=== PATIENT | male | born 1945 | race Caucasian/White ===

== ENCOUNTER 2016-12-26 10:43 | Emergency (ER) | payer MEDICARE, OTHER ==
[~2016-12-26] VITALS: Ht 190.5 cm; Wt 131.5 kg
[2016-12-26] MEDS ORDERED: TYLE1TAB5 PO (10:56)
[2016-12-26] MEDS ORDERED: ALBU17IN INH (10:56)
[2016-12-26 11:44] LABS: BASO % 0.5 % (0.0-1.0); EOS # 0.1 K/mm3 (0.0-0.50); EOS % 2.7 % (0.0-3.0); LARGE UNSTAINED CELL # 0.1 K/mm3 (0.0-0.4); LARGE UNSTAINED CELL % 2.2 % (0.0-4.0); LYMPH # 0.7 K/mm3 (1.5-4.5); LYMPH % 15.9 % (24.0-44.0); MEAN CORPUSCULAR HEMOGLOBIN 31.5 pg (27.0-33.0); MEAN CORPUSCULAR HGB CONC 34.5 g/dl (32.0-36.5); MEAN CORPUSCULAR VOLUME 91.2 fl (80.0-96.0); MONO # 0.3 K/mm3 (0.0-0.8); MONO % 7.9 % (0.0-5.0); NEUTROPHILS # 2.8 K/mm3 (1.8-7.7); NEUTROPHILS % 70.8 % (36.0-66.0); PLATELET COUNT, AUTOMATED 147 k/mm3 (150-450); RED CELL DISTRIBUTION WIDTH 13.6 % (11.5-14.5); WHITE BLOOD COUNT 3.9 K/mm3 (4.0-10.0)
[2016-12-26 11:45] LABS: INR 1.09
[2016-12-26 12:05] LABS: ANION GAP 9 MEQ/L (8-16); BLOOD UREA NITROGEN 17 MG/DL (7-18); CALCIUM LEVEL 8.3 MG/DL (8.8-10.2); CARBON DIOXIDE LEVEL 24 MEQ/L (21-32); CHLORIDE LEVEL 110 MEQ/L (98-107); CREATININE FOR GFR 0.87 MG/DL (0.70-1.30); GLOMERULAR FILTRATION RATE > 60.0 (>49); GLUCOSE, FASTING 124 MG/DL (80-110); POTASSIUM SERUM 4.1 MEQ/L (3.5-5.1); SODIUM LEVEL 143 MEQ/L (136-145)
--- NOTE | 2016-12-26 12:16 | REP ---
CT study of the brain without contrast: History: CVA. No comparison study. Findings: Digital preliminary assistant research scientist radiograph is unremarkable. Bone window settings demonstrate an intact bony calvarium. Visualized paranasal sinuses are clear. No intraorbital abnormality is appreciated. There is mild diffuse atrophy. Mild vascular calcification is noted in the distal carotid arteries. There is no evidence of intracranial hemorrhage. No extra-axial fluid collection, mass, infarct or midline shift is seen. Salmeron white differentiation pattern is normal above and below the tentorium. Impression: Mild diffuse atrophy and vascular calcification. No acute intracranial abnormality. Signed by Silviano Dinero MD 12/26/2016 01:14 P
--- NOTE | 2016-12-26 12:25 | REP ---
Portable chest x-ray: Single view. History: CVA. Findings: EKG monitoring electrodes overlie the chest. The lungs are symmetrically aerated and clear. Heart is not enlarged. The aorta is slightly tortuous. No bony abnormality is seen. Pulmonary vasculature is not increased. Impression: No active disease. Signed by Silviano Dinero MD 12/26/2016 01:14 P
[2016-12-26] MEDS ORDERED: MECLIZINE 25 MG TABLET PO ONE (12:30)
[2016-12-26] MEDS ORDERED: NS 500 ML IV ONE (13:15)
--- NOTE | 2016-12-26 15:06 | REP ---
Brain MRI study without contrast: History: Vertigo. Technique: Axial and sagittal imaging planes are utilized for T1 and T2-weighted scans. Sequences include spin-echo, fast spin echo, FLAIR, and diffusion weighted sequences. MRI findings: No bony calvarial lesion is seen. Craniocervical junction and upper cervical cord are normal in appearance. There is no MR evidence of significant paranasal sinus disease. No intraorbital abnormality is appreciated. There is no evidence of intracranial hemorrhage. Diffusion weighted scan show no evidence to suggest acute ischemia. Salmeron-white differentiation pattern is normal above and below the tentorium. There is no evidence of infarct, mass, extra-axial fluid collection or midline shift. Impression: Minimal diffuse atrophy, no acute intracranial lesion. Signed by Silviano Dinero MD 12/26/2016 05:11 P
--- NOTE | 2016-12-26 15:45 | REP ---
MR angiography the brain without contrast: History: Vertigo. Technique: 3-D [id number] MR angiography of the brain is acquired in the usual fashion and maximal intensity projection images were generated in rotational format about the vertical and horizontal axes. In addition, source axial T1-weighted images are viewed in cine mode. MR angiographic findings: The distal vertebral arteries are patent , left larger than right. Basilar artery is a little tortuous but widely patent. The posterior cerebral and superior cerebellar vessels are normal and symmetric. The distal internal carotid arteries are unremarkable. Anterior and middle cerebral arteries appear intact. The A1 segment of the right anterior cerebral artery is somewhat hypoplastic but patent. There is no visible st aneurysm or arteriovenous malformation. Impression: Unremarkable MR angiography the brain. Signed by Silviano Dinero MD 12/26/2016 03:36 P
[2016-12-26 16:44] VITALS: BP 149/88
[2016-12-26] MEDS ORDERED: MECL-68 PO (16:47)
--- NOTE | 2016-12-26 20:33 | ECGEPIP ---
Stationary ECG Study [facility] - ED Test Date: 2016-12-26 Pat Name: COREY SANDHU Department: Room: - Gender: M Java Systems Analyst: ct : 1945 Requested By: Yamilka Herbert Order Number: [id number] Reading MD: Yamilka Herbert Measurements Intervals Margie Rate: 52 P: 53 UT: 158 QRS: -4 QRSD: 108 T: 58 QT: 450 QTc: 419 Interpretive Statements SINUS BRADYCARDIA NSTTW ABNORMALITY NO PRIOR FOR COMPARISON Electronically Signed On 12-26-2016 20:33:09 EDT by Yamilka Herbert
== END 2016-12-26 17:02 | disposition home or self-care (01) ==
LOC: EDBD 10:43 → M ED 11:51
DX: H81.10 Benign paroxysmal vertigo, unspecified ear (principal); R51 Headache

== ENCOUNTER → 2017-02-21 | Outpatient (REF) | payer MEDICARE, OTHER ==
[~2017-02-21] MED LIST: ALBU17IN INH; MECL-68 PO; TYLE1TAB5 PO
== END ==
LOC: M LAB REF 12:48
PROVIDERS: ATTEND Family Medicine
DX: R74.0 Nonspecific elevation of levels of transaminase and lactic acid dehydrogenase [LDH] (principal)

== ENCOUNTER → 2017-03-16 | Outpatient (CLI) | payer MEDICARE, OTHER ==
--- NOTE | 2017-03-16 16:35 | REP ---
Digital diagnostic bilateral mammography with CAD and focused bilateral breast sonography: History: Lump in the left breast for 3 months. Becoming more tender. The patient has positive family history breast carcinoma in a sister and prostate carcinoma in a brother. Comparison mammography is from 08/29/2010. Mammographic findings: A skin marker is affixed to the skin at the site of the palpable lump. This projects in the upper outer quadrant of the left breast. Routine CC and MLO views of each breast were obtained. There is a flame-shaped area of subareolar parenchymal density in each breast compatible with gynecomastia. This is a little more extensive and prominent on the left than the right. No mass-like density is seen. No spiculation or architectural distortion is seen. No skin thickening or micro calcific cluster is observed. Sonographic findings: The left breast palpable lump area at 3 o'clock is scanned and bilateral retroareolar regions are scanned. Somewhat heterogeneous fibroglandular background echotexture is seen. No mass is seen by ultrasound at the palpable lump or elsewhere. No cyst is observed. Impression: BIRADS category II benign bilateral breast imaging findings. Findings compatible with bilateral gynecomastia, left more extensively than right. Clinical follow-up is advised. This mammogram was interpreted with the aid of an FDA-approved computer-aided detection system. The patient states he had a clinical breast exam in March 2017. The patient letter being requested is male patient M2. Signed by Silviano Dinero MD 03/16/2017 05:01 P
== END ==
LOC: M RAD 13:33
PROVIDERS: ATTEND Surgery
DX: N64.4 Mastodynia (principal)
CPT/HCPCS: 76642; G0204

== ENCOUNTER 2017-08-02 06:59 | Day surgery (SDC) | payer MEDICARE, OTHER ==
[~2017-08-02] VITALS: Ht 162.6 cm; Wt 125.2 kg
[~2017-08-02 06:59] MED LIST changes: +OMEP20CA3 PO; +VALA500T2 PO
[2017-08-02] MEDS ORDERED: LR 1,000 ML IV SCH ×3 (07:15→10:15)
[2017-08-02] MEDS ORDERED: BUPIVACAINE/EPIN 0.25% 30 ML VIAL As Ordered ONE (07:54)
[2017-08-02] MEDS ORDERED: LIDOCAINE 2% INJ 100 MG/5 ML SDV (FOR ANES.) As Ordered ONE (08:31)
[2017-08-02] MEDS ORDERED: PROPOFOL 200 MG/20 ML VIAL As Ordered ONE ×2 (08:31→08:55)
[2017-08-02] MEDS ORDERED: MIDAZOLAM INJ 2 MG/2 ML VIAL (J2250) As Ordered ONE (08:31)
[2017-08-02] MEDS ORDERED: fentaNYL 100 MCG/2 ML INJECTION (J3010) As Ordered ONE ×2 (08:31→08:57)
[2017-08-02] MEDS ORDERED: ONDANSETRON 4MG/2ML VIAL (J2405) As Ordered ONE (08:32)
[2017-08-02] MEDS ORDERED: METOCLOPRAMIDE INJ 10MG/2ML VIAL (J2765) As Ordered ONE (08:32)
[2017-08-02] MEDS ORDERED: KETOROLAC 60 MG/2 ML VIAL (J1885) As Ordered ONE (09:23)
--- NOTE | 2017-08-02 09:46 | RO ---
DATE OF PROCEDURE: 08/02/2017 PREPROCEDURE DIAGNOSIS: Left breast mass. POSTPROCEDURE DIAGNOSIS: Left gynecomastia. PROCEDURE: Left subcutaneous mastectomy for gynecomastia. SURGEON: Dr. Morgan Almaraz. DOCUMENTATION LIAISON: ANESTHESIA: General endotracheal anesthesia. ESTIMATED BLOOD LOSS: Minimal. FLUIDS: Crystalloid. DESCRIPTION OF PROCEDURE: The patient was brought to the operating and was given general anesthesia. After adequate anesthesia and preoperative antibiotics were given, the patient was prepped and draped in the usual sterile fashion. Local lidocaine mixed with epinephrine was infiltrated in the skin and subcutaneous tissue. A incision around the periareolar site was made with a skin knife. Electrocautery was used to cut through dermis and underlying subcutaneous tissue down to the breast tissue itself starting superiorly. The breast tissue was seen and dissection on the breast tissue/adipose tissue was created doing some blunt dissection as well as electrocautery. This was done on the superior aspect as well as the inferior aspect and then the posterior tissue attached to the nipple areolar complex was transected using electrocautery. After circumferentially doing some dissection anteriorly, dissection continued on the medial side until I got to a plane that was posterior to this breast tissue itself. Then it was dissected both superiorly and inferiorly using blunt dissection as well as electrocautery staying on the breast tissue. This was right down to the level of the fascia. It was mobilized off the fascia out to the lateral aspects, which was transected with electrocautery. Good hemostasis was achieved with electrocautery and the area was copious irrigated till clear. #3-0 Vicryl was used to approximate the dermis, #4-0 Vicryl was used to approximate the skin. Steri-Strips and a dry sterile dressing were applied. The patient was awakened from anesthesia, extubated and brought to the recovery room, awake, alert and hemodynamically stable. Sponge and needle counts were correct times two.
[2017-08-02] MEDS ORDERED: fentaNYL 100 MCG/2 ML INJECTION (J3010) IV PRN (10:00)
[2017-08-02] MEDS ORDERED: PERCOCET 5MG/325MG TAB PO PRN (10:00)
[2017-08-02] MEDS ORDERED: NORCO, ANEXSIA 5/325MG TABLET (HYDROcodone/ACETAMINOPHEN) PO PRN (10:15)
[2017-08-02] MEDS ORDERED: MORPHINE 2 MG/ML 1ML SYRINGE IV PRN (10:15)
[2017-08-02 10:58] VITALS: BP 119/76
[2017-08-02] MEDS ORDERED: KETOROLAC 30 MG/ML VIAL (J1885) IV PRN (15:00)
== END 2017-08-02 11:20 | disposition home or self-care (01) ==
LOC: M SDC 06:59
PROVIDERS: ATTEND Surgery
DX: N62 Hypertrophy of breast (principal); K21.9 Gastro-esophageal reflux disease without esophagitis; H81.49 Vertigo of central origin, unspecified ear; K44.9 Diaphragmatic hernia without obstruction or gangrene; M12.9 Arthropathy, unspecified; Z79.899 Other long term (current) drug therapy; Z96.653 Presence of artificial knee joint, bilateral
CPT/HCPCS: 19300; 88305; J0690; J1885; J2250; J2405; J2765; J3010

== ENCOUNTER → 2017-11-15 | Outpatient (REF) | payer MEDICARE, OTHER ==
[2017-11-15 15:43] LABS: TESTOSTERONE 446 NG/DL (241-827)
== END ==
LOC: M LAB REF 12:38
DX: F52.21 Male erectile disorder (principal)
CPT/HCPCS: 84403

== ENCOUNTER → 2018-07-04 | Outpatient (REF) | payer MEDICARE, OTHER ==
[2018-07-04 14:14] LABS: BASO % 0.5 % (0.0-1.0); EOS # 0.2 10^3/uL (0.0-0.50); EOS % 3.9 % (0.0-3.0); HEMATOCRIT 45.7 % (42.0-52.0); HEMOGLOBIN 15.8 g/dl (13.5-17.5); LYMPH # 0.8 10^3/uL (1.5-4.5); LYMPH % 19.4 % (24.0-44.0); MEAN CORPUSCULAR HEMOGLOBIN 32.3 pg (27.0-33.0); MEAN CORPUSCULAR HGB CONC 34.6 g/dl (32.0-36.5); MEAN CORPUSCULAR VOLUME 93.5 fl (80.0-96.0); MONO # 0.4 10^3/uL (0.0-0.8); MONO % 10.3 % (0.0-5.0); NEUTROPHILS # 2.7 10^3/uL (1.8-7.7); NEUTROPHILS % 64.9 % (36.0-66.0); PLATELET COUNT, AUTOMATED 194 10^3/uL (150-450); RED BLOOD COUNT 4.89 10^6/uL (4.30-6.10); RED CELL DISTRIBUTION WIDTH 12.6 % (11.5-14.5); WHITE BLOOD COUNT 4.1 10^3/uL (4.0-10.0)
[2018-07-04 14:47] LABS: CHLORIDE LEVEL 109 MEQ/L (98-107); FOLATE 13.7 NG/ML; POTASSIUM SERUM 4.3 MEQ/L (3.5-5.1); SODIUM LEVEL 142 MEQ/L (136-145)
[2018-07-04 15:15] LABS: ERYTHROCYTE SEDIMENTATION RATE 6 mm/hr (0-20)
[2018-07-04 15:32] LABS: ALT/SGPT 49 U/L (12-78); ANION GAP 10 MEQ/L (8-16); AST/SGOT 31 U/L (7-37); BLOOD UREA NITROGEN 14 MG/DL (7-18); CALCIUM LEVEL 8.6 MG/DL (8.8-10.2); CARBON DIOXIDE LEVEL 23 MEQ/L (21-32); CREATININE FOR GFR 0.83 MG/DL (0.70-1.30); GLOMERULAR FILTRATION RATE > 60.0 (>42); GLUCOSE, FASTING 100 MG/DL (70-100)
[2018-07-04 15:33] LABS: ALBUMIN 3.8 GM/DL (3.2-5.2); ALBUMIN/GLOBULIN RATIO 1.31 (1.00-1.93); ALKALINE PHOSPHATASE 103 U/L (45-117); BILIRUBIN,TOTAL 0.5 MG/DL (0.2-1.0); TOTAL PROTEIN 6.7 GM/DL (6.4-8.2)
[2018-07-04 16:01] LABS: ESTIMATED AVERAGE GLUCOSE 114 MG/DL (60-110); HEMOGLOBIN A1c 5.6 %
[2018-07-04 23:13] LABS: RHEUMATOID FACTOR QUANT < 10.0 IU/ML (<15.0); TOTAL PROTEIN 6.9 GM/DL (6.4-8.2)
[2018-07-06 11:13] LABS: ALBUMIN 4.08 GM/DL (3.29-5.55); ALBUMIN % 60.9 % (55.8-66.1); ALPHA-1-GLOBULIN % 4.2 % (2.9-4.9); ALPHA-1-GLOBULINS 0.28 GM/DL (0.17-0.41); ALPHA-2-GLOBULINS 0.62 GM/DL (0.42-0.99); ALPHA-2-GLOBULINS % 9.3 % (7.1-11.8); BETA-1-GLOBULINS 0.47 GM/DL (0.28-0.60); GAMMA GLOBULIN % 12.6 % (11.1-18.8); GAMMA GLOBULINS 0.84 GM/DL (0.65-1.58)
[2018-07-08 00:07] LABS: ANCA-ATYPICAL <1:20 titer (Neg:<1:20); ANTI DOUBLE STRAND-DNA AB 2 IU/mL (0-9); ANTINUCLEAR ANTIBODIES DIRECT Negative (Negative); COPPER PLASMA 105 ug/dL (72-166); CYTOPLASMIC NEUTROP AB ANCA-C <1:20 titer (Neg:<1:20); LEAD BLOOD ADULT 2 ug/dL (0-4); Lyme Disease IgG/IgM Antibodie <0.91 ISR (0.00-0.90); Lyme Disease IgM Ab Quantitati <0.80 index (0.00-0.79); MERCURY LEVEL 1.4 ug/L (0.0-14.9); PERINUCLEAR AB ANCA-P <1:20 titer (Neg:<1:20); SJOGREN'S ANTI SS-A 0.2 AI (0.0-0.9); SJOGREN'S ANTI SS-B <0.2 AI (0.0-0.9)
[2018-07-08 10:11] LABS: VITAMIN E(GAMMA TOCOPHEROL) 1.5 mg/L (0.5-4.9)
[2018-07-10 14:16] LABS: CERULOPLASMIN 23.4 mg/dL (16.0-31.0); VITAMIN B1 LEVEL WHOLE BLOOD 125.2 nmol/L (66.5-200.0); VITAMIN B6,PYRIDOXAL PHOSPHATE 2.8 ug/L (5.3-46.7)
[2018-07-11 10:30] LABS: PTT LUPUS TYPE ANTICOAG SCREEN 0.9 (0-1.2)
== END ==
LOC: M LABNEURO 13:11
DX: G62.9 Polyneuropathy, unspecified (principal)
CPT/HCPCS: 82525

== ENCOUNTER → 2019-01-16 | Outpatient (REF) | payer MEDICARE, OTHER ==
[~2019-01-16] MED LIST changes: -VALA500T2 PO; +VALA500T5 PO
== END ==
LOC: M LABNEURO 13:43
PROVIDERS: ATTEND Psychiatry & Neurology Neurology
DX: E53.8 Deficiency of other specified B group vitamins (principal)

== ENCOUNTER 2019-03-08 11:53 | Day surgery (SDC) | payer MEDICARE, OTHER ==
[~2019-03-08] VITALS: Ht 190.5 cm; Wt 127.0 kg
[~2019-03-08 11:53] MED LIST changes: +DULO1CAP2; +GABA-843; +PYRI25TA2 PO; +TAMS1CAP17
[2019-03-08] MEDS: NS 1,000 ML IV ONE (12:15)
[2019-03-08] MEDS ORDERED: PROPOFOL 200 MG/20 ML VIAL As Ordered ONE ×2 (12:30→12:49)
[2019-03-08] MEDS ORDERED: LIDOCAINE 2% INJ 100 MG/5 ML SDV (FOR ANES.) As Ordered ONE (12:31)
--- NOTE | 2019-03-08 13:14 | ROOR ---
Patient Name: Arik Valiente Procedure Date: 03/08/2019 12:33 PM Date of : 1945 Age: 73 Room: [facility] Gender: Male Note Status: Finalized Procedure: Colonoscopy Indications: High risk colon cancer surveillance: Personal history of colonic polyps Providers: Morgan Almaraz Jr, MD Referring MD: Neo Sánchez MD Requesting Provider: Medicines: Propofol per Anesthesia Complications: No immediate complications. Procedure: Pre-Anesthesia Assessment: - Prior to the procedure, a History and Physical was performed, and patient medications and allergies were reviewed. The patient is competent. The risks and benefits of the procedure and the sedation options and risks were discussed with the patient. All questions were answered and informed consent was obtained. Patient identification and proposed procedure were verified by the physician and the nurse in the pre-procedure area and in the procedure room. Mental Status Examination: alert and oriented. Airway Examination: normal oropharyngeal airway and neck mobility. Respiratory Examination: clear to auscultation. CV Examination: normal. ASA Grade Assessment: II - A patient with mild systemic disease. After reviewing the risks and benefits, the patient was deemed in satisfactory condition to undergo the procedure. The anesthesia plan was to use moderate sedation / analgesia (conscious sedation). Immediately prior to administration of medications, the patient was re-assessed for adequacy to receive sedatives. The heart rate, respiratory rate, oxygen saturations, blood pressure, adequacy of pulmonary ventilation, and response to care were monitored throughout the procedure. The physical status of the patient was re-assessed after the procedure. The Colonoscope was introduced through the anus and advanced to the cecum, identified by appendiceal orifice and ileocecal valve. The colonoscopy was performed with moderate difficulty due to a redundant colon. The patient tolerated the procedure well. Findings: Four polyps were found in the rectum, sigmoid colon and ascending colon. The polyps were small in size. These polyps were removed with a hot snare. Resection was complete, but the polyp tissue was only partially retrieved. A medium polyp was found in the cecum. The polyp was sessile. The polyp was removed with a hot snare. Resection was complete, but the polyp tissue was only partially retrieved. To close a defect after polypectomy, one hemostatic clip was successfully placed. There was no bleeding at the end of the procedure. Impression: - Four small polyps in the rectum, in the sigmoid colon and in the ascending colon, removed with a hot snare. Complete resection. Partial retrieval. - One medium polyp in the cecum, removed with a hot snare. Complete resection. Partial retrieval. Clip was placed. Recommendation: - Repeat colonoscopy in 3 - 5 years for surveillance. Morgan Almaraz MD Morgan Almaraz Jr, MD 03/08/2019 1:13:42 PM Electronically signed by Morgan Almaraz Jr, MD Number of Addenda: 0 Note Initiated On: 03/08/2019 12:33 PM Estimated Blood Loss: Estimated blood loss: none.
[2019-03-08 13:35] VITALS: BP 142/84
== END 2019-03-08 13:45 | disposition home or self-care (01) ==
LOC: M OPP 11:53
PROVIDERS: ATTEND Surgery
DX: D12.0 Benign neoplasm of cecum (principal); D12.2 Benign neoplasm of ascending colon; D12.5 Benign neoplasm of sigmoid colon; K62.1 Rectal polyp; Z86.010 Personal history of colon polyps

== ENCOUNTER → 2019-04-25 | Outpatient (CLI) | payer MEDICARE, OTHER ==
[~2019-04-25] MED LIST changes: -DULO1CAP2; +DULO1CAP5; -OMEP20CA3 PO; +OMEP20CA4 PO
[2019-04-28 00:06] LABS: Lyme Disease IgG/IgM Antibodie <0.91 ISR (0.00-0.90); Lyme Disease IgM Ab Quantitati <0.80 index (0.00-0.79)
== END ==
LOC: M LAB 15:45
PROVIDERS: ATTEND Physician Assistant
DX: Z13.9 Encounter for screening, unspecified (principal); W57.XXXA Bitten or stung by nonvenomous insect and other nonvenomous arthropods, initial encounter; Y92.89 Other specified places as the place of occurrence of the external cause

== ENCOUNTER → 2019-07-26 | Outpatient (REF) | payer MEDICARE, OTHER | LOC: M LABNEURO 13:10 | PROVIDERS: ATTEND Psychiatry & Neurology Neurology | DX: E55.9 Vitamin D deficiency, unspecified (principal) ==

== ENCOUNTER 2020-09-03 15:03 | Outpatient (RCR) | payer MEDICARE, OTHER ==
[~2020-09-03 15:03] MED LIST changes: -MECL-68 PO; +MECL1TAB31 PO; +OMEP1CAP73 PO; -OMEP20CA4 PO
== END 2020-09-08 ==
LOC: M PT 15:03
PROVIDERS: ATTEND Orthopaedic Surgery
DX: Z96.611 Presence of right artificial shoulder joint (principal)

== ENCOUNTER 2020-10-06 09:53 | Outpatient (RCR) | payer MEDICARE, OTHER | END 2020-10-09 | LOC: M PT 09:53 | PROVIDERS: ATTEND Orthopaedic Surgery | DX: Z47.1 Aftercare following joint replacement surgery (principal); Z96.611 Presence of right artificial shoulder joint ==

== ENCOUNTER 2020-11-06 09:46 | Outpatient (RCR) | payer MEDICARE, OTHER ==
[~2020-11-06 09:46] MED LIST changes: +GABA-282; -GABA-843
== END 2020-11-09 ==
LOC: M PT 09:46
PROVIDERS: ATTEND Orthopaedic Surgery
DX: Z47.89 Encounter for other orthopedic aftercare (principal); Z96.611 Presence of right artificial shoulder joint

== ENCOUNTER 2020-11-27 09:53 | Outpatient (RCR) | payer MEDICARE, OTHER | END 2020-12-07 | LOC: M PT 09:53 | PROVIDERS: ATTEND Orthopaedic Surgery | DX: Z47.89 Encounter for other orthopedic aftercare (principal); Z96.611 Presence of right artificial shoulder joint ==

== ENCOUNTER 2021-01-14 19:55 | Emergency (ER) | payer MEDICARE, OTHER ==
[~2021-01-14] VITALS: Ht 190.5 cm; Wt 133.9 kg
[2021-01-14] MEDS ORDERED: NEOSPORIN OINT 0.9 GM PKT TOP ONE (22:35)
[2021-01-14] MEDS ORDERED: LIDOCAINE 1% MDV 20ML VIAL SC ONE (22:35)
[2021-01-14] MEDS ORDERED: BOOSTRIX/ADACEL VACCINE (DIPHTH/PERTUSS/ACELL/TETANUS) 0.5ML SYR IM ONE (22:35)
[2021-01-14] MEDS ORDERED: CEPH500C PO (23:24)
[2021-01-14] MEDS ORDERED: CEPHALEXIN 500 MG CAP PO ONE (23:30)
[2021-01-15 00:14] VITALS: BP 138/86
== END 2021-01-15 00:16 | disposition home or self-care (01) ==
LOC: M ED 19:55
DX: S61.216A Laceration without foreign body of right little finger without damage to nail, initial encounter (principal); S80.212A Abrasion, left knee, initial encounter; W19.XXXA Unspecified fall, initial encounter; Y92.9 Unspecified place or not applicable; Y93.55 Activity, bike riding; Y99.9 Unspecified external cause status; K21.9 Gastro-esophageal reflux disease without esophagitis; Z79.899 Other long term (current) drug therapy

== ENCOUNTER 2021-01-18 07:58 | Emergency (ER) | payer MEDICARE, OTHER ==
[~2021-01-18] VITALS: Ht 190.5 cm; Wt 133.7 kg
[~2021-01-18 07:58] MED LIST changes: +CEPH500C PO
[2021-01-18] MEDS ORDERED: ACET-683 PO (09:23)
--- NOTE | 2021-01-18 09:28 | REP ---
INDICATION: trauma/pain COMPARISON: None. TECHNIQUE: Three views left shoulder. FINDINGS: There is no evidence of acute fracture, dislocation, or intrinsic bone disease.There is mild tendinous calcification along the superolateral humeral head. There is mild spurring of the acromioclavicular joint. IMPRESSION: No fracture or dislocation. <Electronically signed by Bartolo Salmeron > 01/18/21 0933
[2021-01-18 09:29] VITALS: BP 123/77
--- NOTE | 2021-01-18 09:40 | REP ---
INDICATION: trauma/pain. COMPARISON: Chest 12/26/2016. TECHNIQUE: Four views left ribs, frontal view chest. FINDINGS: There is no evidence of left rib fracture or bone lesion. Lungs are free of infiltrate. There is mild elevation of the right hemidiaphragm. There is mild calcification of the thoracic aorta. The heart and mediastinum are otherwise unremarkable and unchanged. IMPRESSION: Essentially negative left rib series. <Electronically signed by Bartolo Salmeron > 01/18/21 0935
== END 2021-01-18 09:31 | disposition home or self-care (01) ==
LOC: M ED 07:58
DX: S20.302A Unspecified superficial injuries of left front wall of thorax, initial encounter (principal); S43.402A Unspecified sprain of left shoulder joint, initial encounter; V18.0XXA Pedal cycle driver injured in noncollision transport accident in nontraffic accident, initial encounter; Y92.89 Other specified places as the place of occurrence of the external cause; Y93.55 Activity, bike riding; Y99.9 Unspecified external cause status; K21.9 Gastro-esophageal reflux disease without esophagitis; N42.9 Disorder of prostate, unspecified; Z79.899 Other long term (current) drug therapy

== ENCOUNTER 2021-02-03 18:46 | Outpatient (RCR) | payer MEDICARE, OTHER ==
[~2021-02-03 18:46] MED LIST changes: +ACET-683 PO
== END 2021-02-06 ==
LOC: M PT 18:46
PROVIDERS: ATTEND Orthopaedic Surgery
DX: M25.512 Pain in left shoulder (principal)

== ENCOUNTER 2021-03-05 15:07 | Outpatient (RCR) | payer MEDICARE, OTHER | END 2021-03-09 | LOC: M PT 15:07 | PROVIDERS: ATTEND Psychiatry & Neurology Neurology | DX: M25.512 Pain in left shoulder (principal) ==

== ENCOUNTER 2021-03-16 12:55 | Outpatient (RCR) | payer MEDICARE, OTHER | END 2021-04-08 | LOC: M PT 12:55 | PROVIDERS: ATTEND Psychiatry & Neurology Neurology | DX: M48.061 Spinal stenosis, lumbar region without neurogenic claudication (principal); M62.81 Muscle weakness (generalized); M25.512 Pain in left shoulder ==

== ENCOUNTER → 2021-04-15 | Outpatient (REF) | payer MEDICARE, OTHER ==
[2021-04-15 12:25] LABS: INR 0.96; PARTIAL THROMBOPLASTIN TIME 26.6 SECONDS (24.2-38.5)
== END ==
LOC: M LAB REF 11:57
PROVIDERS: ATTEND Family Medicine
DX: Z01.818 Encounter for other preprocedural examination (principal); M54.5 Low back pain

== ENCOUNTER 2021-05-07 09:59 | Outpatient (RCR) | payer MEDICARE, OTHER | END 2021-05-09 | LOC: M PT 09:59 | PROVIDERS: ATTEND Orthopaedic Surgery | DX: M48.061 Spinal stenosis, lumbar region without neurogenic claudication (principal); M62.81 Muscle weakness (generalized); M25.512 Pain in left shoulder; Z98.890 Other specified postprocedural states; Z47.89 Encounter for other orthopedic aftercare ==

== ENCOUNTER 2021-05-26 09:53 | Outpatient (RCR) | payer MEDICARE, OTHER | END 2021-06-09 | LOC: M PT 09:53 | PROVIDERS: ATTEND Orthopaedic Surgery | DX: Z47.89 Encounter for other orthopedic aftercare (principal); Z98.890 Other specified postprocedural states ==

== ENCOUNTER → 2021-06-05 | Outpatient (CLI) | payer MEDICARE, OTHER ==
[~2021-06-05] MED LIST changes: +E-Z-GAS II EFFERVESCENT PACKET (SODIUM BICARB./CITRIC ACID/SIMETHICONE) As Ordered ONE; +E-Z-HD 98% w/w 340GM SUSP BTL As Ordered ONE; +E-Z-PAQUE 96% w/w SUSP 176GM BTL As Ordered ONE
--- NOTE | 2021-06-05 16:27 | REP ---
INDICATION: DYSPHAGIA. COMPARISON: None TECHNIQUE: This procedure was performed by Komal Giron, [facility], under the direct supervision of Dr. Dinero. Images were reviewed with Dr. Dinero prior to dictation. Liquid barium and gas producing crystals were given in the erect position, as well as liquid barium in the prone oblique position in order to perform a double contrast esophagram examination. FINDINGS: A single view PA chest x-ray is submitted as a frame operator film. The superior mediastinal structures are midline. The heart size is within normal limits. The lungs are clear. There is degenerative disc disease of the cervical spine. The oral and pharyngeal stages of deglutition were unremarkable. 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 There is also a mucosal ulceration in the distal esophagus. These findings are consistent with moderate esophagitis. There is no evidence of a hiatal hernia. No gastroesophageal reflux was visualized during the exam. 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 0.3 minutes of fluoroscopy time was utilized for this procedure. Some fluoroscopic images are performed with last image hold technology. These images require no additional radiation. <Electronically signed by Komal Giron > 06/05/21 160 <Electronically signed by Naldo Dinero > 06/05/21 [id number]
== END ==
LOC: M RAD 08:16
PROVIDERS: ATTEND Family Medicine
DX: R13.10 Dysphagia, unspecified (principal); K20.90 Esophagitis, unspecified without bleeding

== ENCOUNTER → 2021-07-09 | Outpatient (CLI) | payer MEDICARE, OTHER ==
[~2021-07-09] MED LIST changes: +CEFU1TAB22 PO; -E-Z-GAS II EFFERVESCENT PACKET (SODIUM BICARB./CITRIC ACID/SIMETHICONE) As Ordered ONE; -E-Z-HD 98% w/w 340GM SUSP BTL As Ordered ONE; -E-Z-PAQUE 96% w/w SUSP 176GM BTL As Ordered ONE; -TAMS1CAP17; +TAMS1CAP17 PO; +VITA100T14 PO
== END ==
LOC: M LABSMTC 10:25
PROVIDERS: ATTEND Anesthesiology
DX: Z01.812 Encounter for preprocedural laboratory examination (principal); Z20.822 Contact with and (suspected) exposure to COVID-19

== ENCOUNTER 2021-07-14 09:53 | Day surgery (SDC) | payer MEDICARE, OTHER ==
[~2021-07-14] VITALS: Ht 190.5 cm; Wt 108.0 kg
[~2021-07-14 09:53] MED LIST changes: +LIDOCAINE 1% MDV 20ML VIAL SQ PRN; +LR 1,000 ML IV ONE; +ceFAZolin SOD 2 GM in IV 1 EA IV ONE
[2021-07-14] MEDS ORDERED: LIDOCAINE 2% 100MG/5ML SDV (FOR ANES.) As Ordered ONE (10:49)
[2021-07-14] MEDS ORDERED: ROCURONIUM BROMIDE 50 MG/5 ML VIAL As Ordered ONE (10:49)
[2021-07-14] MEDS ORDERED: propofoL 200 MG/20 ML VIAL As Ordered ONE (10:49)
[2021-07-14] MEDS ORDERED: MIDAZOLAM INJ 2MG/2ML VIAL (J2250 PER 1MG) As Ordered ONE (10:50)
[2021-07-14] MEDS ORDERED: fentaNYL 250 MCG/5 ML INJECTION (J3010) As Ordered ONE (10:50)
[2021-07-14] MEDS ORDERED: BUPIVACAINE/EPIN 0.25% 30 ML VIAL As Ordered ONE (12:40)
[2021-07-14] MEDS ORDERED: BUPIVACAINE HCL 0.25% 30ML VIAL As Ordered ONE (12:41)
[2021-07-14] MEDS ORDERED: BUPIVACAINE LIPOSOME/PF 1.3% 20ML VIAL (13.3MG/ML)(EXPAREL)(C9290 PER1MG) As Ordered ONE (12:41)
[2021-07-14] MEDS ORDERED: ONDANSETRON 4MG/2ML VIAL As Ordered ONE (13:26)
[2021-07-14] MEDS ORDERED: ACETAMINOPHEN 1000MG 100ML IV BTL (OFIRMEV) (J0131 PER 10MG) As Ordered ONE (13:26)
[2021-07-14] MEDS ORDERED: KETOROLAC 60MG 2ML VIAL As Ordered ONE (13:26)
[2021-07-14] MEDS ORDERED: SUGAMMADEX SODIUM 500 MG/5 ML VIAL (BRIDION) As Ordered ONE (13:27)
[2021-07-14] MEDS ORDERED: dexameTHASONE 4 MG/ML 1ML VIAL (J1100 PER 1MG) As Ordered ONE (13:27)
[2021-07-14] MEDS ORDERED: ONDANSETRON 4MG/2ML VIAL IV PRN (14:25)
[2021-07-14] MEDS ORDERED: MEPERIDINE INJ 25 MG/ML VIAL (J2175) IV PRN (14:25)
[2021-07-14] MEDS ORDERED: LR 1,000 ML IV SCH (14:25)
[2021-07-14] MEDS ORDERED: PERCOCET 5MG/325MG TAB PO PRN (14:25)
[2021-07-14] MEDS ORDERED: NORCO, ANEXSIA 5/325MG TABLET (HYDROcodone/ACETAMINOPHEN) PO PRN (14:25)
[2021-07-14] MEDS ORDERED: fentaNYL 100 MCG/2 ML INJECTION (J3010) IV PRN (14:25)
[2021-07-14 16:05] VITALS: BP 152/85
[2021-07-14] MEDS ORDERED: KETOROLAC 30 MG/ML 1ML VIAL IV SCH (20:00)
== END 2021-07-14 16:21 | disposition home or self-care (01) ==
LOC: M SDC 09:53
PROVIDERS: ATTEND Surgery
DX: K42.9 Umbilical hernia without obstruction or gangrene (principal); K44.9 Diaphragmatic hernia without obstruction or gangrene; K21.9 Gastro-esophageal reflux disease without esophagitis; N40.0 Benign prostatic hyperplasia without lower urinary tract symptoms; Z79.899 Other long term (current) drug therapy
CPT/HCPCS: 49585; 88302; C1781; C9290; J0131; J0690; J1100; J1885; J2250; J2405; J3010

== ENCOUNTER 2021-08-03 15:54 | Emergency (ER) | payer MEDICARE, OTHER ==
[~2021-08-03] VITALS: Ht 190.5 cm; Wt 127.3 kg
[~2021-08-03 15:54] MED LIST changes: -LIDOCAINE 1% MDV 20ML VIAL SQ PRN; -LR 1,000 ML IV ONE; -ceFAZolin SOD 2 GM in IV 1 EA IV ONE
--- OUTSIDE RECORDS SUMMARY | 2021-08-03 16:02 | CCD | Continuity of Care Document ---
Author Author Arik MUNOZ M.D. Organization Unknown Address [address] [facility] [address] [place] [address] Phone [phone] Care Team Providers Care Cloth Mender Name Role Phone Neo Munoz MD AUTM [phone] Miguel Carty MD AUTM [phone] Jesse uEceda DPM AUTM [phone] Arik Foss OD AUTM [phone] Brandon Shin MD AUTM [phone] Vick Monique M.D. AUTM [phone] Problems Active Problems Provider Date Primary "polygenic" combined hyperlipidemia Onset: Benign essential hypertension Onset: Osteoarthritis Onset: Gastroesophageal reflux disease Onset: 0 Social History Type Date Description Comments Sex Unknown ETOH Use consumes 3-4 beers per week Tobacco Use Start: Unknown Patient has never smoked Allergies and adverse reactions Description No Known Drug Allergies Medications Active Medications SIG Qnty Indications Ordering Provide r Date Omeprazole 20mg Capsules DR 1 by mouth every day prn GERD 90caps Neo Munoz M.D. 06/26/[address] Part by mouth daily 30caps Neo Munoz M.D. 10/31/2018 Flomax 0.4mg Capsules 1 by mouth every day 30jessie Munoz M.D. 10/31/2018 Gabapentin 300mg Capsules 1 by mouth three times a day 540caps K21.9 Neo Munoz M.D. 11/15/2017 Medications Administered in Office Medication SIG Qnty Indications Ordering Provider Date Covid-19 vaccine, Unspecified Inj ection Unknown 11/30/2020 Covid-19 vaccine, Unspecified Inj ection Unknown 11/11/2020 Administration Of Flu Vaccine Inj ection Neo Munoz M.D. 08/21/2018 Administration Of Flu Vaccine Inj ection Neo Munoz M.D. 08/09/2016 Immunizations CPT Code Status Date Vaccine Lot # U-Flu Given 06/23/2020 Influenza,Unspecified 48082 Given 08/21/2018 Influenza Virus Vaccine, Quadrivalent ([id number]), Derived From Cell [id number] Given 08/09/2016 Fluvirin Virus Vaccine [id number] 01 94076 Given 08/09/2014 Influenza Virus Vaccine 81738 Given 01/17/2014 Pneumovax 23 65674 Given 07/17/2013 Adacel- Tetanus Diphtheria P ertussis 77117 Given 07/17/2013 Influenza Virus Vaccine 84125 Given 09/05/2012 Influenza Virus Vaccine 29561 Given 11/15/2011 Influenza Virus Vaccine 25109 Given 10/10/1998 Adacel- Tetanus Diphtheria P ertussis 15421 Refused 02/16/2021 Prevnar 13 51571 Refused 01/17/2014 Zoster Vaccine 82668 Refused 10/12/2010 Influenza Virus Vaccine Vital Signs Date Vital Result Comment 06/09/2021 3:18pm BP Systolic 122 mmHg BP Diastolic 78 mmHg Heart Rate 78 /min Height 74 inches 6'2" Weight 281.00 lb BMI (Body Mass Index) 36.1 kg/m2 04/15/2021 10:03am BP Systolic 124 mmHg BP Diastolic 80 mmHg Heart Rate 76 /min Height 74 inches 6'2" Weight 284.00 lb BMI (Body Mass Index) 36.5 kg/m2 Results Test Acquired Date Facility Test Result H/L Range Note Coronavirus 2019 Nasopharygeal 07/09/2021 [facility] [address] [place], [place] [id number] [phone] Coronavirus 2019 Nasopharygeal ASSAY INFORMATIO <SEE N OTE> 1 Laboratory test finding 06/09/2021 [facility] sharon bedolla Body Maker: [place] [address] [phone] PSA 0.46 ng/mL <4.00 2 Complete Blood Count 06/09/2021 [facility] sharon sainz Body Maker: [place] [address] [phone] WBC 5.0 x10*3/UL 4.1 - 10.9 RBC 4.64 x10*6/UL 4.20 - 6.30 Hemoglobin 15.2 g/dL 12.0 - 18.0 Hematocrit 43.1 % 37.0 - 51.0 MCV 92.9 fL 80.0 - 97.0 MCH 32.8 pg High 26.0 - 32.0 MCHC 35.3 g/dL 31.0 - 38.0 RDW 13.2 % 11.6 - 13.7 PLT 240 x10*3/UL 140 - 440 MPV 7.9 FL 7.8 - 11.0 Lymph % 32.9 % 10.0 - 58.5 Mid % 8.2 % 1.7 - 9.3 Neut % 58.9 % 37.0 - 92.0 Lymph # 1.6 x10*3/UL 0.6 - 4.1 Mid # 0.5 x10*3/UL 0.1 - 0.6 Neut # 2.9 x10*3/UL 2.0 - 7.8 Comprehensive Chem Profile 06/09/2021 [facility] sh[facility] Starr Body Maker: [place] [address] [phone] Glucose 78 mg/dL 74 - 99 3 BUN 11 mg/dL 7 - 18 Creatinine 0.9 mg/dL 0.6 - 1.3 Sodium 141 mEq/L 136 - 145 Potassium 4.1 mEq/L 3.5 - 5.1 Chloride 108 mEq/L High 98 - 107 Carbon Dioxide 27 mEq/L 21 - 32 Calcium 8.8 mg/dL 8.5 - 10.1 Alk. Phosphatase 104 mg/dL 46 - 116 Total Bilirubin 0.5 mg/dL 0.2 - 1.0 Ast (Sgot) 28 U/L 15 - 37 Alt (SGPT) 45 U/L 12 - 78 Albumin 3.6 g/dL 3.4 - 5.0 Total Protein 6.6 g/dL 6.4 - 8.2 A/G Ratio 1.20 CALC 1.00 - 1.90 GFR >= 60 mL/min >60 GFR >= 60 mL/min >60 4 Laboratory test finding 06/09/2021 [facility] sharon bedolla Body Maker: [place] [address] [phone] Thyroid Stimulating Hormone 1.17 uIU/mL 0.3 6 - 3.74 PT & Aptt 04/15/2021 [facility] nter [address] [place] [address] [phone] Prothrombin Time 13.0 seconds Normal 12.5-14.3 Inr 0.96 Normal 5 Partial Thromboplastin Time 26.6 seconds Normal 24.2-38.5 Complete Blood Count 04/15/2021 [facility] Body Maker: [place] [address] [phone] WBC 4.7 x10*3/UL 4.1 - 10.9 RBC 4.79 x10*6/UL 4.20 - 6.30 Hemoglobin 15.3 g/dL 12.0 - 18.0 Hematocrit 44.2 % 37.0 - 51.0 MCV 92.4 fL 80.0 - 97.0 MCH 32.1 pg High 26.0 - 32.0 MCHC 34.7 g/dL 31.0 - 38.0 RDW 13.4 % 11.6 - 13.7 PLT 194 x10*3/UL 140 - 440 MPV 7.8 FL 7.8 - 11.0 Lymph % 34.2 % 10.0 - 58.5 Mid % 6.8 % 1.7 - 9.3 Neut % 59.0 % 37.0 - 92.0 Lymph # 1.6 x10*3/UL 0.6 - 4.1 Mid # 0.4 x10*3/UL 0.1 - 0.6 Neut # 2.7 x10*3/UL 2.0 - 7.8 Comprehensive Chem Profile 04/15/2021 [facility] sharon Starr Body Maker: [place] [address] [phone] Glucose 107 mg/dL High 74 - 99 6 BUN 16 mg/dL 7 - 18 Creatinine 1.0 mg/dL 0.6 - 1.3 Sodium 141 mEq/L 136 - 145 Potassium 4.2 mEq/L 3.5 - 5.1 Chloride 104 mEq/L 98 - 107 Carbon Dioxide 27 mEq/L 21 - 32 Calcium 8.5 mg/dL 8.5 - 10.1 Alk. Phosphatase 93 mg/dL 46 - 116 Total Bilirubin 0.7 mg/dL 0.2 - 1.0 Ast (Sgot) 30 U/L 15 - 37 Alt (SGPT) 50 U/L 12 - 78 Albumin 3.6 g/dL 3.4 - 5.0 Total Protein 6.3 g/dL Low 6.4 - 8.2 A/G Ratio 1.33 CALC 1.00 - 1.90 GFR >= 60 mL/min >60 GFR >= 60 mL/min >60 7 Comprehensive Chem Profile 02/13/2021 [facility], Body Maker: [place] [address] [phone] Glucose 106 mg/dL High 74 - 99 8 BUN 16 mg/dL 7 - 18 Creatinine 1.0 mg/dL 0.6 - 1.3 Sodium 142 mEq/L 136 - 145 Potassium 4.1 mEq/L 3.5 - 5.1 Chloride 105 mEq/L 98 - 107 Carbon Dioxide 29 mEq/L 21 - 32 Calcium 8.5 mg/dL 8.5 - 10.1 9 Alk. Phosphatase 146 mg/dL High 46 - 116 Total Bilirubin 0.6 mg/dL 0.2 - 1.0 Ast (Sgot) 37 U/L 15 - 37 Alt (SGPT) 64 U/L 12 - 78 Albumin 3.9 g/dL 3.4 - 5.0 Total Protein 6.9 g/dL 6.4 - 8.2 A/G Ratio 1.30 CALC 1.00 - 1.90 GFR >= 60 mL/min >60 GFR >= 60 mL/min >60 10 Lipid Profile 02/13/2021 [facility] Body Maker: [place] [address] [phone] Cholesterol 182 mg/dL 131 - 200 Triglycerides 93 mg/dL 30 - 150 HDL Cholesterol 52 mg/dL 35 - 60 LDL (Calculated) 111 CALC 50 - 159 1 ASSAY INFORMATION: Real Time RT-PCR NOTE: The COVID-19 assay has been cleared by the U.S. Food and Drug Administration under the Emergency Use Authorization (EUA). [facility] and [facility] are designated as high complexity laboratories by the Clinical Laboratory Improvement Amendments of 1988(CLIA) and are qualified to perform this test. Not Detected 2 This assay was performed on the Siemens Dimension EXL using the B- Galactosidase/CPRG methodology and should not be compared interchangeably with other methods. The PSA should not be used alone as a screening test for the presence or absence of malignant disease. 3 100-125 mg/dL PRE-DIABET ES/FASTING >126 mg/dL DIABETES/FASTING 4 CHRONIC KIDNEY DISEASE STAGI NG PER NKF STAGE I & II GFR >= 60 NORMAL TO MILDLY DECREASED STAGE III GFR 30-59 MODERATELY DECREASED STAGE IV GFR 15-29 SEVERELY DECREASED STAGE V GFR <15 VERY LITTLE GFR LEFT ESRD GFR <15 ON PHOTOGRAPH PRINTER 5 THERAPUTIC HUMAN INR VALUES INDICATIONS NORMAL RANGES PROPHYLAXIS/TREATMENT OF: VENOUS THROMBOSIS 2.0-3.0 PULMONARY EMBOLISM 2.0-3.0 PREVENTION OF SYSTEMIC EMBOLISM FROM: TISSUE HEART VALVES 2.0-3.0 ACUTE MYOCARDIAL INFARCTION 2.0-3.0 VALVULAR HEART DISEASE 2.0-3.0 ATRIAL FIBRILLATION 2.0-3.0 MECHANICAL VALVES(HIGH RISK) 2.5-3.5 RECURRENT MYOCARDIAL INFARCTION 2.5-3.5 6 100-125 mg/dL PRE-DIABET ES/FASTING >126 mg/dL DIABETES/FASTING 7 CHRONIC KIDNEY DISEASE STAGI NG PER NKF STAGE I & II GFR >= 60 NORMAL TO MILDLY DECREASED STAGE III GFR 30-59 MODERATELY DECREASED STAGE IV GFR 15-29 SEVERELY DECREASED STAGE V GFR <15 VERY LITTLE GFR LEFT ESRD GFR <15 ON PHOTOGRAPH PRINTER 8 100-125 mg/dL PRE-DIABET ES/FASTING >126 mg/dL DIABETES/FASTING 9 NOTE: CALCIUM,ALK PHOS VERIFIED 10 CHRONIC KIDNEY DISEASE STAGI NG PER NKF STAGE I & II GFR >= 60 NORMAL TO MILDLY DECREASED STAGE III GFR 30-59 MODERATELY DECREASED STAGE IV GFR 15-29 SEVERELY DECREASED STAGE V GFR <15 VERY LITTLE GFR LEFT ESRD GFR <15 ON PHOTOGRAPH PRINTER Procedures Date Code Description Status 06/09/2021 67424 Office/Outpatient Established Mo d MDM 30-39 Min Completed 06/01/2021 34861 Chronic Care MGMT 20 Mins Clinical Staff Time Per Calendar Month Completed 05/06/2021 97627 Chronic Care MGMT 20 Mins Clinical Staff Time Per Calendar Month Completed 04/15/2021 04840 Office/Outpatient Established Mo d MDM 30-39 Min Completed 04/15/2021 64598 EKG/Interpretation & Report Comp leted 04/07/2021 55484 Chronic Care MGMT 20 Mins Clinical Staff Time Per Calendar Month Completed 02/23/2021 77167 Chronic Care MGMT 20 Mins Clinical Staff Time Per Calendar Month Completed 02/16/2021 76151 Office/Outpatient Established Mo d MDM 30-39 Min Completed 01/26/2021 74764 Complex Chronic Care MGMT Servic e Ea Addl 30 Min Completed 01/26/2021 43440 Complex Chronic Care Management SVC 1St 60 Min Completed 01/23/2021 52601 Office/Outpatient Established SF MDM 10-19 Min Completed 03/08/2019 55195140 Colonoscopy Completed 02/07/2014 59940590 Colonoscopy Completed Medical Devices Description No Information Available Encounters Type Date Location Provider Dx Diagnosis Office Visit 06/09/2021 3:00p [facility] Munoz M.D. E78.00 Pure hypercholesterolemia, unspecified K21.9 Gastro-esophageal reflux dis ease without esophagitis M54.5 Low back pain B00.89 Other herpesviral infection N40.0 Benign prostatic hyperplasia without lower urinry tract symp Z96.653 Presence of artificial knee joint, bilateral G60.9 Hereditary and idiopathic ne uropathy, unspecified Z86.010 Personal history of colonic polyps Z12.5 Encounter for screening for malignant neoplasm of prostate Office Visit 04/15/2021 10:00a [facility] bedolla M.D. Z01.818 Encounter for other preprocedural examin ation M54.5 Low back pain E78.5 Hyperlipidemia, unspecified K21.9 Gastro-esophageal reflux dis ease without esophagitis B00.89 Other herpesviral infection N40.0 Benign prostatic hyperplasia without lower urinry tract symp F52.21 Male erectile disorder M19.90 Unspecified osteoarthritis, unspecified site Z96.652 Presence of left artificial knee joint Z96.651 Presence of right artificial knee joint Office Visit 02/16/2021 9:30a [facility] E78.5 Hyperlipidemia, unspecified I10 Essential (primary) hyperten rene K21.9 Gastro-esophageal reflux dis ease without esophagitis N40.0 Benign prostatic hyperplasia without lower urinry tract symp M54.5 Low back pain B00.89 Other herpesviral infection G60.9 Hereditary and idiopathic ne uropathy, unspecified R13.10 Dysphagia, unspecified M25.512 Pain in left shoulder S70.02xA Contusion of left hip, initi al encounter W19.xxxA Unspecified fall, initial en counter Y93.55 Activity, bike riding Office Visit 01/23/2021 1:40p [facility], PA M25.512 Pain in left shoulder Z48.02 Encounter for removal of sut ures Assessments Date Code Description Provider 06/09/2021 E78.00 Pure hypercholesterolemia, unspe cified Neo Munoz M.D. 06/09/2021 K21.9 Gastro-esophageal reflux disease without esophagitis Neo Munoz M.D. 06/09/2021 M54.5 Low back pain Neo Munoz M.D. 06/09/2021 B00.89 Other herpesviral infection Susana Munoz M.D. 06/09/2021 N40.0 Benign prostatic hyp erplasia without lower urinary tract symptoms Neo Munoz M.D. 06/09/2021 Z96.653 Presence of artificial knee join t, bilateral Neo Munoz M.D. 06/09/2021 G60.9 Hereditary and idiopathic neurop athy, unspecified Neo Munzo M.D. 06/09/2021 Z86.010 Personal history of colonic poly ps Neo Munoz M.D. 06/09/2021 Z12.5 Encounter for screening for sagrario gnant neoplasm of prostate Neo Munoz M.D. 06/01/2021 E78.00 Pure hypercholesterolemia, unspe cified Neo Munoz M.D. 06/01/2021 I10 Essential (primary) hypertension Neo Munoz M.D. 06/01/2021 K21.9 Gastro-esophageal reflux disease without esophagitis Neo Munoz M.D. 05/06/2021 E78.00 Pure hypercholesterolemia, unspe cified Neo Munoz M.D. 05/06/2021 I10 Essential (primary) hypertension Neo Munoz M.D. 05/06/2021 K21.9 Gastro-esophageal reflux disease without esophagitis Neo Munoz M.D. 04/15/2021 Z01.818 Encounter for other preprocedura l examination Neo Munoz M.D. 04/15/2021 M54.5 Low back pain Neo Munoz M.D. 04/15/2021 E78.5 Hyperlipidemia, unspecified Susana Munoz M.D. 04/15/2021 K21.9 Gastro-esophageal reflux disease without esophagitis Neo Munoz M.D. 04/15/2021 B00.89 Other herpesviral infection Susana Munoz M.D. 04/15/2021 N40.0 Benign prostatic hyp erplasia without lower urinary tract symptoms Neo Munoz M.D. 04/15/2021 F52.21 Male erectile disorder Neo Munoz M.D. 04/15/2021 M19.90 Unspecified osteoarthritis, unsp ecified site Neo Munoz M.D. 04/15/2021 Z96.652 Presence of left artificial knee joint Neo Munoz M.D. 04/15/2021 Z96.651 Presence of right artificial kne e joint Neo Munoz M.D. 04/07/2021 I10 Essential (primary) hypertension Neo Munoz M.D. 04/07/2021 K21.9 Gastro-esophageal reflux disease without esophagitis Neo Munoz M.D. 04/07/2021 E78.5 Hyperlipidemia, unspecified Susana Munoz M.D. 02/23/2021 I10 Essential (primary) hypertension Neo Munoz M.D. 02/23/2021 E78.5 Hyperlipidemia, unspecified Susana Munoz M.D. 02/23/2021 K21.9 Gastro-esophageal reflux disease without esophagitis Neo Munoz M.D. 02/16/2021 Z13.89 Encounter for screening for othe r disorder Neo Munoz M.D. 02/16/2021 Z13.89 Encounter for screening for othe r disorder Nurse #2 02/16/2021 Z86.010 Personal history of colonic poly ps Neo Munoz M.D. 02/16/2021 Z86.010 Personal history of colonic poly ps Nurse #2 02/16/2021 E78.5 Hyperlipidemia, unspecified Susana Munoz M.D. 02/16/2021 I10 Essential (primary) hypertension Neo Munoz M.D. 02/16/2021 K21.9 Gastro-esophageal reflux disease without esophagitis Neo Munoz M.D. 02/16/2021 N40.0 Benign prostatic hyp erplasia without lower urinary tract symptoms Neo Munoz M.D. 02/16/2021 M54.5 Low back pain Neo Munoz M.D. 02/16/2021 B00.89 Other herpesviral infection Susana Munoz M.D. 02/16/2021 G60.9 Hereditary and idiopathic neurop athy, neftaliified Neo Munoz M.D. 02/16/2021 R13.10 Dysphagia, neftaliified Neo Munoz M.D. 02/16/2021 M25.512 Pain in left shoulder Neo sosa M.D. 02/16/2021 S70.02xA Contusion of left hip, initial e ncounter Neo Munoz M.D. 02/16/2021 W19.xxxA Unspecified fall, initial encoun ter Neo Munoz M.D. 02/16/2021 Y93.55 Activity, bike riding Neo sosa M.D. 02/13/2021 K21.9 Gastro-esophageal reflux disease without esophagitis Neo Munoz M.D. 02/13/2021 K21.9 Gastro-esophageal reflux disease without esophagitis Lab Schedule 02/13/2021 I10 Essential (primary) hypertension Neo Munoz M.D. 02/13/2021 I10 Essential (primary) hypertension Lab Schedule 02/13/2021 E78.5 Hyperlipidemia, unspecified Susana Munoz M.D. 02/13/2021 E78.5 Hyperlipidemia, unspecified Lab Schedule 01/26/2021 I10 Essential (primary) hypertension Neo Munoz M.D. 01/26/2021 K21.9 Gastro-esophageal reflux disease without esophagitis Neo Munoz M.D. 01/26/2021 E78.00 Pure hypercholesterolemia, unspe cified Neo Munoz M.D. 01/26/2021 N40.0 Benign prostatic hyp erplasia without lower urinary tract symptoms Neo Munoz M.D. 01/23/2021 M25.512 Pain in left shoulder FELI Justin JR 01/23/2021 Z48.02 Encounter for removal of sutures FELI Coronel JR Plan of Treatment Future Appointment(s):* 12/10/2021 8:30 am - [facility] 06/09/2021 - Neo Munoz M.D.* E78.00 Pure hypercholesterolemia, unspecified * K21.9 Gastro-esophageal reflux disease without esophagitis * M54.5 Low back pain * B00.89 Other herpesviral infection * N40.0 Benign prostatic hyperplasia without lower urinry tract symp * Z96.653 Presence of artificial knee joint, bilateral * G60.9 Hereditary and idiopathic neuropathy, unspecified * Z86.010 Personal history of colonic polyps * Z12.5 Encounter for screening for malignant neoplasm of prostate * * Comments:* 1. Hypercholesterolemia: He has done well with diet alone prior. We will monitor.2. Gastro-esophageal reflux disease without esophagitis: Patient has stopped taking PPI and we discussed importance of taking this in view of his esophagitis on UGI study. He is going to see Dr. Almaraz for possible EGD. We will monitor.3. Low back pain: Significant improvement after surgery as above and will continue to follow up appropriately.4. Herpesviral infection: He has not needed Valtrex. No issues recently. We will monitor 5. Benign prostatic hyperplasia without lower urinry tract symp: Doing quite well on Flomax, will continue to monitor. We will readdress appropriately.6. Presence of artificial knee mauro nt, bilateral: Doing well. Continue to monitor.7. Hereditary and idiopathic neuropathy: Generally stable. He follows up at [facility] and will continue appropriate follow up. 8. Personal history of colonic polyps: Presence of total 5 polyps on last colonoscopy that was done on 03/08/[address] Morgan Almaraz. Patient is concerned about colon cancer as his son has recently been diagnosed with stage 3 colon cancer. He is going to follow up with GI soon. We will monitor.9. Encounter for screening for malignant neoplasm of prostate: We do await for results. His last PSA level was less than 1. We will monitor.Ongoing cares: He will follow up with lab results appropriately. I am going to see him again in 6 months with CMP & lipids. If he has new problems or issues sooner he will let us know. Functional Status Description No Information Available Mental Status Description No Information Available Referrals Refer to Reason for Referral Status Appt Date Brandon Shin MD CONSULT FOR LT SHOULDER PAIN Closed 01/28/2021 [facility] [place] [address] [phone]
--- OUTSIDE RECORDS SUMMARY | 2021-08-03 16:02 | CCD | Continuity of Care Document ---
Author Author Arik TEE PA Organization Unknown Address [address] [place] [address] [address] [place] [address] Phone [phone] Care Team Providers Care Service Team Leader Name Role Phone Neo Sánchez M.D. AUTM [phone] Problems Active Problems Provider Date Hypertrophy of breast Morgan Almaraz JR, MD Onset: 8 Umbilical hernia Morgan Almaraz JR, MD Onset: 06/20/2018 Social History Type Date Description Comments Sex Unknown ETOH Use 1 A Day Tobacco Use Start: Unknown Denies Smoking Recreational Drug Use Denies Drug Use Allergies and adverse reactions Description No Known Drug Allergies Medications Active Medications SIG Qnty Indications Ordering Provide r Date Meclizine HCL 25mg Tablets take one tab by mouth every 8 hours as needed Unknown Omeprazole 20mg Capsules DR 1 by mouth every day as needed Unknown Tamsulosin HCL 0.4mg Capsules Take One Capsule By Mouth Every Day Unknown Duloxetine HCL 30mg Caps DR Part Take One Capsule By Mouth Every Day Unknown Cefuroxime Axetil 500mg Tablets twice a day for uri started 06/23/21 20tabs Elli Farias, R.P.A Isabel-Ariana History Medications Hydrocodone Bitartrate/Acetaminophen 5-325mg Tablets 1-2 tabs by mouth every 6 hours as needed pain 14tabs Morgan Almaraz JR, MD 07/14/2021 - 07/29/2021 Immunizations Description No Information Available Vital Signs Date Vital Result Comment 07/29/2021 10:15am BP Systolic 131 mmHg BP Diastolic 87 mmHg Body Temperature 98.2 F Height 75 inches 6'3" Weight 285.25 lb BMI (Body Mass Index) 35.6 kg/m2 [place] Body Weight 196 lb Weight 129.389 kg BSA (Body Surface Area) 2.55 m2 06/24/2021 10:20am BP Systolic 138 mmHg BP Diastolic 80 mmHg Body Temperature 98.2 F Height 75 inches 6'3" Weight 284.00 lb BMI (Body Mass Index) 35.5 kg/m2 [facility] Body Weight 196 lb Weight 128.822 kg BSA (Body Surface Area) 2.55 m2 Results Test Acquired Date Facility Test Result H/L Range Note Laboratory test finding 07/14/2021 [facility] Main Lab [address] [place], [place] [id number] [phone] Pathology Request For Service (SEE NOTE) 1 1 FINAL DIAGNOSIS Submitted as "hernia sac and contents": Mesothelial-lined fibroadipose tissue, consistent with hernia sac. 07/16/2021 - 1017 CLINICAL DIAGNOSIS Umbilical hernia 07/15/2021 - 1345 GROSS DIAGNOSIS Received in formalin labeled "hernia sac and contents" and consists of fibroadipose tissue measuring 7 x 4 x 3 cm. The specimen is grossly unremarkable. The specimen is serially sectioned to reveal benign fibroadipose tissue. Automobile Tester sections submitted in one. -OA 07/15/20211345 Signed ERROL KEITH MD 07/16/2021 1018 Procedures Date Code Description Status 06/24/2021 89116 Office/Outpatient Established Mo d MDM 30-39 Min Completed Medical Devices Description No Information Available Encounters Type Date Location Provider Dx Diagnosis Office Visit 06/24/2021 10:00a [facility] Morgan parra JR, MD Z86.010 Personal history of colonic polyps K21.00 Gastro-esophageal reflux dis with esophagitis, without bleed K42.9 Umbilical hernia without obs truction or gangrene Assessments Date Code Description Provider 06/24/2021 Z86.010 Personal history of colonic poly ps Morgan Almaraz JR, MD 06/24/2021 K21.00 Gastro-esophageal re flux disease with esophagitis, without bleeding Morgan Almaraz JR, MD 06/24/2021 K42.9 Umbilical hernia without obstruc tion or gangrene Morgan Almaraz JR, MD Plan of Treatment No Information Available Functional Status Description No Information Available Mental Status Description No Information Available Referrals Description No Information Available
--- OUTSIDE RECORDS SUMMARY | 2021-08-03 16:02 | CCD | Continuity of Care Document ---
Author Author Arik ALMARAZ MD Organization Unknown Address [address] [place] [address] Phone [phone] Care Team Providers Care Import Coordination And Production Head Name Role Phone Neo Sánchez M.D. [facility] [phone] Problems Active Problems Provider Date Hypertrophy of [...] SIG Qnty Indications Ordering Provide r Date Hydrocodone Bitartrate/Acetaminophen 5-325mg Tablets 1-2 tabs by mouth every 6 hours as needed pain 14tabs Morgan Almaraz JR, MD 07/14/2021 Meclizine HCL 25mg Tablets take one tab [...] day for uri started 06/23/21 20tabs Elli Farias R.PIsabelA Alia Immunizations Description No Information Available Vital Signs Date Vital Result Comment 06/24/2021 10:20am BP Systolic 138 mmHg BP Diastolic 80 mmHg Body Temperature 98.2 F Height 75 inches 6'3" Weight 284.00 lb BMI (Body Mass Index) 35.5 kg/m2 [place] Body Weight 196 lb Weight 128.822 kg BSA (Body Surface Area) 2.55 m2 02/15/2019 11:31am BP Systolic 116 mmHg LA BP Diastolic 74 mmHg LA Heart Rate 80 /min Height 75 inches 6'3" Weight 291.00 lb BMI (Body Mass Index) 36.4 kg/m2 [place] Body Weight 196 lb Weight 131.998 kg BSA (Body Surface Area) 2.57 m2 Results Test Acquired Date Facility Test Result H/L Range Note Laboratory test finding 07/14/2021 [facility] [address] [place] [address] [phone] Pathology Request For Service (SEE NOTE) 1 1 FINAL DIAGNOSIS Submitted as "hernia sac and contents": Mesothelial-lined fibroadipose tissue, consistent with hernia sac. 07/16/2021 - 1017 CLINICAL DIAGNOSIS Umbilical hernia 07/15/2021 - 1346 GROSS DIAGNOSIS Received in formalin labeled "hernia sac and contents" and consists of fibroadipose tissue measuring 7 x 4 x 3 cm. The specimen is grossly unremarkable. The specimen is serially sectioned to reveal benign fibroadipose tissue. Mantel Craftsman sections submitted in one. -OA 07/15/2021 - 1346 Signed ERROL KEITH MD 07/16/2021 1018 Procedures Date Code Description Status 06/24/2021 06149 Office/Outpatient Established Mo d MDM 30-39 Min Completed Medical Devices Description No Information Available Encounters Type Date Location Provider Dx Diagnosis Office Visit 06/24/2021 10:00a [facility] Morgan parra JR, MD Z86.010 [...] Morgan Almaraz JR, MD Plan of Treatment Future Appointment(s):* 07/29/2021 10:45 am - FELI Dawson at [facility] 06/24/2021 - Morgan Almaraz JR, MD* Z86.010 Personal history of colonic polyps* Comments:* Patient has had a personal history of colonic polyps and at this point the recommendation is to proceed with a repeat colonoscopy risks as well as benefits have been discussed with him at length those including but not limited to bleeding infection damage to bowel including perforation and possibly anesthetic complications. Patient understands as well that small lesions/polyps can be missed with increased frequency and is much dependent on colonic prep. The patient agrees to proceed with colonoscopy as recommended next year * K21.00 Gastro-esophageal reflux disease with esophagitis, without bleeding* Comments:* Patient has some reflux symptoms and it seems relatively well controlled on proton pump inhibitors but his symptoms are very very mild and his inflammatory changes are much more significant than his symptoms he really has been only taking proton pump inhibitors once every few weeks at most and now we will just have him continue on this until we proceed with his upper endoscopy next year. * K42.9 Umbilical hernia without obstruction or gangrene* Comments:* Patient has a symptomatic umbilical hernia and we've discussed multiple operative interventions for this hernia including open versus laparoscopic versus roboti c-assisted. We discussed the risks as well as benefits associated with each. Those including but not limited to infection bleeding damage to surrounding structures as well as recurrence of the hernias. Given that this hernia has become more symptomatic/enlarging in size over time I do recommend that the patient proceed with operative intervention for this. We've discussed open operative intervention and the patient would like to proceed with open umbilical hernia repair as soon as possible. Functional Status Description No Information Available Mental Status Description No Information Available Referrals Description No Information Available
--- OUTSIDE RECORDS SUMMARY | 2021-08-03 16:02 | CCD | Continuity of Care Document ---
Author Author Arik ALMARAZ MD Organization Unknown Address [address] [address] Phone [phone] Care Team Providers Care Security Compliance Specialist Name Role Phone Neo Sánchez M.D. [facility] [phone] Problems Active Problems Provider Date Hypertrophy of breast Morgan Radha Almaraz JR, MD Onset: 8 Umbilical hernia Morgan Almaraz JR, MD Onset: 06/20/2018 Social History Type Date Description Comments Sex Unknown ETOH Use 1 A Day Tobacco Use Start: Unknown Denies Smoking Recreational Drug Use Denies Drug Use Allergies, Adverse Reactions, Alerts Description No Known Drug Allergies Medications Active [...] twice a day for uri started 06/23/21 20taElli Ramírez RIsabelPIsabelA Alia Immunizations Description No Information Available Vital Signs Date Vital Result Comment 06/24/2021 10:20am BP Systolic 138 mmHg BP Diastolic 80 mmHg Body Temperature 98.2 F Height 75 inches 6'3" Weight 284.00 lb BMI (Body Mass Index) 35.5 kg/m2 [place] Body Weight 196 lb Weight 128.822 kg BSA (Body Surface Area) 2.55 m2 02/15/2019 11:31am BP Systolic 116 mmHg LA BP Diastolic 74 mmHg LA Heart Rate 80 /min Height 75 inches 6'3" Weight 291.00 lb BMI (Body Mass Index) 36.4 kg/m2 [place] Body Weight 196 lb Weight 131.998 kg BSA (Body Surface Area) 2.57 m2 Results Description No Information Available Procedures Date Code Description Status 06/24/2021 51085 Office/Outpatient Established Mo d MDM 30-39 Min Completed Medical Devices Description No Information Available Encounters Type Date Location Provider Dx Diagnosis Office Visit 06/24/2021 10:00a [facility] Morgan parra JR, MD Z86.010 Personal [...] 07/29/2021 10:45 am - FELI Dawson at [facility] * 07/14/2021 1:00 pm - Morgan Almaraz JR, MD at [facility] 06/24/2021 - Morgan Almaraz JR, MD* Z86.010 [...]
--- OUTSIDE RECORDS SUMMARY | 2021-08-03 16:03 | CCD | Continuity of Care Document ---
Author Author Arik MUNOZ M.D. Organization Unknown Address [address] [facility] [address] [place] [address] Phone [phone] Care Team Providers Care Assistant Credit Manager Name Role Phone Neo Munoz MD AUTM [phone] Miguel Carty MD AUTM [phone] Jesse Euceda DPM AUTM [phone] Arik Foss OD AUTM [phone] Brandon Shin MD AUTM [phone] Vick Monique M.D. [facility] [phone] Problems Active Problems Provider Date Primary "polygenic" combined hyperlipidemia Onset: Benign essential hypertension Onset: Osteoarthritis Onset: Gastroesophageal reflux disease Onset: 0 Social History Type Date Description Comments Sex Unknown ETOH Use consumes 3-4 beers per week Tobacco Use Start: Unknown Patient has never smoked Allergies, Adverse Reactions, Alerts Description No Known Drug Allergies Medications Active Medications SIG Qnty Indications Ordering Provide r Date Cymbalta 30mg Caps DR Part by mouth daily 30caps Neo Munoz M.D. 10/31/2018 Flomax 0.4mg Capsules 1 by mouth every day 30caps Neo Munoz M.D. 10/31/2018 Gabapentin 300mg Capsules 1 [...] Vaccine Lot # U-Flu Given 06/23/2020 Influenza,Unspecified 39826 Given 08/21/2018 Influenza Virus Vaccine, Quadrivalent (Cciiv4), Derived From Cell [id number] Q2037 Given 08/09/2016 Fluvirin Virus Vaccine 45665 01 42065 Given 08/09/2014 Influenza Virus Vaccine 40369 Given 01/17/2014 Pneumovax 23 77732 Given 07/17/2013 Adacel- Tetanus Diphtheria P ertussis (Age64 & Under) 20374 Given 07/17/2013 Influenza Virus Vaccine 48926 Given 09/05/2012 Influenza Virus Vaccine 86760 Given 11/15/2011 Influenza Virus Vaccine 65562 Given 10/10/1998 Adacel- Tetanus Diphtheria P ertussis (Age64 & Under) 92425 Refused 02/16/2021 Prevnar 13 35004 Refused 01/17/2014 Zoster Vaccine 35761 Refused 10/12/2010 Influenza Virus Vaccine Vital Signs [...] Result H/L Range Note Laboratory test finding 06/09/2021 [facility] [employer] sharon bedolla Internet Webmaster: RENETTA Burch [address] [phone] PSA <pending> Laboratory test finding 06/09/2021 [facility] [employer] sharon bedolla Internet Webmaster: RENETTA Burch [address] [phone] TSH <pending> PT & Aptt 04/15/2021 [facility] nter [address] [place], [place] [id number] [phone] Prothrombin Time 13.0 seconds Normal 12.5-14.3 Inr 0.96 Normal 1 Partial Thromboplastin Time 26.6 seconds Normal 24.2-38.5 Complete Blood Count 04/15/2021 [facility] [employer] sharon sainz Internet Webmaster: [place] [address] [phone] WBC 4.7 x10*3/UL 4.1 - 10.9 RBC [...] 2.0 - 7.8 Comprehensive Chem Profile 04/15/2021 [facility] sharon Starr Internet Webmaster: [place] [address] [phone] Glucose 107 mg/dL High 74 - 99 2 BUN 16 mg/dL 7 - 18 Creatinine [...] mL/min >60 GFR >= 60 mL/min >60 3 Comprehensive Chem Profile 02/13/2021 [facility], Internet Webmaster: Dr Schuyler [place], [place] [id number] [phone] Glucose 106 mg/dL High 74 - 99 4 BUN 16 mg/dL 7 - 18 Creatinine 1.0 mg/dL 0.6 - 1.3 Sodium 142 mEq/L 136 - 145 Potassium 4.1 mEq/L 3.5 - 5.1 Chloride 105 mEq/L 98 - 107 Carbon Dioxide 29 mEq/L 21 - 32 Calcium 8.5 mg/dL 8.5 - 10.1 5 Alk. Phosphatase 146 mg/dL High 46 - 116 Total Bilirubin 0.6 mg/dL 0.2 - 1.0 Ast (Sgot) 37 U/L 15 - 37 Alt (SGPT) 64 U/L 12 - 78 Albumin 3.9 g/dL 3.4 - 5.0 Total Protein 6.9 g/dL 6.4 - 8.2 A/G Ratio 1.30 CALC 1.00 - 1.90 GFR >= 60 mL/min >60 GFR >= 60 mL/min >60 6 Lipid Profile 02/13/2021 [facility] , Internet Webmaster: Dr Schuyler [place], [place] [id number] [phone] Cholesterol 182 mg/dL 131 - 200 Triglycerides 93 mg/dL 30 - 150 HDL Cholesterol 52 mg/dL 35 - 60 LDL (Calculated) 111 CALC 50 - 159 1 THERAPUTIC HUMAN INR VALUES INDICATIONS NORMAL RANGES PROPHYLAXIS/TREATMENT OF: VENOUS THROMBOSIS 2.0-3.0 PULMONARY EMBOLISM 2.0-3.0 PREVENTION OF SYSTEMIC EMBOLISM FROM: TISSUE HEART VALVES 2.0-3.0 ACUTE MYOCARDIAL INFARCTION 2.0-3.0 VALVULAR HEART DISEASE 2.0-3.0 ATRIAL FIBRILLATION 2.0-3.0 MECHANICAL VALVES(HIGH RISK) 2.5-3.5 RECURRENT MYOCARDIAL INFARCTION 2.5-3.5 2 100-125 mg/dL PRE-DIABET ES/FASTING >126 mg/dL DIABETES/FASTING 3 CHRONIC KIDNEY DISEASE STAGI NG PER NKF STAGE I & II GFR >= 60 NORMAL TO MILDLY DECREASED STAGE III GFR 30-59 MODERATELY DECREASED STAGE IV GFR 15-29 SEVERELY DECREASED STAGE V GFR <15 VERY LITTLE GFR LEFT ESRD GFR <15 ON COMPUTER NETWORK AND SYSTEMS ENGINEER 4 100-125 mg/dL PRE-DIABET ES/FASTING >126 mg/dL DIABETES/FASTING 5 NOTE: CALCIUM,ALK PHOS VERIFIED 6 CHRONIC KIDNEY DISEASE STAGI NG PER NKF STAGE I & II GFR >= 60 NORMAL TO MILDLY DECREASED STAGE III GFR 30-59 MODERATELY DECREASED STAGE IV GFR 15-29 SEVERELY DECREASED STAGE V GFR <15 VERY LITTLE GFR LEFT ESRD GFR <15 ON COMPUTER NETWORK AND SYSTEMS ENGINEER Procedures Date Code Description Status 05/06/2021 54841 Chronic Care MGMT 20 Mins Clinical Staff Time Per Calendar Month Completed 04/15/2021 83381 Office/Outpatient Established Mo d MDM 30-39 Min Completed 04/15/2021 67367 EKG/Interpretation & Report Comp leted 04/07/2021 33426 Chronic Care MGMT 20 Mins Clinical Staff Time Per Calendar Month Completed 02/23/2021 53512 Chronic Care MGMT 20 Mins Clinical Staff Time Per Calendar Month Completed 02/16/2021 91377 Office/Outpatient Established Mo d MDM 30-39 Min Completed 01/26/2021 80820 Complex Chronic Care MGMT Servic e Ea Addl 30 Min Completed 01/26/2021 63210 Complex Chronic Care Management SVC 1St 60 Min Completed 01/23/2021 64626 Office/Outpatient Established SF MDM 10-19 Min Completed 2020 81753 Chronic Care MGMT 20 Mins Clinical Staff Time Per Calendar Month Completed 2020 68973 Chronic Care Management Services Ea Addl 20 Min Completed 03/08/2019 82364804 Colonoscopy Completed 02/07/2014 18557445 Colonoscopy Completed Medical Devices Description No Information Available Encounters Type Date Location Provider Dx Diagnosis Office Visit 04/15/2021 10:00a [facility] M[facility] Z01.818 Encounter for other preprocedural examin ation M54.5 Low back pain E78.5 Hyperlipidemia, unspecified K21.9 Gastro-esophageal reflux dis ease without esophagitis B00.89 Other herpesviral infection N40.0 Benign prostatic hyperplasia without lower urinry tract symp F52.21 Male erectile disorder M19.90 Unspecified osteoarthritis, unspecified site Z96.652 Presence of left artificial knee joint Z96.651 Presence of right artificial knee joint Office Visit 02/16/2021 9:30a [facility] E78.5 Hyperlipidemia, unspecified [...] Activity, bike riding Office Visit 01/23/2021 1:40p [facility] PA M25.512 Pain in left shoulder Z48.02 [...] Hereditary and idiopathic neurop athy, unspecified Neo Munoz M.D. 06/09/2021 Z86.010 Personal history of colonic poly ps Neo Munoz M.D. 06/09/2021 Z12.5 Encounter for screening for sagrario gnant neoplasm of prostate Neo Munoz M.D. 05/06/2021 E78.00 Pure hypercholesterolemia, [...] 02/16/2021 G60.9 Hereditary and idiopathic neurop athy, unspecified Neo Munoz M.D. 02/16/2021 R13.10 Dysphagia, neftaliified [...] for removal of sutures FELI Coronel JR 2020 K21.9 Gastro-esophageal reflux disease without esophagitis Neo Munoz M.D. 2020 N40.0 Benign prostatic hyp erplasia without lower urinary tract symptoms Neo Munoz M.D. 2020 E78.5 Hyperlipidemia, unspecified Susana Munoz M.D. 2020 I10 Essential (primary) hypertension Neo Munoz M.D. Plan of Treatment Future Appointment(s):* 12/10/2021 8:30 am - Neo Munoz M.D. at [facility] 06/09/2021 - Neo Munoz M.D.* E78.00 [...] malignant neoplasm of prostate * * Comments:* 6 months with CMP & lipids. Functional Status Description No Information Available Mental Status Description No Information Available Referrals Refer to Reason for Referral Status Appt Date Brandon Shin MD CONSULT FOR LT SHOULDER PAIN Closed 01/28/2021 [facility] [address] [place] [address] [phone]
--- OUTSIDE RECORDS SUMMARY | 2021-08-03 16:03 | CCD | Continuity of Care Document ---
Author Author Arik MUNOZ M.D. Organization Unknown Address [address] [facility] [address] [place] [address] Phone [phone] Care Team Providers Care Lambskin Trimmer Name Role Phone Neo Munoz MD AUTM [phone] Miguel Carty MD AUTM [phone] Jesse Euceda DPM AUTM [phone] Arik Foss OD AUTM [phone] Brandon Shin MD AUTM [phone] Vick Monique M.D. [facility] [phone] Problems Active Problems Provider Date Primary "polygenic" [...] Vaccine Lot # U-Flu Given 06/23/2020 Influenza,Unspecified 36090 Given 08/21/2018 Influenza Virus Vaccine, Quadrivalent (Cciiv4), Derived From Cell [id number] Q2037 Given 08/09/2016 Fluvirin Virus Vaccine 92054 01 55154 Given 08/09/2014 Influenza Virus Vaccine 18985 Given 01/17/2014 Pneumovax 23 44123 Given 07/17/2013 Adacel- Tetanus Diphtheria P ertussis (Age64 & Under) 59027 Given 07/17/2013 Influenza Virus Vaccine 10548 Given 09/05/2012 Influenza Virus Vaccine 85946 Given 11/15/2011 Influenza Virus Vaccine 66685 Given 10/10/1998 Adacel- Tetanus Diphtheria P ertussis (Age64 & Under) 63052 Refused 02/16/2021 Prevnar 13 24894 Refused 01/17/2014 Zoster Vaccine 32410 Refused 10/12/2010 Influenza Virus Vaccine Vital Signs [...] H/L Range Note Laboratory test finding 06/09/2021 [facility] [employer] sharon bedolla Food Service Kitchen Supervisor: RENETTA Burch [address] [phone] PSA <pending> Laboratory test finding 06/09/2021 [facility] [employer] sharon bedolla Food Service Kitchen Supervisor: RENETTA Burch [address] [phone] TSH <pending> PT & Aptt 04/15/2021 [facility] nter [address] [place], [place] [id number] [phone] Prothrombin Time 13.0 seconds Normal 12.5-14.3 Inr 0.96 Normal 1 Partial Thromboplastin Time 26.6 seconds Normal 24.2-38.5 Complete Blood Count 04/15/2021 [facility] [employer] Puddler sharon sainz Food Service Kitchen Supervisor: [place] [address] [phone] WBC 4.7 x10*3/UL 4.1 - 10.9 RBC [...] 2.0 - 7.8 Comprehensive Chem Profile 04/15/2021 [facility] sharon Starr [employer] Kitchen Supervisor: [place] [address] [phone] Glucose 107 mg/dL High 74 - 99 [...] mL/min >60 3 Comprehensive Chem Profile 02/13/2021 [facility], Food Service Kitchen Supervisor: Dr Schuyler [place], [place] [id number] [phone] Glucose 106 mg/dL High 74 - 99 [...] 60 mL/min >60 6 Lipid Profile 02/13/2021 [facility] , Food Service Kitchen Supervisor: Dr Schuyler Burns [place], [place] [address] [phone] Cholesterol 182 mg/dL 131 - 200 Triglycerides [...] LITTLE GFR LEFT ESRD GFR <15 ON FAMILY SOCIOLOGIST 4 100-125 mg/dL PRE-DIABET ES/FASTING >126 mg/dL DIABETES/FASTING 5 NOTE: CALCIUM,ALK PHOS VERIFIED 6 CHRONIC KIDNEY DISEASE STAGI NG PER NKF STAGE I & II GFR >= 60 NORMAL TO MILDLY DECREASED STAGE III GFR 30-59 MODERATELY DECREASED STAGE IV GFR 15-29 SEVERELY DECREASED STAGE V GFR <15 VERY LITTLE GFR LEFT ESRD GFR <15 ON FAMILY SOCIOLOGIST Procedures Date Code Description Status 05/06/2021 17916 Chronic Care MGMT 20 Mins Clinical Staff Time Per Calendar Month Completed 04/15/2021 21780 Office/Outpatient Established Mo d MDM 30-39 Min Completed 04/15/2021 64870 EKG/Interpretation & Report Comp leted 04/07/2021 26725 Chronic Care MGMT 20 Mins Clinical Staff Time Per Calendar Month Completed 02/23/2021 66909 Chronic Care MGMT 20 Mins Clinical Staff Time Per Calendar Month Completed 02/16/2021 51901 Office/Outpatient Established Mo d MDM 30-39 Min Completed 01/26/2021 12922 Complex Chronic Care MGMT Servic e Ea Addl 30 Min Completed 01/26/2021 67698 Complex Chronic Care Management SVC 1St 60 Min Completed 01/23/2021 34660 Office/Outpatient Established SF MDM 10-19 Min Completed 2020 88407 Chronic Care MGMT 20 Mins Clinical Staff Time Per Calendar Month Completed 2020 25026 Chronic Care Management Services Ea Addl 20 Min Completed 03/08/2019 61942750 Colonoscopy Completed 02/07/2014 27493421 Colonoscopy Completed Medical Devices Description No Information [...] artificial knee joint Office Visit 02/16/2021 9:30a [facility] E78.5 Hyperlipidemia, unspecified [...] Activity, bike riding Office Visit 01/23/2021 1:40p [facility] PA M25.512 Pain [...] 02/16/2021 W19.xxxA Unspecified fall, initial encoun ter Noe Munoz M.D. 02/16/2021 Y93.55 Activity, bike riding [...] 01/23/2021 M25.512 Pain in left shoulder FELI uJstin JR 01/23/2021 Z48.02 Encounter for removal of sutures FELI Coronel JR 2020 K21.9 Gastro-esophageal reflux disease without esophagitis Neo Munoz M.D. 2020 N40.0 Benign prostatic hyp erplasia without lower urinary tract symptoms Neo Munoz M.D. 2020 E78.5 Hyperlipidemia, unspecified Susana Munoz M.D. 2020 I10 Essential (primary) hypertension Neo Munoz M.D. Plan of Treatment Future Appointment(s):* 12/10/2021 8:30 am - Neo Munoz M.D. at [facility] 06/09/2021 - Neo Munoz M.D.* [...] CONSULT FOR LT SHOULDER PAIN Closed 01/28/2021 [facility] [address] [place] [address] [phone]
--- OUTSIDE RECORDS SUMMARY | 2021-08-03 16:03 | CCD | Continuity of Care Document ---
Author Author Arik SÁNCHEZ M.D. Organization Unknown Address [address] [facility] [address] [place] [address] Phone [phone] Care Team Providers Care Mud Jack Nozzle Worker Name Role Phone Neo Sánchez MD AUTM [phone] Miguel Carty MD AUTM [phone] Jesse Euceda DPM AUTM [phone] Arik Foss OD AUTM [phone] Brandon Shin MD AUTM [phone] Vick Monique M.D. AUTM [phone] Problems Active Problems Provider Date Primary "polygenic" [...] DR Part by mouth daily 30caps Neo Sánchez M.D. 10/31/2018 Flomax 0.4mg Capsules 1 by mouth every day 30caps Neo Sánchez M.D. 10/31/2018 Gabapentin 300mg Capsules 1 by mouth three times a day 540caps K21.9 Neo Sánchez M.D. 11/15/2017 Medications Administered in Office Medication SIG Qnty Indications Ordering Provider Date Covid-19 vaccine, Unspecified Inj ection Unknown 11/30/2020 Covid-19 vaccine, Unspecified Inj ection Unknown 11/11/2020 Administration Of Flu Vaccine Inj ection Neo Sánchez M.D. 08/21/2018 Administration Of Flu Vaccine Inj ection Neo Sánchez M.D. 08/09/2016 Immunizations CPT Code Status Date Vaccine Lot # U-Flu Given 06/23/2020 Influenza,Unspecified 75665 Given 08/21/2018 Influenza Virus Vaccine, Quadrivalent (Cciiv4), Derived From Cell [id number] Q2037 Given 08/09/2016 Fluvirin Virus Vaccine 49057 01 46897 Given 08/09/2014 Influenza Virus Vaccine 12875 Given 01/17/2014 Pneumovax 23 44512 Given 07/17/2013 Adacel- Tetanus Diphtheria P ertussis (Age64 & Under) 87156 Given 07/17/2013 Influenza Virus Vaccine 12287 Given 09/05/2012 Influenza Virus Vaccine 12906 Given 11/15/2011 Influenza Virus Vaccine 44534 Given 10/10/1998 Adacel- Tetanus Diphtheria P ertussis (Age64 & Under) 40069 Refused 02/16/2021 Prevnar 13 61767 Refused 01/17/2014 Zoster Vaccine 66967 Refused 10/12/2010 Influenza Virus Vaccine Vital Signs [...] H/L Range Note Laboratory test finding 06/09/2021 [facility] [employer] sharon bedolla Fire Support Specialist: RENETTA Burch [id number] [phone] PSA 0.46 ng/mL <4.00 1 Complete Blood Count 06/09/2021 sharon Estrella Fire Support Specialist: RENETTA Burch [id number] [phone] WBC 5.0 x10*3/UL 4.1 - 10.9 RBC [...] 2.0 - 7.8 Comprehensive Chem Profile 06/09/2021 Boulevard[facility] Peña Fire Support Specialist: [place] [address] [phone] Glucose 78 mg/dL 74 - 99 2 BUN 11 mg/dL 7 - 18 Creatinine [...] >60 GFR >= 60 mL/min >60 3 Laboratory test finding 06/09/2021 [facility] sharon Dooley Fire Support Specialist: [place] [address] [phone] Thyroid Stimulating Hormone 1.17 uIU/mL 0.3 6 - 3.74 PT & Aptt 04/15/2021 [facility] nter [address] [place] [address] [phone] Prothrombin Time 13.0 seconds Normal 12.5-14.3 Inr 0.96 Normal 4 Partial Thromboplastin Time 26.6 seconds Normal 24.2-38.5 Complete Blood Count 04/15/2021 [facility] alistair pc Fire Support Specialist: [place] [address] [phone] WBC 4.7 x10*3/UL 4.1 - 10.9 RBC [...] 2.0 - 7.8 Comprehensive Chem Profile 04/15/2021 [facility] sharon Starr Fire Support Specialist: [place] [address] [phone] Glucose 107 mg/dL High 74 - 99 5 BUN 16 mg/dL 7 - 18 Creatinine [...] >60 GFR >= 60 mL/min >60 6 Comprehensive Chem Profile 02/13/2021 [facility], Fire Support Specialist: [place] [address] [phone] Glucose 106 mg/dL High 74 - 99 7 BUN 16 mg/dL 7 - 18 Creatinine 1.0 mg/dL 0.6 - 1.3 Sodium 142 mEq/L 136 - 145 Potassium 4.1 mEq/L 3.5 - 5.1 Chloride 105 mEq/L 98 - 107 Carbon Dioxide 29 mEq/L 21 - 32 Calcium 8.5 mg/dL 8.5 - 10.1 8 Alk. Phosphatase 146 mg/dL High 46 - 116 Total Bilirubin 0.6 mg/dL 0.2 - 1.0 Ast (Sgot) 37 U/L 15 - 37 Alt (SGPT) 64 U/L 12 - 78 Albumin 3.9 g/dL 3.4 - 5.0 Total Protein 6.9 g/dL 6.4 - 8.2 A/G Ratio 1.30 CALC 1.00 - 1.90 GFR >= 60 mL/min >60 GFR >= 60 mL/min >60 9 Lipid Profile 02/13/2021 [facility] , Fire Support Specialist: [place] [address] [phone] Cholesterol 182 mg/dL 131 - 200 Triglycerides 93 mg/dL 30 - 150 HDL Cholesterol 52 mg/dL 35 - 60 LDL (Calculated) 111 CALC 50 - 159 1 This assay was performed on the [employer] [place] [employer] EXL using the B- Galactosidase/CPRG methodology and should not be compared interchangeably with other methods. The PSA should not be used alone as a screening test for the presence or absence of malignant disease. 2 100-125 mg/dL PRE-DIABET ES/FASTING >126 mg/dL DIABETES/FASTING 3 CHRONIC KIDNEY DISEASE STAGI NG PER NKF STAGE I & II GFR >= 60 NORMAL TO MILDLY DECREASED STAGE III GFR 30-59 MODERATELY DECREASED STAGE IV GFR 15-29 SEVERELY DECREASED STAGE V GFR <15 VERY LITTLE GFR LEFT ESRD GFR <15 ON BIOMETRICS SPECIALIST 4 THERAPUTIC HUMAN INR VALUES INDICATIONS NORMAL RANGES PROPHYLAXIS/TREATMENT OF: VENOUS THROMBOSIS 2.0-3.0 PULMONARY EMBOLISM 2.0-3.0 PREVENTION OF SYSTEMIC EMBOLISM FROM: TISSUE HEART VALVES 2.0-3.0 ACUTE MYOCARDIAL INFARCTION 2.0-3.0 VALVULAR HEART DISEASE 2.0-3.0 ATRIAL FIBRILLATION 2.0-3.0 MECHANICAL VALVES(HIGH RISK) 2.5-3.5 RECURRENT MYOCARDIAL INFARCTION 2.5-3.5 5 100-125 mg/dL PRE-DIABET ES/FASTING >126 mg/dL DIABETES/FASTING 6 CHRONIC KIDNEY DISEASE STAGI NG PER NKF STAGE I & II GFR >= 60 NORMAL TO MILDLY DECREASED STAGE III GFR 30-59 MODERATELY DECREASED STAGE IV GFR 15-29 SEVERELY DECREASED STAGE V GFR <15 VERY LITTLE GFR LEFT ESRD GFR <15 ON BIOMETRICS SPECIALIST 7 100-125 mg/dL PRE-DIABET ES/FASTING >126 mg/dL DIABETES/FASTING 8 NOTE: CALCIUM,ALK PHOS VERIFIED 9 CHRONIC KIDNEY DISEASE STAGI NG PER NKF STAGE I & II GFR >= 60 NORMAL TO MILDLY DECREASED STAGE III GFR 30-59 MODERATELY DECREASED STAGE IV GFR 15-29 SEVERELY DECREASED STAGE V GFR <15 VERY LITTLE GFR LEFT ESRD GFR <15 ON BIOMETRICS SPECIALIST Procedures Date Code Description Status 06/09/2021 58130 Office/Outpatient Established Mo d MDM 30-39 Min Completed 05/06/2021 64353 Chronic Care MGMT 20 Mins Clinical Staff Time Per Calendar Month Completed 04/15/2021 87578 Office/Outpatient Established Mo d MDM 30-39 Min Completed 04/15/2021 41499 EKG/Interpretation & Report Comp leted 04/07/2021 61265 Chronic Care MGMT 20 Mins Clinical Staff Time Per Calendar Month Completed 02/23/2021 46330 Chronic Care MGMT 20 Mins Clinical Staff Time Per Calendar Month Completed 02/16/2021 34277 Office/Outpatient Established Mo d MDM 30-39 Min Completed 01/26/2021 52503 Complex Chronic Care MGMT Servic e Ea Addl 30 Min Completed 01/26/2021 00211 Complex Chronic Care Management SVC 1St 60 Min Completed 01/23/2021 29760 Office/Outpatient Established SF MDM 10-19 Min Completed 2020 87144 Chronic Care MGMT 20 Mins Clinical Staff Time Per Calendar Month Completed 2020 00265 Chronic Care Management Services Ea Addl 20 Min Completed 03/08/2019 11760469 Colonoscopy Completed 02/07/2014 [id number] Colonoscopy Completed Medical Devices Description No Information Available Encounters Type Date Location Provider Dx Diagnosis Office Visit 06/09/2021 3:00p [facility] Intern[facility] bedolla M.D. E78.00 Pure hypercholesterolemia, unspecified K21.9 Gastro-esophageal reflux dis ease without esophagitis M54.5 Low back pain B00.89 Other herpesviral infection N40.0 Benign prostatic hyperplasia without lower urinry tract symp Z96.653 Presence of artificial knee joint, bilateral G60.9 Hereditary and idiopathic ne uropathy, unspecified Z86.010 Personal history of colonic polyps Z12.5 Encounter for screening for malignant neoplasm of prostate Office Visit 04/15/2021 10:00a [facility] Heath Gross M.D. Z01.818 Encounter for other preprocedural examin ation M54.5 Low back pain E78.5 Hyperlipidemia, unspecified K21.9 Gastro-esophageal reflux dis ease without esophagitis B00.89 Other herpesviral infection N40.0 Benign prostatic hyperplasia without lower urinry tract symp F52.21 Male erectile disorder M19.90 Unspecified osteoarthritis, unspecified site Z96.652 Presence of left artificial knee joint Z96.651 Presence of right artificial knee joint Office Visit 02/16/2021 9:30a [facility] Heath Gross M.D. E78.5 Hyperlipidemia, unspecified I10 Essential (primary) [...] Activity, bike riding Office Visit 01/23/2021 1:40p [facility] PIsabelCIsabel Cervantes JR, [place] M25.512 Pain in left shoulder Z48.02 Encounter for removal of sut ures Assessments Date Code Description Provider 06/09/2021 E78.00 Pure hypercholesterolemia, unspe cified Neo Sánchez M.D. 06/09/2021 K21.9 Gastro-esophageal reflux disease without esophagitis Neo Sánchez M.D. 06/09/2021 M54.5 Low back pain Neo Sánchez M.D. 06/09/2021 B00.89 Other herpesviral infection Susana Sánchez M.D. 06/09/2021 N40.0 Benign prostatic hyp erplasia without lower urinary tract symptoms Neo Sánchez M.D. 06/09/2021 Z96.653 Presence of artificial knee join t, bilateral Neo Sánchez M.D. 06/09/2021 G60.9 Hereditary and idiopathic neurop athy, unspecified Neo Sánchez M.D. 06/09/2021 Z86.010 Personal history of colonic poly ps Noe Sánchez M.D. 06/09/2021 Z12.5 Encounter for screening for sagrario gnant neoplasm of prostate Neo Sánchez M.D. 05/06/2021 E78.00 Pure hypercholesterolemia, unspe cified Neo Sánchez M.D. 05/06/2021 I10 Essential (primary) hypertension Neo Sánchez M.D. 05/06/2021 K21.9 Gastro-esophageal reflux disease without esophagitis Neo Sánchez M.D. 04/15/2021 Z01.818 Encounter for other preprocedura l examination Neo Sánchez M.D. 04/15/2021 M54.5 Low back pain Neo Sánchez M.D. 04/15/2021 E78.5 Hyperlipidemia, unspecified Susana Sánchez M.D. 04/15/2021 K21.9 Gastro-esophageal reflux disease without esophagitis Neo Sánchez M.D. 04/15/2021 B00.89 Other herpesviral infection Susana Sánchez M.D. 04/15/2021 N40.0 Benign prostatic hyp erplasia without lower urinary tract symptoms Neo Sánchez M.D. 04/15/2021 F52.21 Male erectile disorder Neo Sánchez M.D. 04/15/2021 M19.90 Unspecified osteoarthritis, unsp ecified site Neo Sánchez M.D. 04/15/2021 Z96.652 Presence of left artificial knee joint Neo Sánchez M.D. 04/15/2021 Z96.651 Presence of right artificial kne e joint Neo Sánchez M.D. 04/07/2021 I10 Essential (primary) hypertension Neo Sánchez M.D. 04/07/2021 K21.9 Gastro-esophageal reflux disease without esophagitis Neo Sánchez M.D. 04/07/2021 E78.5 Hyperlipidemia, unspecified Susana Sánchez M.D. 02/23/2021 I10 Essential (primary) hypertension Neo Sánchez M.D. 02/23/2021 E78.5 Hyperlipidemia, unspecified Susana Sánchez M.D. 02/23/2021 K21.9 Gastro-esophageal reflux disease without esophagitis Neo Sánchez M.D. 02/16/2021 Z13.89 Encounter for screening for othe r disorder Neo Sánchez M.D. 02/16/2021 Z13.89 Encounter for screening for othe r disorder Nurse #2 02/16/2021 Z86.010 Personal history of colonic poly ps Neo Sánchez M.D. 02/16/2021 Z86.010 Personal history of colonic poly ps Nurse #2 02/16/2021 E78.5 Hyperlipidemia, unspecified Susana Sánchez M.D. 02/16/2021 I10 Essential (primary) hypertension Neo Sánchez M.D. 02/16/2021 K21.9 Gastro-esophageal reflux disease without esophagitis Neo Sánchez M.D. 02/16/2021 N40.0 Benign prostatic hyp erplasia without lower urinary tract symptoms Neo Sánchez M.D. 02/16/2021 M54.5 Low back pain Neo Sánchez M.D. 02/16/2021 B00.89 Other herpesviral infection Susana Sánchez M.D. 02/16/2021 G60.9 Hereditary and idiopathic neurop athy, unspecified Neo Sánchez M.D. 02/16/2021 R13.10 Dysphagia, unspecified Neo Sánchez M.D. 02/16/2021 M25.512 Pain in left shoulder Neo sosa M.D. 02/16/2021 S70.02xA Contusion of left hip, initial e ncounter Neo Sánchez M.D. 02/16/2021 W19.xxxA Unspecified fall, initial encoun ter Neo Sánchez M.D. 02/16/2021 Y93.55 Activity, bike riding Neo sosa M.D. 02/13/2021 K21.9 Gastro-esophageal reflux disease without esophagitis Neo Sánchez M.D. 02/13/2021 K21.9 Gastro-esophageal reflux disease without esophagitis Lab Schedule 02/13/2021 I10 Essential (primary) hypertension Neo Sánchez M.D. 02/13/2021 I10 Essential (primary) hypertension Lab Schedule 02/13/2021 E78.5 Hyperlipidemia, unspecified Susana Sánchez M.D. 02/13/2021 E78.5 Hyperlipidemia, unspecified Lab Schedule 01/26/2021 I10 Essential (primary) hypertension Neo Sánchez M.D. 01/26/2021 K21.9 Gastro-esophageal reflux disease without esophagitis Neo Sánchez M.D. 01/26/2021 E78.00 Pure hypercholesterolemia, unspe cified Neo Sánchez M.D. 01/26/2021 N40.0 Benign prostatic hyp erplasia without lower urinary tract symptoms Neo Sánchez M.D. 01/23/2021 M25.512 Pain in left shoulder FELI Justin JR 01/23/2021 Z48.02 Encounter for removal of sutures FELI Coronel JR 2020 K21.9 Gastro-esophageal reflux disease without esophagitis Neo Sánchez M.D. 2020 N40.0 Benign prostatic hyp erplasia without lower urinary tract symptoms Neo Sánchez M.D. 2020 E78.5 Hyperlipidemia, unspecified Sebastianso n Jorge Sánchez M.D. 2020 I10 Essential (primary) hypertension Neo Sánchez M.D. Plan of Treatment Future Appointment(s):* 12/10/2021 8:30 am - Neo Sánchez M.D. at [facility]. 06/09/2021 - Neo Sánchez M.D.* E78.00 Pure hypercholesterolemia, unspecified * K21.9 [...] neuropathy: Generally stable. He follows up at [facility] and will continue appropriate follow [...] Description No Information Available Referrals Refer to Dr Reason for Referral Status Appt Date Brandon Shin MD CONSULT FOR LT SHOULDER PAIN Closed 01/28/2021 [facility] [address] [place] [address] [phone]
--- OUTSIDE RECORDS SUMMARY | 2021-08-03 16:03 | CCD | Continuity of Care Document ---
Author Author Arik MUNOZ M.D. Organization Unknown Address [address] [facility] [address] [place] [address] Phone [phone] Care Team Providers Care Shoe Shanker Name Role Phone Neo Munoz MD AUTM [phone] Miguel Carty MD AUTM [phone] Jesse Euceda DPM AUTM [phone] Arik Foss OD AUTM [phone] Brandon Shin MD AUTM [phone] Vick Monique M.D. AUTM [phone] Problems Active Problems Provider Date Primary "polygenic" [...] Vaccine Lot # U-Flu Given 06/23/2020 Influenza,Unspecified 47420 Given 08/21/2018 Influenza Virus Vaccine, Quadrivalent (Cciiv4), Derived From Cell 467338 Q2037 Given 08/09/2016 Fluvirin Virus Vaccine 37825 01 81071 Given 08/09/2014 Influenza Virus Vaccine 21477 Given 01/17/2014 Pneumovax 23 86798 Given 07/17/2013 Adacel- Tetanus Diphtheria P ertussis (Age64 & Under) 18665 Given 07/17/2013 Influenza Virus Vaccine 24033 Given 09/05/2012 Influenza Virus Vaccine 62760 Given 11/15/2011 Influenza Virus Vaccine 58413 Given 10/10/1998 Adacel- Tetanus Diphtheria P ertussis (Age64 & Under) 47658 Refused 02/16/2021 Prevnar 13 27177 Refused 01/17/2014 Zoster Vaccine 07546 Refused 10/12/2010 Influenza Virus Vaccine Vital Signs [...] H/L Range Note Laboratory test finding 06/09/2021 [facility] sharon bedolla Intelligence Research Specialist: RENETTA Burch [id number] [phone] PSA <pending> Laboratory test finding 06/09/2021 [facility] sharon bedolla Intelligence Research Specialist: RENETTA Burch [address] [phone] TSH <pending> PT & Aptt 04/15/2021 [facility] nter [address] [place], [place] [address] [phone] Prothrombin Time 13.0 seconds Normal 12.5-14.3 Inr 0.96 Normal 1 Partial Thromboplastin Time 26.6 seconds Normal 24.2-38.5 Complete Blood Count 04/15/2021 [facility] [employer] sharon sainz Intelligence Research Specialist: [place] [address] [phone] WBC 4.7 x10*3/UL 4.1 - 10.9 RBC [...] 2.0 - 7.8 Comprehensive Chem Profile 04/15/2021 [facility] sharon Starr Intelligence Research Specialist: [place] [address] [phone] Glucose 107 mg/dL High 74 - 99 [...] mL/min >60 3 Comprehensive Chem Profile 02/13/2021 [facility], Intelligence Research Specialist: Dr Schuyler Burns [place], [place] [id number] [phone] Glucose 106 mg/dL High 74 - 99 [...] 60 mL/min >60 6 Lipid Profile 02/13/2021 [facility] , Intelligence Research Specialist: Dr Schuyler Burns [place], [place] [id number] [phone] Cholesterol 182 mg/dL 131 - 200 Triglycerides [...] LITTLE GFR LEFT ESRD GFR <15 ON SET UP AND CHARGER 4 100-125 mg/dL PRE-DIABET ES/FASTING >126 mg/dL DIABETES/FASTING 5 NOTE: CALCIUM,ALK PHOS VERIFIED 6 CHRONIC KIDNEY DISEASE STAGI NG PER NKF STAGE I & II GFR >= 60 NORMAL TO MILDLY DECREASED STAGE III GFR 30-59 MODERATELY DECREASED STAGE IV GFR 15-29 SEVERELY DECREASED STAGE V GFR <15 VERY LITTLE GFR LEFT ESRD GFR <15 ON SET UP AND CHARGER Procedures Date Code Description Status 05/06/2021 85386 Chronic Care MGMT 20 Mins Clinical Staff Time Per Calendar Month Completed 04/15/2021 83503 Office/Outpatient Established Mo d MDM 30-39 Min Completed 04/15/2021 66774 EKG/Interpretation & Report Comp leted 04/07/2021 11643 Chronic Care MGMT 20 Mins Clinical Staff Time Per Calendar Month Completed 02/23/2021 43176 Chronic Care MGMT 20 Mins Clinical Staff Time Per Calendar Month Completed 02/16/2021 86838 Office/Outpatient Established Mo d MDM 30-39 Min Completed 01/26/2021 71057 Complex Chronic Care MGMT Servic e Ea Addl 30 Min Completed 01/26/2021 28894 Complex Chronic Care Management SVC 1St 60 Min Completed 01/23/2021 75341 Office/Outpatient Established SF MDM 10-19 Min Completed 2020 74752 Chronic Care MGMT 20 Mins Clinical Staff Time Per Calendar Month Completed 2020 97934 Chronic Care Management Services Ea Addl 20 Min Completed 03/08/2019 14146116 Colonoscopy Completed 02/07/2014 [id number] Colonoscopy Completed Medical Devices Description No Information [...] artificial knee joint Office Visit 02/16/2021 9:30a [facility] E78.5 Hyperlipidemia, unspecified [...] Activity, bike riding Office Visit 01/23/2021 1:40p [facility] Cervantes JR PA M25.512 Pain [...] hyp erplasia without lower urinary tract symptoms eNo Munoz M.D. 06/09/2021 Z96.653 Presence of artificial [...] 8:30 am - Neo Munoz M.D. at [facility] 06/09/2021 - Neo Munoz M.D.* [...] CONSULT FOR LT SHOULDER PAIN Closed 01/28/2021 [facility] [address] [place] [address] [phone]
--- OUTSIDE RECORDS SUMMARY | 2021-08-03 16:03 | CCD ---
Continuity of Care Document (CCD) Created on: 06/29/2021 Arik Valiente External Reference #: [id number] : [id number] Sex: Male Author Author Arik SÁNCHEZ M.D. Organization Unknown Address [address] [facility] [address] [place] [address] Phone [phone] Care Team Providers Care Day Care Aide Name Role Phone Neo Sánchez MD AUTM [phone] Miguel Carty MD AUTM [phone] Jesse Euceda DPM AUTM [phone] Arik Foss OD AUTM [phone] Brandon Shin MD AUTM [phone] Vick Monique M.D. AUTM [phone] Problems Active Problems Provider Date Primary "polygenic" [...] mouth every day prn GERD 90caps Neo Sánchez M.D. 06/26/[address] Part by mouth daily 30caps Neo Sánchez M.D. 10/31/2018 Flomax 0.4mg Capsules 1 by mouth every day 30jessie Sánchez M.D. 10/31/2018 Gabapentin 300mg Capsules 1 [...] Vaccine Lot # U-[id number] Given 06/23/2020 Influenza,Unspecified [id number] Given 08/21/2018 Influenza Virus Vaccine, Quadrivalent ([id number]), Derived From Cell [id number] Given 08/09/2016 Fluvirin Virus Vaccine 44680 01 19397 Given 08/09/2014 Influenza Virus Vaccine 59688 Given 01/17/2014 Pneumovax 23 28206 Given 07/17/2013 Adacel- Tetanus Diphtheria P ertussis 07899 Given 07/17/2013 Influenza Virus Vaccine 76152 Given 09/05/2012 Influenza Virus Vaccine 37343 Given 11/15/2011 Influenza Virus Vaccine 73334 Given 10/10/1998 Adacel- Tetanus Diphtheria P ertussis 88790 Refused 02/16/2021 Prevnar 13 [id number] Refused 01/17/2014 Zoster Vaccine 72424 Refused 10/12/2010 Influenza Virus Vaccine Vital Signs [...] H/L Range Note Laboratory test finding 06/09/2021 [facility] Doper Operator sharon bedolla [employer] Installer: RENETTA Burch [id number] [phone] PSA 0.46 ng/mL <4.00 1 Complete Blood Count 06/09/2021 sharon Estrella [employer] Installer: RENETTA Burch [id number] [phone] WBC 5.0 x10*3/UL 4.1 - 10.9 RBC [...] 2.0 - 7.8 Comprehensive Chem Profile 06/09/2021 [place] sharon Starr [employer] Tr[employer] Installer: [place] [address] [phone] Glucose 78 mg/dL 74 - 99 2 [...] mL/min >60 3 Laboratory test finding 06/09/2021 [place] Brice bedolla pc [employer] Tr[employer] Installer: Dr Schuyler Burns [place], [place] [id number] [phone] Thyroid Stimulating Hormone 1.17 uIU/mL 0.3 6 - 3.74 PT & Aptt 04/15/2021 [facility] n[facility] [address] [place] [address] [phone] Prothrombin Time 13.0 seconds Normal 12.5-14.3 Inr 0.96 Normal 4 Partial Thromboplastin Time 26.6 seconds Normal 24.2-38.5 Complete Blood Count 04/15/2021 [place] Historian sharon sainz [employer] Tr[employer] Installer: [place] [address] [phone] WBC 4.7 x10*3/UL 4.1 - 10.9 RBC [...] 2.0 - 7.8 Comprehensive Chem Profile 04/15/2021 [place] sharon Starr [employer] Tr[employer] Installer: [place] [address] [phone] Glucose 107 mg/dL High 74 - 99 [...] mL/min >60 6 Comprehensive Chem Profile 02/13/2021 [facility], [employer] Installer: [place] [address] [phone] Glucose 106 mg/dL High 74 - 99 [...] 60 mL/min >60 9 Lipid Profile 02/13/2021 [facility] , [employer] Trim Installer: [place] [address] [phone] Cholesterol 182 mg/dL 131 - 200 Triglycerides 93 mg/dL 30 - 150 HDL Cholesterol 52 mg/dL 35 - 60 LDL (Calculated) 111 CALC 50 - 159 1 This assay was performed on the Siemens [...] LITTLE GFR LEFT ESRD GFR <15 ON [employer]UCTION PLANT SUPERVISOR 4 THERAPUTIC HUMAN INR VALUES INDICATIONS NORMAL [...] LITTLE GFR LEFT ESRD GFR <15 ON [employer] SUPERVISOR 7 100-125 mg/dL PRE-DIABET ES/FASTING >126 mg/dL DIABETES/FASTING 8 NOTE: CALCIUM,ALK PHOS VERIFIED 9 CHRONIC KIDNEY DISEASE STAGI NG PER NKF STAGE I & II GFR >= 60 NORMAL TO MILDLY DECREASED STAGE III GFR 30-59 MODERATELY DECREASED STAGE IV GFR 15-29 SEVERELY DECREASED STAGE V GFR <15 VERY LITTLE GFR LEFT ESRD GFR <15 ON [employer] SUPERVISOR Procedures Date Code Description Status 06/09/2021 07284 Office/Outpatient Established Mo d MDM 30-39 Min Completed 05/06/2021 77402 Chronic Care MGMT 20 Mins Clinical Staff Time Per Calendar Month Completed 04/15/2021 39220 Office/Outpatient Established Mo d MDM 30-39 Min Completed 04/15/2021 57690 EKG/Interpretation & Report Comp leted 04/07/2021 09791 Chronic Care MGMT 20 Mins Clinical Staff Time Per Calendar Month Completed 02/23/2021 55588 Chronic Care MGMT 20 Mins Clinical Staff Time Per Calendar Month Completed 02/16/2021 37354 Office/Outpatient Established Mo d MDM 30-39 Min Completed 01/26/2021 33592 Complex Chronic Care MGMT Servic e Ea Addl 30 Min Completed 01/26/2021 07771 Complex Chronic Care Management SVC 1St 60 Min Completed 01/23/2021 78758 Office/Outpatient Established SF MDM 10-19 Min Completed 2020 95379 Chronic Care MGMT 20 Mins Clinical Staff Time Per Calendar Month Completed 2020 13362 Chronic Care Management Services Ea Addl 20 Min Completed 03/08/2019 93615834 Colonoscopy Completed 02/07/2014 07563930 Colonoscopy Completed Medical Devices Description No Information Available Encounters Type Date Location Provider Dx Diagnosis Office Visit 06/09/2021 3:00p [place] [facility] M.D. E78.00 Pure hypercholesterolemia, unspecified [...] neoplasm of prostate Office Visit 04/15/2021 10:00a [place] [facility] bed[facility] M.D. Z01.818 Encounter for other [...] artificial knee joint Office Visit 02/16/2021 9:30a [place] [facility] M.D. E78.5 Hyperlipidemia, unspecified I10 Essential (primary) [...] Activity, bike riding Office Visit 01/23/2021 1:40p [facility], PSatya Cervantes JR, [place] M25.512 Pain in left [...] of colonic poly ps Neo Sánchez M.D. 06/09/2021 Z12.5 Encounter for screening [...] Neo Sánchez M.D. 2020 E78.5 Hyperlipidemia, unspecified Susana Sánchez M.D. 2020 I10 Essential (primary) hypertension Neo Sánchez M.D. Plan of Treatment Future Appointment(s):* 12/10/2021 8:30 am - Neo S[facility]chez M.D. at [facility] 06/09/2021 - Neo Sánchez M.D.* E78.00 Pure [...] neuropathy: Generally stable. He follows up at [facility] and will continue appropriate follow up. [...] CONSULT FOR LT SHOULDER PAIN Closed 01/28/2021 [facility] [address] [place] [address] [phone]
--- OUTSIDE RECORDS SUMMARY | 2021-08-03 16:03 | CCD | Continuity of Care Document ---
Author Author Arik ALMARAZ MD Organization Unknown Address [address] [address] Phone [phone] Care Team Providers Care Real Time Analyst Name Role Phone Neo [facility] M.D. [facility] [phone] Problems Active Problems Provider Date Hypertrophy of [...] lb BMI (Body Mass Index) 35.5 kg/m2 [place] Body Weight 196 lb Weight 128.822 kg BSA (Body Surface Area) 2.55 m2 02/15/2019 11:31am BP Systolic 116 mmHg LA BP Diastolic 74 mmHg LA Heart Rate 80 /min Height 75 inches 6'3" Weight 291.00 lb BMI (Body Mass Index) 36.4 kg/m2 [place] Body Weight 196 lb Weight 131.998 kg BSA (Body Surface Area) 2.57 m2 Results Description No Information Available Procedures Description No Information Available Medical Devices Description No Information Available Encounters Description No Information Available Assessments Description No Information Available Plan of Treatment 02/15/2019 - Kyler Mckeon NP* Z86.010 Personal history of colonic polyps* Comments:* Patient has had a personal history of colonic polyps and at this point the recommendation is to proceed with a repeat colonoscopy risks as well as benefits have been discussed at length those including but not limited to bleeding infection damage to bowel including perforation and possibly anesthetic complications. Patient understands as well that small lesions/polyps can be missed with increased frequency and is much dependent on colonic prep. The patient agrees to proceed with colonoscopy as recommended. * Z12.11 Encounter for screening for malignant neoplasm of colon Functional Status Description No Information Available Mental Status Description No Information Available Referrals Description No Information Available
--- OUTSIDE RECORDS SUMMARY | 2021-08-03 16:03 | CCD | Continuity of Care Document ---
Author Author Arik AWAD M.D. Organization Unknown Address [address] [place] [address] Phone [phone] Care Team Providers Care Crystal Mounter Name Role Phone Neo Sánchez M.D. AUTM [phone] Problems Active Problems Provider Date Low back pain Malgorzata Awad M.D. Onset: 07/04/2018 Pain in lower limb Malgorzata Awad M.D. Onset: 07/04/2018 Pain in left lower limb Malgorzata Awad M.D. Onset: 9 Pain in right lower limb Malgorzata Awad M.D. Onset: 02/28/20 21 Social History Type Date Description Comments Sex Unknown Tobacco Use Start: Unknown Patient has never smoked Allergies, Adverse Reactions, Alerts Description No Known Drug Allergies Medications Active Medications SIG Qnty Indications Ordering Provide r Date Prednisone 20mg Tablets 3 by mouth daily x 3 days; then 2 tab daily x 3 days; then 1 tab daily x 3 days; then 1/2 tab daily x 3 days 20tabs Malgorzata Awad M.D. 02/24/[address] Part 1 by mouth every day 30caps Malgorzata Awad M.D. 08/22/2018 Immunizations Description No Information Available Vital Signs Date Vital Result Comment 07/04/2018 5:33pm Respiratory Rate 14 /min Height 74.5 inches 6'2.50" Weight 280.00 lb BMI (Body Mass Index) 35.5 kg/m2 [place] Body Weight 190 lb Results Description No Information Available Procedures Date Code Description Status 03/28/2021 24848 MRI Spine Cervical W/O Contrast Completed 03/28/2021 86187 MRI Spine Cervical W/O Contrast Completed 02/27/2021 70871 Phone Evaluation/Management By Maddie greenfield 5-10 Mins Completed 02/26/2021 26611 Nerve Conduction 11-12 Studies C ompleted 02/26/2021 70439 Needle Electromyography Complete , Five Or More Muscles Studied Completed 02/26/2021 73368 Needle Electromyography Complete , Five Or More Muscles Studied Completed 02/24/2021 82234 Office/Outpatient Established [facility] MDM 40-54 Min Completed 02/20/2021 88326 Phone Evaluation/Management Phys ician 11-20 Mins Completed 02/20/2021 09237 MRI Spine Lumbar W/O Contrast Co mpleted 02/20/2021 51223 MRI Spine Lumbar W/O Contrast Co mpleted Medical Devices Description No Information Available Encounters Type Date Location Provider Dx Diagnosis Office Visit 02/27/2021 8:00a Main office - [place] M.D. M79.604 Pain in right leg M79.605 Pain in left leg R20.2 Paresthesia of skin G60.9 Hereditary and idiopathic ne uropathy, unspecified M62.9 Disorder of muscle, unspecif ied M54.5 Low back pain M48.061 Spinal stenosis, lumbar drew on without neurogenic marlon Office Visit 02/24/2021 3:15p Main office - [place] Malgorzata Awad M.D. G56.02 Carpal tunnel syndrome, left upper limb M47.892 Other spondylosis, cervical region M54.5 Low back pain M47.897 Other spondylosis, lumbosacr al region M54.16 Radiculopathy, lumbar region M62.9 Disorder of muscle, unspecif ied Office Visit 02/20/2021 9:45a Main office - [place] Malgorzata Awad M.D. M54.5 Low back pain M47.897 Other spondylosis, lumbosacr al region R20.2 Paresthesia of skin G60.9 Hereditary and idiopathic ne uropathy, unspecified M54.16 Radiculopathy, lumbar region M62.9 Disorder of muscle, unspecif ied Assessments Date Code Description Provider 03/28/2021 M48.02 Spinal stenosis, cervical region Akanksha Awad M.D. 03/28/2021 M48.02 Spinal stenosis, cervical region MRI 02/27/2021 M79.604 Pain in right leg Malgorzata Ritesh, M.D. 02/27/2021 M79.605 Pain in left leg Malgorzata Ritesh, M .D. 02/27/2021 R20.2 Paresthesia of skin Malgorzata Ritesh , M.D. 02/27/2021 G60.9 Hereditary and idiopathic neurop athy, unspecified Malgorzata Ritesh, M.D. 02/27/2021 M62.9 Disorder of muscle, unspecified Malgorzata Ritesh, M.D. 02/27/2021 M54.5 Low back pain Malgorzata Ritesh, M. D. 02/27/2021 M48.061 Spinal stenosis, lum bar region without neurogenic claudication Malgorzata Ritesh, M.D. 02/26/2021 G60.9 Hereditary and idiopathic neurop athy, unspecified Farhat JamesDIsabel 02/26/2021 M54.16 Radiculopathy, lumbar region Nish Cuellar M.D. 02/24/2021 G56.02 Carpal tunnel syndrome, left upp er limb Malgorzata Ritesh, M.D. 02/24/2021 M47.892 Other spondylosis, cervical drew on Malgorzata Ritesh, M.D. 02/24/2021 M54.5 Low back pain Malgorzata Ritesh, M. D. 02/24/2021 M47.897 Other spondylosis, lumbosacral r egion Malgorzata Ritesh, M.D. 02/24/2021 M54.16 Radiculopathy, lumbar region Sun dus Ritesh, M.D. 02/24/2021 M62.9 Disorder of muscle, unspecified Malgorzata Ritesh, M.D. 02/20/2021 M47.897 Other spondylosis, lumbosacral r egion Akanksha Ritesh, M.D. 02/20/2021 M54.5 Low back pain Malgorzata Ritesh, M. D. 02/20/2021 M47.897 Other spondylosis, lumbosacral r egion MRI 02/20/2021 M47.897 Other spondylosis, lumbosacral r egion Malgorzata Ritesh, M.D. 02/20/2021 R26.2 Difficulty in walking, not elsew here classified MRI 02/20/2021 R20.2 Paresthesia of skin Malgorzata Awad M.D. 02/20/2021 G60.9 Hereditary and idiopathic neurop athy, unspecified Malgorzata Awad M.D. 02/20/2021 M54.16 Radiculopathy, lumbar region Renetta Awad M.D. 02/20/2021 M62.9 Disorder of muscle, unspecified Malgorzata Awad M.D. Plan of Treatment No Information Available Functional Status Description No Information Available Mental Status Description No Information Available Referrals Refer to Dr Reason for Referral Status Appt Date [facility] DOROTHY - LUMBAR STENOSIS [facility] [address] [place] [id number] [phone] Asher Albarado M.D. DOROTHY - LUMBAR STENOSIS Created [facility] [address] [facility], [address] [place] [address] [phone]
--- OUTSIDE RECORDS SUMMARY | 2021-08-03 16:03 | CCD | Continuity of Care Document ---
Author Author Arik AWAD M.D. Organization Unknown Address [address] [place], [place] [address] Phone [phone] Care Team Providers Care Dba Name Role Phone Neo Sánchez M.D. AUTM [phone] Problems Active Problems Provider Date Low back [...] lb BMI (Body Mass Index) 35.5 kg/m2 [place] Body Weight 190 lb Results Description No Information Available Procedures Date Code Description Status 06/02/2021 89499 Phone Evaluation/Management Phys ician 11-20 Mins Completed 03/28/2021 64720 MRI Spine Cervical W/O Contrast Completed 03/28/2021 19810 MRI Spine Cervical W/O Contrast Completed 02/27/2021 05062 Phone Evaluation/Management By Maddie greenfield 5-10 Mins Completed 02/26/2021 31363 Nerve Conduction 11-12 Studies C ompleted 02/26/2021 16541 Needle Electromyography Complete , Five Or More Muscles Studied Completed 02/26/2021 49480 Needle Electromyography Complete , Five Or More Muscles Studied Completed 02/24/2021 39681 Office/Outpatient Established [facility] 40-54 Min Completed 02/20/2021 26527 Phone Evaluation/Management Phys ician 11-20 Mins Completed 02/20/2021 89715 MRI Spine Lumbar W/O Contrast Co mpleted 02/20/2021 74309 MRI Spine Lumbar W/O Contrast Co mpleted Medical Devices Description No Information Available Encounters Type Date Location Provider Dx Diagnosis Office Visit 06/02/2021 8:15a [place] M54.5 Low back pain R20.2 Paresthesia of skin G60.9 Hereditary and idiopathic ne uropathy, unspecified M48.02 Spinal stenosis, cervical re gion M54.16 Radiculopathy, lumbar region Office Visit 02/27/2021 8:00a [place] M[place] M79.604 Pain in right leg M79.605 Pain in left leg R20.2 Paresthesia of skin G60.9 Hereditary and idiopathic ne uropathy, unspecified M62.9 Disorder of muscle, unspecif ied M54.5 Low back pain M48.061 Spinal stenosis, lumbar drew on without neurogenic marlon Office Visit 02/24/2021 3:15p Main office - [place] Malgorzata Awad M.D. G56.02 Carpal tunnel syndrome, left upper limb M47.892 Other spondylosis, cervical region M54.5 Low back pain M47.897 Other spondylosis, lumbosacr al region M54.16 Radiculopathy, lumbar region M62.9 Disorder of muscle, unspecif ied Office Visit 02/20/2021 9:45a Main office - [place] Malgorzata Ritesh, M.D. M54.5 Low back pain M47.897 Other spondylosis, lumbosacr al region R20.2 Paresthesia of skin G60.9 Hereditary and idiopathic ne uropathy, unspecified M54.16 Radiculopathy, lumbar region M62.9 Disorder of muscle, unspecif ied Assessments Date Code Description Provider 06/02/2021 M54.5 Low back pain Malgorzata Ritesh, M. D. 06/02/2021 R20.2 Paresthesia of skin Malgorzata Ritesh , M.D. 06/02/2021 G60.9 Hereditary and idiopathic neurop athy, unspecified Malgorzata Ritesh, M.D. 06/02/2021 M48.02 Spinal stenosis, cervical region Malgorzata Ritesh, M.D. 06/02/2021 M54.16 Radiculopathy, lumbar region Sun dus Ritesh, M.D. 03/28/2021 M48.02 Spinal stenosis, cervical region Akanksha Ritesh, M.D. 03/28/2021 M48.02 Spinal stenosis, cervical region [...] G60.9 Hereditary and idiopathic neurop athy, unspecified Cherrie Cuellar M.D. 02/26/2021 M54.16 Radiculopathy, lumbar region Nish uCellar M.D. 02/24/2021 G56.02 Carpal tunnel syndrome, left [...] MRI 02/20/2021 R20.2 Paresthesia of skin Malgorzata Ritesh , M.D. 02/20/2021 G60.9 Hereditary and idiopathic neurop athy, unspecified Malgorzata Ritesh, M.D. 02/20/2021 M54.16 Radiculopathy, lumbar region Sun dus Ritesh, M.D. 02/20/2021 M62.9 Disorder of muscle, unspecified Malgorzata Ritesh, M.D. Plan of Treatment No Information Available Functional Status Description No Information Available Mental Status Description No Information Available Referrals Refer to Reason for Referral Status Appt Date [facility] DOROTHY - LUMBAR STENOSIS [facility] [address] [place] [address] [phone] Asher Albarado M.D. DOROTHY - LUMBAR STENOSIS Created [facility] [facility], [address] [place] [address] [phone]
--- OUTSIDE RECORDS SUMMARY | 2021-08-03 16:03 | CCD | Continuity of Care Document ---
Author Author Arik SÁNCHEZ M.D. Organization Unknown Address [address] [facility] [address] [place] [address] Phone [phone] Care Team Providers Care Sales Commissions Analyst Name Role Phone Neo Sánchez MD AUTM [phone] Miguel Carty MD AUTM [phone] Jesse Euceda DPM AUTM [phone] Arik Foss OD AUTM [phone] Brandon Shin MD AUTM [phone] Vick Monique M.D. AUTM [phone] Problems Active Problems Provider Date Primary "polygenic" [...] Vaccine Lot # U-Flu Given 06/23/2020 Influenza,Unspecified 58355 Given 08/21/2018 Influenza Virus Vaccine, Quadrivalent (Cciiv4), Derived From Cell [id number] [id number] Given 08/09/2016 Fluvirin Virus Vaccine 10530 01 28518 Given 08/09/2014 Influenza Virus Vaccine 83012 Given 01/17/2014 Pneumovax 23 57794 Given 07/17/2013 Adacel- Tetanus Diphtheria P ertussis (Age64 & Under) 52470 Given 07/17/2013 Influenza Virus Vaccine 17179 Given 09/05/2012 Influenza Virus Vaccine 25047 Given 11/15/2011 Influenza Virus Vaccine 56884 Given 10/10/1998 Adacel- Tetanus Diphtheria P ertussis (Age64 & Under) 67295 Refused 02/16/2021 Prevnar 13 12659 Refused 01/17/2014 Zoster Vaccine 65754 Refused 10/12/2010 Influenza Virus Vaccine Vital Signs [...] H/L Range Note Laboratory test finding 06/09/2021 [facility] Medical Assistant sharon bedolla Patient Financial Services Coordinator: RENETTA Burch [address] [phone] PSA 0.46 ng/mL <4.00 1 Complete Blood Count 06/09/2021 sharon Estrella Patient Financial Services Coordinator: RENETTA Burch [address] [phone] WBC 5.0 x10*3/UL 4.1 - 10.9 RBC [...] 2.0 - 7.8 Comprehensive Chem Profile 06/09/2021 [facility] Patient Financial Services Coordinator: [place] [address] [phone] Glucose 78 mg/dL 74 - 99 2 [...] mL/min >60 3 Laboratory test finding 06/09/2021 [facility] sharon Dooley Patient Financial Services Coordinator: [place] [address] [phone] Thyroid Stimulating Hormone 1.17 uIU/mL 0.3 6 - 3.74 PT & Aptt 04/15/2021 [facility] nter [address] [place] [address] [phone] Prothrombin Time 13.0 seconds Normal 12.5-14.3 Inr 0.96 Normal 4 Partial Thromboplastin Time 26.6 seconds Normal 24.2-38.5 Complete Blood Count 04/15/2021 [facility] [employer] Physical Education Teacher alistair pc Patient Financial Services Coordinator: [place] [address] [phone] WBC 4.7 x10*3/UL 4.1 - 10.9 RBC [...] 2.0 - 7.8 Comprehensive Chem Profile 04/15/2021 [facility] sharon Starr Patient Financial Services Coordinator: [place] [address] [phone] Glucose 107 mg/dL High 74 - 99 [...] mL/min >60 6 Comprehensive Chem Profile 02/13/2021 [facility], Patient Financial Services Coordinator: [place] [address] [phone] Glucose 106 mg/dL High 74 - 99 [...] 60 mL/min >60 9 Lipid Profile 02/13/2021 [facility] , Patient Financial Services Coordinator: [place] [address] [phone] Cholesterol 182 mg/dL 131 - 200 Triglycerides 93 mg/dL 30 - 150 HDL Cholesterol 52 mg/dL 35 - 60 LDL (Calculated) 111 CALC 50 - 159 1 This assay was performed on the [employer] EXL using the B- Galactosidase/CPRG methodology and [...] LITTLE GFR LEFT ESRD GFR <15 ON DIRECTOR CAMP 4 THERAPUTIC HUMAN INR VALUES INDICATIONS NORMAL [...] LITTLE GFR LEFT ESRD GFR <15 ON DIRECTOR CAMP 7 100-125 mg/dL PRE-DIABET ES/FASTING >126 mg/dL DIABETES/FASTING 8 NOTE: CALCIUM,ALK PHOS VERIFIED 9 CHRONIC KIDNEY DISEASE STAGI NG PER NKF STAGE I & II GFR >= 60 NORMAL TO MILDLY DECREASED STAGE III GFR 30-59 MODERATELY DECREASED STAGE IV GFR 15-29 SEVERELY DECREASED STAGE V GFR <15 VERY LITTLE GFR LEFT ESRD GFR <15 ON DIRECTOR CAMP Procedures Date Code Description Status 05/06/2021 86278 Chronic Care MGMT 20 Mins Clinical Staff Time Per Calendar Month Completed 04/15/2021 47452 Office/Outpatient Established Mo d MDM 30-39 Min Completed 04/15/2021 57578 EKG/Interpretation & Report Comp leted 04/07/2021 96905 Chronic Care MGMT 20 Mins Clinical Staff Time Per Calendar Month Completed 02/23/2021 27755 Chronic Care MGMT 20 Mins Clinical Staff Time Per Calendar Month Completed 02/16/2021 34948 Office/Outpatient Established Mo d MDM 30-39 Min Completed 01/26/2021 52757 Complex Chronic Care MGMT Servic e Ea Addl 30 Min Completed 01/26/2021 39418 Complex Chronic Care Management SVC 1St 60 Min Completed 01/23/2021 44444 Office/Outpatient Established SF MDM 10-19 Min Completed 2020 16683 Chronic Care MGMT 20 Mins Clinical Staff Time Per Calendar Month Completed 2020 91141 Chronic Care Management Services Ea Addl 20 Min Completed 03/08/2019 33963210 Colonoscopy Completed 02/07/2014 10389070 Colonoscopy Completed Medical Devices Description No Information Available Encounters Type Date Location Provider Dx Diagnosis Office Visit 04/15/2021 10[facility]00a [facility] Z01.818 Encounter for other preprocedural examin ation M54.5 Low back pain E78.5 Hyperlipidemia, unspecified K21.9 Gastro-esophageal reflux dis ease without esophagitis B00.89 Other herpesviral infection N40.0 Benign prostatic hyperplasia without lower urinry tract symp F52.21 Male erectile disorder M19.90 Unspecified osteoarthritis, unspecified site Z96.652 Presence of left artificial knee joint Z96.651 Presence of right artificial knee joint Office Visit 02/16/2021 9:30a [facility] E78.5 Hyperlipidemia, unspecified I10 Essential (primary) [...] Activity, bike riding Office Visit 01/23/2021 1:40p [facility], [place] M25.512 Pain in [...] Hereditary and idiopathic neurop athy, neftaliified Neo Sánchez M.D. 02/16/2021 R13.10 Dysphagia, unspecified [...] 01/26/2021 K21.9 Gastro-esophageal reflux disease without esophagitis eNo Sánchez M.D. 01/26/2021 E78.00 Pure hypercholesterolemia, unspe [...] 8:30 am - Neo Sánchez M.D. at [facility] 06/09/2021 - Neo Sánchez M.D.* E78.00 Pure [...] CONSULT FOR LT SHOULDER PAIN Closed 01/28/2021 [facility] [address] [place] [address] [phone]
--- OUTSIDE RECORDS SUMMARY | 2021-08-03 16:03 | CCD | Continuity of Care Document ---
Author Author Arik MUNOZ M.D. Organization Unknown Address [address] [facility] [address] [place] [address] Phone [phone] Care Team Providers Care Pest Control Service Representative Name Role Phone Neo Munoz MD AUTM [phone] Miguel Carty MD AUTM [phone] Jesse Euceda DPM AUTM [phone] Arik Foss OD AUTM [phone] Brandon Shin MD AUTM [phone] Vick Monique M.D. AUTM [phone] Problems Active Problems Provider Date Primary "polygenic" [...] Vaccine Lot # U-Flu Given 06/23/2020 Influenza,Unspecified 31104 Given 08/21/2018 Influenza Virus Vaccine, Quadrivalent (Cciiv4), Derived From Cell [id number] [id number] Given 08/09/2016 Fluvirin Virus Vaccine 53899 01 36694 Given 08/09/2014 Influenza Virus Vaccine 89955 Given 01/17/2014 Pneumovax 23 35652 Given 07/17/2013 Adacel- Tetanus Diphtheria P ertussis (Age64 & Under) 95478 Given 07/17/2013 Influenza Virus Vaccine 17086 Given 09/05/2012 Influenza Virus Vaccine 71155 Given 11/15/2011 Influenza Virus Vaccine 31093 Given 10/10/1998 Adacel- Tetanus Diphtheria P ertussis (Age64 & Under) 31752 Refused 02/16/2021 Prevnar 13 52544 Refused 01/17/2014 Zoster Vaccine 78482 Refused 10/12/2010 Influenza Virus Vaccine Vital Signs [...] H/L Range Note Laboratory test finding 06/09/2021 [place] [employer] Tanker Driver sharon bedolla Game Programer: RENETTA Burch [address] [phone] PSA <pending> Laboratory test finding 06/09/2021 [place] [employer] Tanker Driver sharon bedolla Game Programer: RENETTA Burch [address] [phone] TSH <pending> PT & Aptt 04/15/2021 [facility] nter [address] [place], [place] [address] [phone] Prothrombin Time 13.0 seconds Normal 12.5-14.3 Inr 0.96 Normal 1 Partial Thromboplastin Time 26.6 seconds Normal 24.2-38.5 Complete Blood Count 04/15/2021 [place] Can Vacuum Tester sharon sainz Game Programer: [place] [address] [phone] WBC 4.7 x10*3/UL 4.1 - 10.9 RBC [...] 2.0 - 7.8 Comprehensive Chem Profile 04/15/2021 [place] sharon Starr Game Programer: [place] [address] [phone] Glucose 107 mg/dL High 74 - 99 [...] mL/min >60 3 Comprehensive Chem Profile 02/13/2021 [facility], Game Programer: Dr Schuyler Burns [place], [place] [address] [phone] Glucose 106 mg/dL High 74 - 99 [...] 60 mL/min >60 6 Lipid Profile 02/13/2021 [facility] , Game Programer: Dr Schuyler Burns [place], [place] [address] [phone] Cholesterol 182 mg/dL 131 - 200 Triglycerides [...] LITTLE GFR LEFT ESRD GFR <15 ON FLASH WELDER 4 100-125 mg/dL PRE-DIABET ES/FASTING >126 mg/dL DIABETES/FASTING 5 NOTE: CALCIUM,ALK PHOS VERIFIED 6 CHRONIC KIDNEY DISEASE STAGI NG PER NKF STAGE I & II GFR >= 60 NORMAL TO MILDLY DECREASED STAGE III GFR 30-59 MODERATELY DECREASED STAGE IV GFR 15-29 SEVERELY DECREASED STAGE V GFR <15 VERY LITTLE GFR LEFT ESRD GFR <15 ON FLASH WELDER Procedures Date Code Description Status 05/06/2021 55984 Chronic Care MGMT 20 Mins Clinical Staff Time Per Calendar Month Completed 04/15/2021 42555 Office/Outpatient Established Mo d MDM 30-39 Min Completed 04/15/2021 77439 EKG/Interpretation & Report Comp leted 04/07/2021 74010 Chronic Care MGMT 20 Mins Clinical Staff Time Per Calendar Month Completed 02/23/2021 27111 Chronic Care MGMT 20 Mins Clinical Staff Time Per Calendar Month Completed 02/16/2021 64549 Office/Outpatient Established Mo d MDM 30-39 Min Completed 01/26/2021 44839 Complex Chronic Care MGMT Servic e Ea Addl 30 Min Completed 01/26/2021 64091 Complex Chronic Care Management SVC 1St 60 Min Completed 01/23/2021 07396 Office/Outpatient Established SF MDM 10-19 Min Completed 2020 90170 Chronic Care MGMT 20 Mins Clinical Staff Time Per Calendar Month Completed 2020 18314 Chronic Care Management Services Ea Addl 20 Min Completed 03/08/2019 44430777 Colonoscopy Completed 02/07/2014 [id number] Colonoscopy Completed Medical Devices Description No Information [...] artificial knee joint Office Visit 02/16/2021 9:30a [facility] E78.5 Hyperlipidemia, unspecified [...] Activity, bike riding Office Visit 01/23/2021 1:40p [facility] C[facility] PA M25.512 Pain [...] Munoz M.D. 05/06/2021 I10 Essential (primary) hypertension Noe Munoz M.D. 05/06/2021 K21.9 Gastro-esophageal reflux disease [...] 8:30 am - Neo Munoz M.D. at [facility] 06/09/2021 - Neo Munoz M.D.* [...] CONSULT FOR LT SHOULDER PAIN Closed 01/28/2021 [facility] [address] [place] [address] [phone]
--- OUTSIDE RECORDS SUMMARY | 2021-08-03 16:03 | CCD | Continuity of Care Document ---
Author Author Arik MUNOZ M.D. Organization Unknown Address [address] [facility] [address] [place] [address] Phone [phone] Care Team Providers Care Associate Material Handler Name Role Phone Neo Munoz MD AUTM [phone] Miguel Carty MD AUTM [phone] Jesse Euceda DPM AUTM [phone] Arik Foss OD AUTM [phone] Brandon Shin MD AUTM [phone] Vick Monique M.D. AUTM [phone] Problems Active Problems Provider Date Primary "polygenic" [...] Vaccine Lot # U-Flu Given 06/23/2020 Influenza,Unspecified 94408 Given 08/21/2018 Influenza Virus Vaccine, Quadrivalent (Cciiv4), Derived From Cell [id number] [id number] Given 08/09/2016 Fluvirin Virus Vaccine 05894 01 21032 Given 08/09/2014 Influenza Virus Vaccine 31046 Given 01/17/2014 Pneumovax 23 60084 Given 07/17/2013 Adacel- Tetanus Diphtheria P ertussis (Age64 & Under) 44439 Given 07/17/2013 Influenza Virus Vaccine 39363 Given 09/05/2012 Influenza Virus Vaccine 65652 Given 11/15/2011 Influenza Virus Vaccine 65795 Given 10/10/1998 Adacel- Tetanus Diphtheria P ertussis (Age64 & Under) 93413 Refused 02/16/2021 Prevnar 13 83804 Refused 01/17/2014 Zoster Vaccine 31913 Refused 10/12/2010 Influenza Virus Vaccine Vital Signs [...] H/L Range Note Laboratory test finding 06/09/2021 [place] Needle Loom Setter sharon bedolla Drag Out Worker: RENETTA Burch [address] [phone] PSA <pending> Laboratory test finding 06/09/2021 [place] Needle Loom Setter sharon bedolla Drag Out Worker: RENETTA Burch [address] [phone] TSH <pending> PT & Aptt 04/15/2021 [facility] nter [address] [place], [place] [address] [phone] Prothrombin Time 13.0 seconds Normal 12.5-14.3 Inr 0.96 Normal 1 Partial Thromboplastin Time 26.6 seconds Normal 24.2-38.5 Complete Blood Count 04/15/2021 [place] Big Data Hadoop Developer sharon sainz Drag Out Worker: [place] [address] [phone] WBC 4.7 x10*3/UL 4.1 - 10.9 RBC [...] 2.0 - 7.8 Comprehensive Chem Profile 04/15/2021 [place] sharon Starr Drag Out Worker: [place] [address] [phone] Glucose 107 mg/dL High 74 - 99 [...] mL/min >60 3 Comprehensive Chem Profile 02/13/2021 [facility], Drag Out Worker: Dr Schuyler Burns [place], [place] [address] [phone] Glucose 106 mg/dL High 74 - 99 [...] 60 mL/min >60 6 Lipid Profile 02/13/2021 [facility] , Drag Out Worker: Dr Schuyler Burns [place], [place] [address] [phone] Cholesterol 182 mg/dL 131 - 200 Triglycerides [...] LITTLE GFR LEFT ESRD GFR <15 ON PROPERTY SITE MANAGER 4 100-125 mg/dL PRE-DIABET ES/FASTING >126 mg/dL DIABETES/FASTING 5 NOTE: CALCIUM,ALK PHOS VERIFIED 6 CHRONIC KIDNEY DISEASE STAGI NG PER NKF STAGE I & II GFR >= 60 NORMAL TO MILDLY DECREASED STAGE III GFR 30-59 MODERATELY DECREASED STAGE IV GFR 15-29 SEVERELY DECREASED STAGE V GFR <15 VERY LITTLE GFR LEFT ESRD GFR <15 ON PROPERTY SITE MANAGER Procedures Date Code Description Status 05/06/2021 29421 Chronic Care MGMT 20 Mins Clinical Staff Time Per Calendar Month Completed 04/15/2021 36496 Office/Outpatient Established Mo d MDM 30-39 Min Completed 04/15/2021 60590 EKG/Interpretation & Report Comp leted 04/07/2021 22991 Chronic Care MGMT 20 Mins Clinical Staff Time Per Calendar Month Completed 02/23/2021 74743 Chronic Care MGMT 20 Mins Clinical Staff Time Per Calendar Month Completed 02/16/2021 97383 Office/Outpatient Established Mo d MDM 30-39 Min Completed 01/26/2021 08947 Complex Chronic Care MGMT Servic e Ea Addl 30 Min Completed 01/26/2021 01168 Complex Chronic Care Management SVC 1St 60 Min Completed 01/23/2021 42183 Office/Outpatient Established SF MDM 10-19 Min Completed 2020 58543 Chronic Care MGMT 20 Mins Clinical Staff Time Per Calendar Month Completed 2020 65290 Chronic Care Management Services Ea Addl 20 Min Completed 03/08/2019 08859809 Colonoscopy Completed 02/07/2014 24807389 Colonoscopy Completed Medical Devices Description No Information [...] artificial knee joint Office Visit 02/16/2021 9:30a [facility] E78.5 Hyperlipidemia, unspecified [...] Activity, bike riding Office Visit 01/23/2021 1:40p [facility] Cerv[facility] JR PA M25.512 Pain [...] for screening for othe r disorder Neo uMnoz M.D. 02/16/2021 Z13.89 Encounter for screening for [...] 8:30 am - Neo Munoz M.D. at [facility] 06/09/2021 - Neo Munoz M.D.* [...] CONSULT FOR LT SHOULDER PAIN Closed 01/28/2021 [facility] [address] [place] [address] [phone]
--- OUTSIDE RECORDS SUMMARY | 2021-08-03 16:03 | CCD | Continuity of Care Document ---
Author Author Arik MUNOZ M.D. Organization Unknown Address [address] [facility] [address] [place] [address] Phone [phone] Care Team Providers Care Fundraising Officer Name Role Phone Neo Munoz MD AUTM [phone] Miguel Carty MD AUTM [phone] Jesse Euceda DPM AUTM [phone] Arik Foss OD AUTM [phone] Brandon Shin MD AUTM [phone] Vick Monique M.D. AUTM [phone] Problems Active Problems Provider Date Primary "polygenic" [...] Vaccine Lot # U-Flu Given 06/23/2020 Influenza,Unspecified 94313 Given 08/21/2018 Influenza Virus Vaccine, Quadrivalent (Cciiv4), Derived From Cell [id number] Q2037 Given 08/09/2016 Fluvirin Virus Vaccine 06493 01 76894 Given 08/09/2014 Influenza Virus Vaccine 55516 Given 01/17/2014 Pneumovax 23 59577 Given 07/17/2013 Adacel- Tetanus Diphtheria P ertussis (Age64 & Under) 26088 Given 07/17/2013 Influenza Virus Vaccine 87692 Given 09/05/2012 Influenza Virus Vaccine 04185 Given 11/15/2011 Influenza Virus Vaccine 03832 Given 10/10/1998 Adacel- Tetanus Diphtheria P ertussis (Age64 & Under) 65465 Refused 02/16/2021 Prevnar 13 31414 Refused 01/17/2014 Zoster Vaccine 85955 Refused 10/12/2010 Influenza Virus Vaccine Vital Signs [...] H/L Range Note Laboratory test finding 06/09/2021 [place] [employer] Supervisor sharon bedolla Mononitrotoluene Operator: RENETTA Burch [address] [phone] PSA <pending> Laboratory test finding 06/09/2021 [place] [employer] Supervisor sharon bedolla Mononitrotoluene Operator: RENETTA Burch [address] [phone] TSH <pending> PT & Aptt 04/15/2021 [facility] nter [address] [place], [place] [address] [phone] Prothrombin Time 13.0 seconds Normal 12.5-14.3 Inr 0.96 Normal 1 Partial Thromboplastin Time 26.6 seconds Normal 24.2-38.5 Complete Blood Count 04/15/2021 [facility] Director Of In Service Education sharon sainz Mononitrotoluene Operator: [place] [address] [phone] WBC 4.7 x10*3/UL 4.1 - 10.9 RBC [...] 2.0 - 7.8 Comprehensive Chem Profile 04/15/2021 [facility] sharon Starr Mononitrotoluene Operator: [place] [address] [phone] Glucose 107 mg/dL High 74 - 99 [...] mL/min >60 3 Comprehensive Chem Profile 02/13/2021 [facility], Mononitrotoluene Operator: Dr Schuyler Burns [place], [place] [address] [phone] Glucose 106 mg/dL High 74 - 99 [...] 60 mL/min >60 6 Lipid Profile 02/13/2021 [facility] , Mononitrotoluene Operator: Dr Schuyler Burns [place], [place] [address] [phone] Cholesterol 182 mg/dL 131 - 200 Triglycerides [...] LITTLE GFR LEFT ESRD GFR <15 ON CAR CHASER 4 100-125 mg/dL PRE-DIABET ES/FASTING >126 mg/dL DIABETES/FASTING 5 NOTE: CALCIUM,ALK PHOS VERIFIED 6 CHRONIC KIDNEY DISEASE STAGI NG PER NKF STAGE I & II GFR >= 60 NORMAL TO MILDLY DECREASED STAGE III GFR 30-59 MODERATELY DECREASED STAGE IV GFR 15-29 SEVERELY DECREASED STAGE V GFR <15 VERY LITTLE GFR LEFT ESRD GFR <15 ON CAR CHASER Procedures Date Code Description Status 05/06/2021 38936 Chronic Care MGMT 20 Mins Clinical Staff Time Per Calendar Month Completed 04/15/2021 03827 Office/Outpatient Established Mo d MDM 30-39 Min Completed 04/15/2021 87381 EKG/Interpretation & Report Comp leted 04/07/2021 64754 Chronic Care MGMT 20 Mins Clinical Staff Time Per Calendar Month Completed 02/23/2021 59525 Chronic Care MGMT 20 Mins Clinical Staff Time Per Calendar Month Completed 02/16/2021 33251 Office/Outpatient Established Mo d MDM 30-39 Min Completed 01/26/2021 35502 Complex Chronic Care MGMT Servic e Ea Addl 30 Min Completed 01/26/2021 35087 Complex Chronic Care Management SVC 1St 60 Min Completed 01/23/2021 68062 Office/Outpatient Established SF MDM 10-19 Min Completed 2020 54492 Chronic Care MGMT 20 Mins Clinical Staff Time Per Calendar Month Completed 2020 80097 Chronic Care Management Services Ea Addl 20 Min Completed 03/08/2019 85936405 Colonoscopy Completed 02/07/2014 31689112 Colonoscopy Completed Medical Devices Description No Information [...] artificial knee joint Office Visit 02/16/2021 9:30a [facility] E78.5 Hyperlipidemia, unspecified [...] Activity, bike riding Office Visit 01/23/2021 1:40p [facility] C[facility] JR PA M25.512 Pain [...] 8:30 am - Neo Munoz M.D. at [facility] 06/09/2021 - Neo Munoz M.D.* [...] CONSULT FOR LT SHOULDER PAIN Closed 01/28/2021 [facility] [address] [place] [address] [phone]
--- OUTSIDE RECORDS SUMMARY | 2021-08-03 16:05 | CCD ---
Author Author [facility] Organization [facility] Address Unknown Phone Unavailable Care Team Providers Care Scene Painter Name Role Phone Vinod Shin MD Unavailable Unavailab le Kip, Vinod Taylor MD Unavailable Unavailab le Kip, Vinod Taylor MD Unavailable Unavailab le Kip, Vinod Taylor MD Unavailable Unavailab le Kip, Vinod Taylor MD Unavailable Unavailab le Kip, Vinod Taylor MD Unavailable Unavailab le Kip, Vinod Taylor MD Unavailable Unavailab le Kip, Vinod Taylor MD Unavailable Unavailab le Kip, Vinod Taylor MD Unavailable Unavailab le Kip, Vinod Taylor MD Unavailable Unavailab le Kip, Vinod Taylor MD Unavailable Unavailab le Kip, Vinod Taylor MD Unavailable Unavailab le Kip, Vinod Taylor MD Unavailable Unavailab le Kip, Vinod Taylor MD Unavailable Unavailab le Kip, Vinod Taylor MD Unavailable Unavailab le Kip, Vinod Taylor MD Unavailable Unavailab le Kip, Vinod Taylor MD Unavailable Unavailab le Kip, Vinod Taylor MD Unavailable Unavailab le Kip, Vinod Taylor MD Unavailable Unavailab le Kip, Vinod Taylor MD Unavailable Unavailab le Kip, Vinod Taylor MD Unavailable Unavailab le Kip, Vinod Taylor MD Unavailable Unavailab le Kip, Vinod Taylor MD Unavailable Unavailab le Kip, Vinod Taylor MD Unavailable Unavailab le Kip, Vinod Taylor MD Unavailable Unavailab le Kip, Vinod Taylor MD Unavailable Unavailab le Kip, Vinod Taylor MD Unavailable Unavailab le Kip, Vinod Taylor MD Unavailable Unavailab le Kip, Vinod Taylor MD Unavailable Unavailab le Kip, Vinod Taylor MD Unavailable Unavailab le Kip, Vinod Taylor MD Unavailable Unavailab le Kip, Vinod Taylor MD Unavailable Unavailab le Kip, Vinod Taylor MD Unavailable Unavailab le Kip, Vinod Taylor MD Unavailable Unavailab le Kip, Vinod Taylor MD Unavailable Unavailab le Kip, Vinod Taylor MD Unavailable Unavailab le Kip, Vinod Taylor MD Unavailable Unavailab le Kip, Vinod Taylor MD Unavailable Unavailab le Kip, Vinod Taylor MD Unavailable Unavailab le Kip, Vinod Taylor MD Unavailable Unavailab le Kip, Vinod Taylor MD Unavailable Unavailab le Kip, Vinod Taylor MD Unavailable Unavailab le Kip, Vinod Taylor MD Unavailable Unavailab le Kip, Vinod Taylor MD Unavailable Unavailab le Kip, Vinod Taylor MD Unavailable Unavailab le Kip, Vinod Taylor MD Unavailable Unavailab le Kip, Vinod Taylor MD Unavailable Unavailab le Kip, Vinod Taylor MD Unavailable Unavailab le Kip, Vinod Taylor MD Unavailable Unavailab le Kip, Vinod Taylor MD Unavailable Unavailab le Kip, Vinod Taylor MD Unavailable Unavailab le Kip, Vinod Taylor MD Unavailable Unavailab le Kip, Vinod Taylor MD Unavailable Unavailab le Kip, Vinod Taylor MD Unavailable Unavailab le Kip, Vinod Taylor MD Unavailable Unavailab le Kip, Vinod Taylor MD Unavailable Unavailab le Kip, Vinod Taylor MD Unavailable Unavailab le Kip, Vinod Taylor MD Unavailable Unavailab le Kip, Vinod Taylor MD Unavailable Unavailab le Kip, Vinod Taylor MD Unavailable Unavailab le Kip, Vinod Taylor MD Unavailable Unavailab le Kip, Vinod Taylor MD Unavailable Unavailab le Kip, Vinod Taylor MD Unavailable Unavailab le Kip, Vinod Taylor MD Unavailable Unavailab le Kip, Vinod Taylor MD Unavailable Unavailab le Kip, Vinod Taylor MD Unavailable Unavailab le Kip, Vinod Taylor MD Unavailable Unavailab le Kip, Vinod Taylor MD Unavailable Unavailab le Kip, Vinod Taylor MD Unavailable Unavailab le Kip, Vinod Taylor MD Unavailable Unavailab le Kip, Vinod Taylor MD Unavailable Unavailab le Kip, Vinod Taylor MD Unavailable Unavailab le Kip, Vinod Taylor MD Unavailable Unavailab le Kip, Vinod Taylor MD Unavailable Unavailab le Kip, Vinod Taylor MD Unavailable Unavailab le Kip, Vinod Taylor MD Unavailable Unavailab le Kip, Vinod Taylor MD Unavailable Unavailab le Kip, Vinod Taylor MD Unavailable Unavailab le Kip, Vinod Taylor MD Unavailable Unavailab le Kip, Vinod Taylor MD Unavailable Unavailab le Kip, Vinod Taylor MD Unavailable Unavailab le Kip, Vinod Taylor MD Unavailable Unavailab le Kip, Vinod Taylor MD Unavailable Unavailab le Kip, Vinod Taylor MD Unavailable Unavailab le Kip, Vinod Taylor MD Unavailable Unavailab le Kip, Vinod Taylor MD Unavailable Unavailab le Kip, Vinod Taylor MD Unavailable Unavailab le Kip, Vinod Taylor MD Unavailable Unavailab le Kip, Vinod Taylor MD Unavailable Unavailab le Kip, Vindo Taylor MD Unavailable Unavailab le Kip, Vinod Taylor MD Unavailable Unavailab le Kip, Vinod Taylor MD Unavailable Unavailab le Kip, Vinod Taylor MD Unavailable Unavailab le Kip, Vinod Taylor MD Unavailable Unavailab le Kip, Vinod Taylor MD Unavailable Unavailab le KipVinod MD Unavailable Unavailab le KipVinod lamar MD Unavailable Unavailab le KipVinod jensen MD Unavailable Unavailab le KipVinod MD Unavailable Unavailab le KipVinod lamar MD Unavailable Unavailab le KipVinod MD Unavailable Unavailab le KipVinod MD Unavailable Unavailab le AMY, 0000{ Unavailable Unavailable Rayna Sánchez MD Unavailable Unavailable Rayna Sánchez MD Unavailable Unavailable Rayna Sánchez MD Unavailable Unavailable Rayna Sánchez MD Unavailable Unavailable Rayna Sánchez MD Unavailable Unavailable Rayna Sánchez MD Unavailable Unavailable Rayna Sánchez MD Unavailable Unavailable Rayna Sánchez MD Unavailable Unavailable Rayna Sánchez MD Unavailable Unavailable Rayna Sánchez MD Unavailable Unavailable Rayna Sánchez MD Unavailable Unavailable Rayna Sánchez MD Unavailable Unavailable Rayna Sánchez MD Unavailable Unavailable Rayna Sánchez MD Unavailable Unavailable Rayna Sánchez MD Unavailable Unavailable Rayna Sánchez MD Unavailable Unavailable Rayna Sánchez MD Unavailable Unavailable Rayna Sánchez MD Unavailable Unavailable Rayna Sánchez MD Unavailable Unavailable Rayna Sánchez MD Unavailable Unavailable Rayna Sánchez MD Unavailable Unavailable Rayna Sánchez MD Unavailable Unavailable Rayna Sánchez MD Unavailable Unavailable Rayna Sánchez MD Unavailable Unavailable Rayna Sánchez MD Unavailable Unavailable Rayna Sánchez MD Unavailable Unavailable Rayna Sánchez MD Unavailable Unavailable Rayna Sánchez MD Unavailable Unavailable Rayna Sánchez MD Unavailable Unavailable Rayna Sánchez MD Unavailable Unavailable Rayna Sánchez MD Unavailable Unavailable Rayna Sánchez MD Unavailable Unavailable Rayna Sánchez MD Unavailable Unavailable Rayna Sánchez MD Unavailable Unavailable Rayna Sánchez MD Unavailable Unavailable Rayna Sánchez MD Unavailable Unavailable Rayna Sánchez MD Unavailable Unavailable Rayna Sánchez MD Unavailable Unavailable Rayna Sánchez MD Unavailable Unavailable Rayna Sánchez MD Unavailable Unavailable Rayna Sánchez MD Unavailable Unavailable Rayna Sánchez MD Unavailable Unavailable Rayna Sánchez MD Unavailable Unavailable Rayna Sánchez MD Unavailable Unavailable Rayna Sánchez MD Unavailable Unavailable Rayna Sánchez MD Unavailable Unavailable Rayna Sánchez MD Unavailable Unavailable Rayna Sánchez MD Unavailable Unavailable Rayna Sánchez MD Unavailable Unavailable Rayna Sánchez MD Unavailable Unavailable Rayna Sánchez MD Unavailable Unavailable Rayna Sánchez MD Unavailable Unavailable Rayna Sánchez MD Unavailable Unavailable Rayna Sánchez MD Unavailable Unavailable Rayna Sánchez MD Unavailable Unavailable Rayna Sánchez MD Unavailable Unavailable Rayna Sánchez MD Unavailable Unavailable Rayna Sánchez MD Unavailable Unavailable Rayna Sánchez MD Unavailable Unavailable Rayna Sánchez MD Unavailable Unavailable Rayna Sánchez MD Unavailable Unavailable Rayna Sánchez MD Unavailable Unavailable Rayna Sánchez MD Unavailable Unavailable Rayna Sánchez MD Unavailable Unavailable Rayna Sánchez MD Unavailable Unavailable Rayna Sánchez MD Unavailable Unavailable Rayna Sánchez MD Unavailable Unavailable Rayna Sánchez MD Unavailable Unavailable Rayna Sánchez MD Unavailable Unavailable Rayna Sánchez MD Unavailable Unavailable Rayna Sánchez MD Unavailable Unavailable Rayna Sánchez MD Unavailable Unavailable Rayna Sánchez MD Unavailable Unavailable Rayna Sánchez MD Unavailable Unavailable Rayna Sánchez MD Unavailable Unavailable Rayna Sánchez MD Unavailable Unavailable Rayna Sánchez MD Unavailable Unavailable KipVinod lamar MD Unavailable Unavailab le KipVinod MD Unavailable Unavailab le KipVinod MD Unavailable Unavailab le KipVinod MD Unavailable Unavailab le KipVinod MD Unavailable Unavailab le KipVinod MD Unavailable Unavailab le KipVinod MD Unavailable Unavailab le KipVinod MD Unavailable Unavailab le KipVinod MD Unavailable Unavailab le KipVinod MD Unavailable Unavailab le KipVinod MD Unavailable Unavailab le KipVinod MD Unavailable Unavailab le KipVinod MD Unavailable Unavailab le KipVinod MD Unavailable Unavailab le KipVinod MD Unavailable Unavailab le KipVinod MD Unavailable Unavailab le KipVinod MD Unavailable Unavailab le KipVinod MD Unavailable Unavailab le KipVinod MD Unavailable Unavailab le KipVinod jensen MD Unavailable Unavailab le Kip, Vinod Taylor MD Unavailable Unavailab le Kip, Vinod Taylor MD Unavailable Unavailab le Kip, Vinod Taylor MD Unavailable Unavailab le Ikp, Vinod Taylor MD Unavailable Unavailab le Kip, Vinod Taylor MD Unavailable Unavailab le Kip, Vinod Taylor MD Unavailable Unavailab le Kip, Vinod Taylor MD Unavailable Unavailab le Kip, Vinod Taylor MD Unavailable Unavailab le Kip, Vinod Taylor MD Unavailable Unavailab le Kip, Vinod Taylor MD Unavailable Unavailab le Kip, Vinod Taylor MD Unavailable Unavailab le Kip, Vinod Taylor MD Unavailable Unavailab le Kip, Vinod Taylor MD Unavailable Unavailab le Kip, Vinod Taylor MD Unavailable Unavailab le Kip, Vinod Taylor MD Unavailable Unavailab le Kip, Vinod Taylor MD Unavailable Unavailab le Kip, Vinod Taylor MD Unavailable Unavailab le Kip, Vinod Taylor MD Unavailable Unavailab le Kip, Vinod Taylor MD Unavailable Unavailab le Kip, Vinod Taylor MD Unavailable Unavailab le Kip, Vinod Taylor MD Unavailable Unavailab le Ikp, Vinod Taylor MD Unavailable Unavailab le Kip, Vinod Taylor MD Unavailable Unavailab le Kip, Vinod Taylor MD Unavailable Unavailab le Kip, Vinod Taylor MD Unavailable Unavailab le Kip, Vinod Taylor MD Unavailable Unavailab le Kip, Vinod Taylor MD Unavailable Unavailab le Kip, Vinod Taylor MD Unavailable Unavailab le Kip, Vinod Taylor MD Unavailable Unavailab le Kip, Vinod Taylor MD Unavailable Unavailab le Kip, Vinod Taylor MD Unavailable Unavailab le Kip, Vinod Taylor MD Unavailable Unavailab le Kip, Vinod Taylor MD Unavailable Unavailab le Kip, Vinod Taylor MD Unavailable Unavailab le Kip, Vinod Taylor MD Unavailable Unavailab le Kip, Vinod Taylor MD Unavailable Unavailab le Kip, Vinod Taylor MD Unavailable Unavailab le Kip, Vinod Taylor MD Unavailable Unavailab le Kip, Vinod Taylor MD Unavailable Unavailab le Kip, Vinod Taylor MD Unavailable Unavailab le Kip, Vinod Taylor MD Unavailable Unavailab le Kip, Vinod Taylor MD Unavailable Unavailab le Kip, Vinod Taylor MD Unavailable Unavailab le Kip, Vinod Taylor MD Unavailable Unavailab le Kip, Vinod Taylor MD Unavailable Unavailab le Kip, Vinod Taylor MD Unavailable Unavailab le Kip, Vinod Taylor MD Unavailable Unavailab le Kip, Vinod Taylor MD Unavailable Unavailab le Kip, Vinod Taylor MD Unavailable Unavailab le Kip, Vinod Taylor MD Unavailable Unavailab le Kip, Vinod Taylor MD Unavailable Unavailab le Kip, Vinod Taylor MD Unavailable Unavailab le Kip, Vinod Taylor MD Unavailable Unavailab le Kip, Vinod Taylor MD Unavailable Unavailab le Kip, Vinod Taylor MD Unavailable Unavailab le Kip, Vinod Taylor MD Unavailable Unavailab le Ikp, Vinod Taylor MD Unavailable Unavailab le Kip, Vinod Taylor MD Unavailable Unavailab le Kip, Vinod Taylor MD Unavailable Unavailab le Kip, Vinod Taylor MD Unavailable Unavailab le Kip, Vinod Taylor MD Unavailable Unavailab le Kip, Vinod Taylor MD Unavailable Unavailab le Kip, Vinod Taylor MD Unavailable Unavailab le Kip, Vinod Taylor MD Unavailable Unavailab le Kip, Vinod Taylor MD Unavailable Unavailab le Kip, Vinod Taylor MD Unavailable Unavailab le Kip, Vinod Taylor MD Unavailable Unavailab le Kip, Vinod Taylor MD Unavailable Unavailab le Kip, Vinod Taylor MD Unavailable Unavailab le Kip, Vinod Taylor MD Unavailable Unavailab le Kip, Vinod Taylor MD Unavailable Unavailab le Kip, Vinod Taylor MD Unavailable Unavailab le Kip, Vinod Taylor MD Unavailable Unavailab le Kip, Vinod Taylor MD Unavailable Unavailab le Kip, Vinod Taylor MD Unavailable Unavailab le Kip, Vinod Taylor MD Unavailable Unavailab le Kip, Vinod Taylor MD Unavailable Unavailab le Kip, Vinod Taylor MD Unavailable Unavailab le Kip, Vinod Taylor MD Unavailable Unavailab le Kip, Vinod Taylor MD Unavailable Unavailab le Kip, Vinod Taylor MD Unavailable Unavailab le Kip, Vinod Taylor MD Unavailable Unavailab le CORDELL, MARLENE ARGUETA Unavailable Unavailable CORDELL, MARLENE ARGUETA Unavailable Unavailable CORDELL, MARLENE ARGUETA Unavailable Unavailable CORDELL, MARLENE ARGUETA Unavailable Unavailable CORDELL, MARLENE ARGUETA Unavailable Unavailable CORDELL, MARLENE ARGUETA Unavailable Unavailable CORDELL, MARLENE ARGUETA Unavailable Unavailable CORDELL, MARLENE ARGUETA Unavailable Unavailable CORDELL, MARLENE ARGUETA Unavailable Unavailable CORDELL, MARLENE ARGUETA Unavailable Unavailable CORDELL, MARLENE ARGUETA Unavailable Unavailable CORDELL, MARLENE ARGUETA Unavailable Unavailable CORDELL, MARLENE ARGUETA Unavailable Unavailable CORDELL, MARLENE ARGUETA Unavailable Unavailable CORDELL, MARLENE ARGUETA Unavailable Unavailable CORDELL, MARLENE ARGUETA Unavailable Unavailable CORDELL, MARLENE ARGUETA Unavailable Unavailable CORDELL, MARLENE ARGUETA Unavailable Unavailable CORDELL, MARLENE ARGUETA Unavailable Unavailable CORDELL, MARLENE ARGUETA Unavailable Unavailable CORDELL, MARLENE ARGUETA Unavailable Unavailable CORDELL, MARLENE ARGUETA Unavailable Unavailable CORDELL, MARLENE ARGUETA Unavailable Unavailable CORDELL, MARLENE ARGUETA Unavailable Unavailable CORDELL, MARLENE ARGUETA Unavailable Unavailable CORDELL, MARLENE ARGUETA Unavailable Unavailable CORDELL, MARLENE ARGUETA Unavailable Unavailable CORDELL, MARLENE ARGUETA Unavailable Unavailable CORDELL, MARLENE ARGUETA Unavailable Unavailable CORDELL, MARLENE ARGUETA Unavailable Unavailable CORDELL, MARLENE ARGUETA Unavailable Unavailable CORDELL, MARLENE ARGUETA Unavailable Unavailable CORDELL, MARLENE ARGUETA Unavailable Unavailable CORDELL, MARLENE ARGUETA Unavailable Unavailable CORDELL, MARLENE ARGUETA Unavailable Unavailable CORDELL, MARLENE ARGUETA Unavailable Unavailable CORDELL, MARLENE ARGUETA Unavailable Unavailable CORDELL, MARLENE ARGUETA Unavailable Unavailable CORDELL, MARLENE ARGUETA Unavailable Unavailable CORDELL, MARLENE ARGUETA Unavailable Unavailable CORDELL, MARLENE ARGUETA Unavailable Unavailable CORDELL, MARLENE ARGUETA Unavailable Unavailable CORDELL, MARLENE ARGUETA Unavailable Unavailable PICKERAL JR, J WILLI PA-C Unavailable Unavailable PICKERAL JR, J WILLI PA-C Unavailable Unavailable PICKERAL JR, J WILLI PA-C Unavailable Unavailable PICKERAL JR, J WILLI PA-C Unavailable Unavailable PICKERAL JR, J WILLI PA-C Unavailable Unavailable PICKERAL JR, J WILLI PA-C Unavailable Unavailable PICKERAL JR, J WILLI PA-C Unavailable Unavailable PICKERAL JR, J WILLI PA-C Unavailable Unavailable PICKERAL JR, J WILLI PA-C Unavailable Unavailable PICKERAL JR, J WILLI PA-C Unavailable Unavailable PICKERAL JR, J WILLI PA-C Unavailable Unavailable PICKERAL JR, J WILLI PA-C Unavailable Unavailable PICKERAL JR, J WILLI PA-C Unavailable Unavailable PICKERAL JR, J WILLI PA-C Unavailable Unavailable PICKERAL JR, J WILLI PA-C Unavailable Unavailable PICKERAL JR, J WILLI PA-C Unavailable Unavailable PICKERAL JR, J WILLI PA-C Unavailable Unavailable PICKERAL JR, J WILLI PA-C Unavailable Unavailable PICKERAL JR, J WILLI PA-C Unavailable Unavailable PICKERAL JR, J WILLI PA-C Unavailable Unavailable PICKERAL JR, J WILLI PA-C Unavailable Unavailable PICKERAL JR, J WILLI PA-C Unavailable Unavailable PICKERAL JR, J WILLI PA-C Unavailable Unavailable PICKERAL JR, J WILLI PA-C Unavailable Unavailable PICKERAL JR, J WILLI PA-C Unavailable Unavailable PICKERAL JR, J WILLI PA-C Unavailable Unavailable PICKERAL JR, J WILLI PA-C Unavailable Unavailable Kiet MAGANA MD Unavailable Unavailable Kiet MAGANA MD Unavailable Unavailable Kiet MAGANA MD Unavailable Unavailable Kiet MAGANA MD Unavailable Unavailable Kiet MAGANA MD Unavailable Unavailable Kiet MAGANA MD Unavailable Unavailable Kiet MAGANA MD Unavailable Unavailable Kiet MAGANA MD Unavailable Unavailable Kiet MAGANA MD Unavailable Unavailable Kiet MAGANA MD Unavailable Unavailable Kiet MAGANA MD Unavailable Unavailable Kiet MAGANA MD Unavailable Unavailable Kiet MAGANA MD Unavailable Unavailable Kiet MAGANA MD Unavailable Unavailable Kiet MAGANA MD Unavailable Unavailable Kiet MAGANA MD Unavailable Unavailable Kiet MAGANA MD Unavailable Unavailable Kiet MAGANA MD Unavailable Unavailable Kiet MAGANA MD Unavailable Unavailable Kiet MAGANA MD Unavailable Unavailable CHINO, Kiet BINGHAM MD Unavailable Unavailable CHINO, Kiet BINGHAM MD Unavailable Unavailable CHINO, Kiet BINGHAM MD Unavailable Unavailable CHINO, Kiet BINGHAM MD Unavailable Unavailable CHINO, Kiet BINGHAM MD Unavailable Unavailable CHINO, Kiet BINGHAM MD Unavailable Unavailable CHINO, Kiet BINGHAM MD Unavailable Unavailable CHINO, Kiet BINGHAM MD Unavailable Unavailable CHINO, Kiet BINGHAM MD Unavailable Unavailable CHINO, Kiet BINGHAM MD Unavailable Unavailable CHINO, Kiet BINGHAM MD Unavailable Unavailable CHINO, Kiet BINGHAM MD Unavailable Unavailable CHINO, Kiet BINGHAM MD Unavailable Unavailable CHINO, Kiet BINGHAM MD Unavailable Unavailable CHINO, Kiet BINGHAM MD Unavailable Unavailable CHINO, Kiet BINGHAM MD Unavailable Unavailable CHINO, Kiet BINGHAM MD Unavailable Unavailable CHINO, Kiet BINGHAM MD Unavailable Unavailable CHINO, Kiet BINGHAM MD Unavailable Unavailable CHINO, Kiet BINGHAM MD Unavailable Unavailable CHINO, Kiet BINGHAM MD Unavailable Unavailable CHINO, Kiet BINGHAM MD Unavailable Unavailable CHINO, Kiet BINGHAM MD Unavailable Unavailable CHINO, Kiet BINGHAM MD Unavailable Unavailable CHINO, Kiet BINGHAM MD Unavailable Unavailable CHINO, Kiet BINGHAM MD Unavailable Unavailable CHINO, Kiet BINGHAM MD Unavailable Unavailable CHINO, Kiet BINGHAM MD Unavailable Unavailable CHINO, Kiet BINGHAM MD Unavailable Unavailable CHINO, Kiet BINGHAM MD Unavailable Unavailable CHINO, Kiet BINGHAM MD Unavailable Unavailable CHINO, Kiet BINGHAM MD Unavailable Unavailable CHINO, Kiet BINGHAM MD Unavailable Unavailable CHINO, Kiet BINGHAM MD Unavailable Unavailable CHINO, Kiet BINGHAM MD Unavailable Unavailable CHINO, Kiet BINGHAM MD Unavailable Unavailable CHINO, Kiet BINGHAM MD Unavailable Unavailable CHINO, Kiet BINGHAM MD Unavailable Unavailable CHINO, Kiet BINGHAM MD Unavailable Unavailable CHINO, Kiet BINGHAM MD Unavailable Unavailable CHINO, Kiet BINGHAM MD Unavailable Unavailable CHINO, Kiet BINGHAM MD Unavailable Unavailable CHINO, Kiet BINGHAM MD Unavailable Unavailable CHINO, Kiet BINGHAM MD Unavailable Unavailable CHINO, Kiet BINGHAM MD Unavailable Unavailable CHINO, Kiet BINGHAM MD Unavailable Unavailable CHINO, Kiet BINGHAM MD Unavailable Unavailable CHINO, Kiet BINGHAM MD Unavailable Unavailable CHINO, Kiet BINGHAM MD Unavailable Unavailable CHINO, Kiet BINGHAM MD Unavailable Unavailable CHINO, Kiet BINGHAM MD Unavailable Unavailable CHINO, Kiet BINGHAM MD Unavailable Unavailable CHINO, Kiet BINGHAM MD Unavailable Unavailable CHINO, Kiet BINGHAM MD Unavailable Unavailable CHINO, Kiet BINGHAM MD Unavailable Unavailable CHINO, Kiet BINGHAM MD Unavailable Unavailable CHINO, Kiet BINGHAM MD Unavailable Unavailable CHINO, Kiet BINGHAM MD Unavailable Unavailable CHINO, Kiet BINGHAM MD Unavailable Unavailable CHINO, Kiet BINGHAM MD Unavailable Unavailable CHINO, Kiet BINGHAM MD Unavailable Unavailable CHINO, Kiet BINGHAM MD Unavailable Unavailable CHINO, Kiet BINGHAM MD Unavailable Unavailable CHINO, Kiet BINGHAM MD Unavailable Unavailable CHINO, Kiet BINGHAM MD Unavailable Unavailable CHINO, Kiet BINGHAM MD Unavailable Unavailable CHINO, Kiet BINGHAM MD Unavailable Unavailable CHINO, Kiet BINGHAM MD Unavailable Unavailable CHINO, Kiet BINGHAM MD Unavailable Unavailable CHINO, Kiet BINGHAM MD Unavailable Unavailable CHINO, Kiet BINGHAM MD Unavailable Unavailable VELIZ, C REX PA Unavailable Unavailable VELIZ, C REX PA Unavailable Unavailable VELIZ, C REX PA Unavailable Unavailable VELIZ, C REX PA Unavailable Unavailable VELIZ, C REX PA Unavailable Unavailable VELIZ, C REX PA Unavailable Unavailable VELIZ, C REX PA Unavailable Unavailable VELIZ, C REX PA Unavailable Unavailable VELIZ, C REX PA Unavailable Unavailable VELIZ, C REX PA Unavailable Unavailable VELIZ, C REX PA Unavailable Unavailable VELIZ, C REX PA Unavailable Unavailable VELIZ, C REX PA Unavailable Unavailable VELIZ, C REX PA Unavailable Unavailable VELIZ, C REX PA Unavailable Unavailable VELIZ, C REX PA Unavailable Unavailable VELIZ, C REX PA Unavailable Unavailable VELIZ, C REX PA Unavailable Unavailable VELIZ, C REX PA Unavailable Unavailable VELIZ, C REX PA Unavailable Unavailable VELIZ, C REX PA Unavailable Unavailable VELIZ, C REX PA Unavailable Unavailable VELIZ, C REX PA Unavailable Unavailable VELIZ, C REX PA Unavailable Unavailable VELIZ, C REX PA Unavailable Unavailable VELIZ, C REX PA Unavailable Unavailable VELIZ, C REX PA Unavailable Unavailable VELIZ, C REX PA Unavailable Unavailable VELIZ, C REX PA Unavailable Unavailable VELIZ, C REX PA Unavailable Unavailable VELIZ, C REX PA Unavailable Unavailable VELIZ, C REX PA Unavailable Unavailable VELIZ, C REX PA Unavailable Unavailable VELIZ, C REX PA Unavailable Unavailable VELIZ, C REX PA Unavailable Unavailable VELIZ, C REX PA Unavailable Unavailable VELIZ, C REX PA Unavailable Unavailable VELIZ, C REX PA Unavailable Unavailable VELIZ, C REX PA Unavailable Unavailable VELIZ, C REX PA Unavailable Unavailable VELIZ, C REX PA Unavailable Unavailable HANIFIN, M RAMONITA PA Unavailable Unavailable HANIFIN, M RAMONITA PA Unavailable Unavailable HANIFIN, M RAMONITA PA Unavailable Unavailable HANIFIN, M RAMONITA PA Unavailable Unavailable HANIFIN, M RAMONITA PA Unavailable Unavailable HANIFIN, M RAMONITA PA Unavailable Unavailable HANIFIN, M RAMONITA PA Unavailable Unavailable HANIFIN, M RAMONITA PA Unavailable Unavailable HANIFIN, M RAMONITA PA Unavailable Unavailable HANIFIN, M RAMONITA PA Unavailable Unavailable HANIFIN, M RAMONITA PA Unavailable Unavailable HANIFIN, M RAMONITA PA Unavailable Unavailable HANIFIN, M RAMONITA PA Unavailable Unavailable HANIFIN, M RAMONITA PA Unavailable Unavailable HANIFIN, M RAMONITA PA Unavailable Unavailable HANIFIN, M RAMONITA PA Unavailable Unavailable HANIFIN, M RAMONITA PA Unavailable Unavailable HANIFIN, M RAMONITA PA Unavailable Unavailable HANIFIN, M RAMONITA PA Unavailable Unavailable HANIFIN, M RAMONITA PA Unavailable Unavailable HANIFIN, M RAMONITA PA Unavailable Unavailable HANIFIN, M RAMONITA PA Unavailable Unavailable HANIFIN, M RAMONITA PA Unavailable Unavailable HANIFIN, M RAMONITA PA Unavailable Unavailable HANIFIN, M RAMONITA PA Unavailable Unavailable HANIFIN, M RAMONITA PA Unavailable Unavailable HANIFIN, M RAMONITA PA Unavailable Unavailable HANIFIN, M RAMONITA PA Unavailable Unavailable HANIFIN, M RAMONITA PA Unavailable Unavailable HANIFIN, M RAMONITA PA Unavailable Unavailable HANIFIN, M RAMONITA PA Unavailable Unavailable HANIFIN, M RAMONITA PA Unavailable Unavailable HANIFIN, M RAMONITA PA Unavailable Unavailable HANIFIN, M RAMONITA PA Unavailable Unavailable HANIFIN, M RAMONITA PA Unavailable Unavailable HANIFIN, M RAMONITA PA Unavailable Unavailable HANIFIN, M RAMONITA PA Unavailable Unavailable HANIFIN, M RAMONITA PA Unavailable Unavailable HANIFIN, M RAMONITA PA Unavailable Unavailable HANIFIN, M RAMONITA PA Unavailable Unavailable HANIFIN, M RAMONITA PA Unavailable Unavailable HANIFIN, M RAMONITA PA Unavailable Unavailable HANIFIN, M RAMONITA PA Unavailable Unavailable HANIFIN, M RAMONITA PA Unavailable Unavailable HANIFIN, M RAMONITA PA Unavailable Unavailable HANIFIN, M RAMONITA PA Unavailable Unavailable HANIFIN, M RAMONITA PA Unavailable Unavailable HANIFIN, M RAMONITA PA Unavailable Unavailable HANIFIN, M RAMONITA PA Unavailable Unavailable HANIFIN, M RAMONITA PA Unavailable Unavailable HANIFIN, M RAMONITA PA Unavailable Unavailable HANIFIN, M RAMONITA PA Unavailable Unavailable HANIFIN, M RAMONITA PA Unavailable Unavailable HANIFIN, M RAMONITA PA Unavailable Unavailable Rayna Sánchez MD Unavailable Unavailable Rayna Sánchez MD Unavailable Unavailable Rayna Sánchez MD Unavailable Unavailable Rayna Sánchez MD Unavailable Unavailable Rayna Sánchez MD Unavailable Unavailable Rayna Sánchez MD Unavailable Unavailable Rayna Sánchez MD Unavailable Unavailable Rayna Sánchez MD Unavailable Unavailable Rayna Sánchez MD Unavailable Unavailable Rayna Sánchez MD Unavailable Unavailable Rayna Sánchez MD Unavailable Unavailable Rayna Sánchez MD Unavailable Unavailable Rayna Sánchez MD Unavailable Unavailable Rayna Sánchez MD Unavailable Unavailable Rayna Sánchez MD Unavailable Unavailable Rayna Sánchez MD Unavailable Unavailable Rayna Sánchez MD Unavailable Unavailable Rayna Sánchez MD Unavailable Unavailable Rayna Sánchez MD Unavailable Unavailable Rayna Sánchez MD Unavailable Unavailable Rayna Sánchez MD Unavailable Unavailable Rayna Sánchez MD Unavailable Unavailable Rayna Sánchez MD Unavailable Unavailable Rayna Sánchez MD Unavailable Unavailable Rayna Sánchez MD Unavailable Unavailable Rayna Sánchez MD Unavailable Unavailable Rayna Sánchez MD Unavailable Unavailable Rayna Sánchez MD Unavailable Unavailable Rayna Sánchez MD Unavailable Unavailable Rayna Sánchez MD Unavailable Unavailable Rayna Sánchez MD Unavailable Unavailable Rayna Sánchez MD Unavailable Unavailable Rayna Sánchez MD Unavailable Unavailable Rayna Sánchez MD Unavailable Unavailable Rayna Sánchez MD Unavailable Unavailable Rayna Sánchez MD Unavailable Unavailable Rayna Sánchez MD Unavailable Unavailable Rayna Sánchez MD Unavailable Unavailable Rayna Sánchez MD Unavailable Unavailable Rayna Sánchez MD Unavailable Unavailable Rayna Sánchez MD Unavailable Unavailable Rayna Sánchez MD Unavailable Unavailable Rayna Sánchez MD Unavailable Unavailable Rayna Sánchez MD Unavailable Unavailable Rayna Sánchez MD Unavailable Unavailable Rayna Sánchez MD Unavailable Unavailable Rayna Sánchez MD Unavailable Unavailable Rayna Sánchez MD Unavailable Unavailable Rayna Sánchez MD Unavailable Unavailable Rayna Sánchez MD Unavailable Unavailable Rayna Sánchez MD Unavailable Unavailable Rayna Sánchez MD Unavailable Unavailable Rayna Sánchez MD Unavailable Unavailable Rayna Sánchez MD Unavailable Unavailable Rayna Sánchez MD Unavailable Unavailable Rayna Sánchez MD Unavailable Unavailable Rayna Sánchez MD Unavailable Unavailable Rayna Sánchez MD Unavailable Unavailable Rayna Sánchez MD Unavailable Unavailable Rayna Sánchez MD Unavailable Unavailable Rayna Sánchez MD Unavailable Unavailable Rayna Sánchez MD Unavailable Unavailable Rayna Sánchez MD Unavailable Unavailable Rayna Sánchez MD Unavailable Unavailable Rayna Sánchez MD Unavailable Unavailable Rayna Sánchez MD Unavailable Unavailable Gonzalo F Neo ARGUETA Unavailable Unavailable Rayna Sánchez MD Unavailable Unavailable Gonzalo F Neo ARGUETA Unavailable Unavailable Gonzalo F Neo ARGUETA Unavailable Unavailable Gonzalo F Neo ARGUETA Unavailable Unavailable Gonzalo F Neo ARGUETA Unavailable Unavailable Gonzalo F Neo ARGUETA Unavailable Unavailable Gonzalo F Neo ARGUETA Unavailable Unavailable Gonzalo F Neo ARGUETA Unavailable Unavailable Gonzalo F Neo ARGUETA Unavailable Unavailable Gonzalo F Neo ARGUETA Unavailable Unavailable Campanaro, Mare Cristela PA Unavailable Unavailable Campanaro, Mare Cristela PA Unavailable Unavailable Campanaro, Mare Cristela PA Unavailable Unavailable Campanaro, Mare Cristela PA Unavailable Unavailable Campanaro, Mare Cristela PA Unavailable Unavailable Campanaro, Mare Cristela PA Unavailable Unavailable Campanaro, Mare Cristela PA Unavailable Unavailable Campanaro, Mare Cristela PA Unavailable Unavailable Campanaro, Mare Cristela PA Unavailable Unavailable Campanaro, Mare Cristela PA Unavailable Unavailable Campanaro, Mare Cristela PA Unavailable Unavailable Campanaro, Mare Cristela PA Unavailable Unavailable Campanaro, Mare Cristela PA Unavailable Unavailable Campanaro, Mare Cristela PA Unavailable Unavailable Campanaro, Mare Cristela PA Unavailable Unavailable Campanaro, Mare Cristela PA Unavailable Unavailable Campanaro, Mare Cristela PA Unavailable Unavailable KipVinod MD Unavailable Unavailab le KipVinod MD Unavailable Unavailab le KipVinod MD Unavailable Unavailab le KipVinod MD Unavailable Unavailab le KipVinod MD Unavailable Unavailab le KipVinod MD Unavailable Unavailab le KipVinod jensen MD Unavailable Unavailab le KipVinod MD Unavailable Unavailab le KipVinod MD Unavailable Unavailab le Kip, Vinod Taylor MD Unavailable Unavailab le Kip, Vinod Taylor MD Unavailable Unavailab le Kip, Vinod Taylor MD Unavailable Unavailab le Kip, Vinod Taylor MD Unavailable Unavailab le Kip, Vinod Taylor MD Unavailable Unavailab le Kip, Vinod Taylor MD Unavailable Unavailab le Kip, Vinod Taylor MD Unavailable Unavailab le Kip, Vinod Taylor MD Unavailable Unavailab le Kip, Vinod Taylor MD Unavailable Unavailab le Kip, Vinod Taylor MD Unavailable Unavailab le Kip, Vinod Taylor MD Unavailable Unavailab le Kip, Vinod Taylor MD Unavailable Unavailab le Kip, Vinod Taylor MD Unavailable Unavailab le Kip, Vinod Taylor MD Unavailable Unavailab le Kip, Vinod Taylor MD Unavailable Unavailab le Kip, Vinod Taylor MD Unavailable Unavailab le Kip, Vinod Taylor MD Unavailable Unavailab le Kip, Vinod Taylor MD Unavailable Unavailab le Kip, Vinod Taylor MD Unavailable Unavailab le Kip, Vinod Taylor MD Unavailable Unavailab le Kip, Vinod Taylor MD Unavailable Unavailab le Kip, Vinod Taylor MD Unavailable Unavailab le Kip, Vinod Taylor MD Unavailable Unavailab le Kip, Vinod Taylor MD Unavailable Unavailab le Kip, Vinod Taylor MD Unavailable Unavailab le Kip, Vinod Taylor MD Unavailable Unavailab le Kip, Vinod Taylor MD Unavailable Unavailab le Kip, Vinod Taylor MD Unavailable Unavailab le Kip, Vinod Taylor MD Unavailable Unavailab le Kip, Vinod Taylor MD Unavailable Unavailab le Kip, Vinod Taylor MD Unavailable Unavailab le Kip, Vinod Taylor MD Unavailable Unavailab le Kip, Vinod Taylor MD Unavailable Unavailab le Kip, Vinod Taylor MD Unavailable Unavailab le Kip, Vinod Taylor MD Unavailable Unavailab le Kip, Vinod Taylor MD Unavailable Unavailab le Kip, Vinod Taylor MD Unavailable Unavailab le Kip, Vinod Taylor MD Unavailable Unavailab le Kip, Vinod Taylor MD Unavailable Unavailab le Kip, Vinod Taylor MD Unavailable Unavailab le Kip, Vinod Taylor MD Unavailable Unavailab le Kip, Vinod Taylor MD Unavailable Unavailab le Kip, Vinod Taylor MD Unavailable Unavailab le Kip, Vinod Taylor MD Unavailable Unavailab le Kip, Vinod Taylor MD Unavailable Unavailab le Kip, Vinod Taylor MD Unavailable Unavailab le Kip, Vinod Taylor MD Unavailable Unavailab le Kip, Vinod Taylor MD Unavailable Unavailab le Kip, Vinod Taylor MD Unavailable Unavailab le Kip, Vinod Taylor MD Unavailable Unavailab le Kip, Vinod Taylor MD Unavailable Unavailab le Kip, Vinod Taylor MD Unavailable Unavailab le Kip, Vinod Taylor MD Unavailable Unavailab le Kip, Vinod Taylor MD Unavailable Unavailab le Kip, Vinod Taylor MD Unavailable Unavailab le Kip, Vinod Taylor MD Unavailable Unavailab le Kip, Vinod Taylor MD Unavailable Unavailab le Kip, Vinod Taylor MD Unavailable Unavailab le Kip, Vinod Taylor MD Unavailable Unavailab le Kip, Vinod Taylor MD Unavailable Unavailab le Kip, Vinod Taylor MD Unavailable Unavailab le Kip, Vinod Taylor MD Unavailable Unavailab le Kip, Vinod Taylor MD Unavailable Unavailab le Kip, Vinod Taylor MD Unavailable Unavailab le Kip, Vinod Taylor MD Unavailable Unavailab le Kip, Vinod Taylor MD Unavailable Unavailab le Kip, Vinod Taylor MD Unavailable Unavailab le Kip, Vinod Taylor MD Unavailable Unavailab le Kip, Vinod Taylor MD Unavailable Unavailab le Kip, Vinod Taylor MD Unavailable Unavailab le Kip, Vinod Taylor MD Unavailable Unavailab le Kip, Christopher Milagros MD Unavailable Unavailab le Kip, Vinod Taylor MD Unavailable Unavailab le Kip, Vinod Taylor MD Unavailable Unavailab le Kip, Vinod Taylor MD Unavailable Unavailab le Kip, Vinod Taylor MD Unavailable Unavailab le Kip, Vinod Taylor MD Unavailable Unavailab le Kip, Vinod Taylor MD Unavailable Unavailab le Kip, Vinod Taylor MD Unavailable Unavailab le Kip, Vinod Taylor MD Unavailable Unavailab le Kip, Vinod Taylor MD Unavailable Unavailab le Kip, Vinod Taylor MD Unavailable Unavailab le Kip, Vinod Taylor MD Unavailable Unavailab le Kip, Vinod Taylor MD Unavailable Unavailab le Kip, Vinod Taylor MD Unavailable Unavailab le Kip, Vinod Taylor MD Unavailable Unavailab le Kip, Vinod Taylor MD Unavailable Unavailab le Kip, Vinod Taylor MD Unavailable Unavailab le Kip, Vinod Taylor MD Unavailable Unavailab le Kip, Vinod Taylor MD Unavailable Unavailab le Kip, Vinod Taylor MD Unavailable Unavailab le Kip, Vinod Taylor MD Unavailable Unavailab le Kip, Vinod Taylor MD Unavailable Unavailab le Kiet Almaraz JR, MD Unavailable Unavailable Kiet Almaraz JR, MD Unavailable Unavailable Kiet Almaraz JR, MD Unavailable Unavailable Kiet Almaraz JR, MD Unavailable Unavailable Kiet Almaraz JR, MD Unavailable Unavailable Kiet Almaraz JR, MD Unavailable Unavailable Kiet Almaraz JR, MD Unavailable Unavailable Kiet Almaraz JR, MD Unavailable Unavailable Kiet Almaraz JR, MD Unavailable Unavailable Kiet Almaraz JR, MD Unavailable Unavailable Kiet Almaraz JR, MD Unavailable Unavailable Kiet Almaraz JR, MD Unavailable Unavailable Kiet Almaraz JR, MD Unavailable Unavailable Kiet Almaraz JR, MD Unavailable Unavailable Kiet Almaraz JR, MD Unavailable Unavailable Kiet Almaraz JR, MD Unavailable Unavailable Kiet Almaraz JR, MD Unavailable Unavailable Kiet Almaraz JR, MD Unavailable Unavailable Rufina JR, J Morgan MD Unavailable Unavailable Rufina JR, J Morgan MD Unavailable Unavailable Rufina JR, J Morgan MD Unavailable Unavailable Rufina JR, J Morgan MD Unavailable Unavailable Rufina JR, J Morgan MD Unavailable Unavailable Rufina JR, J Morgan MD Unavailable Unavailable Rufina JR, J Morgan MD Unavailable Unavailable Rufina JR, J Morgan MD Unavailable Unavailable Rufina JR, J Morgan MD Unavailable Unavailable Rufina JR, J Morgan MD Unavailable Unavailable Rufina JR, J Morgan MD Unavailable Unavailable Rufina JR, J Morgan MD Unavailable Unavailable Rufina JR, J Morgan MD Unavailable Unavailable Rufina JR, J Morgan MD Unavailable Unavailable Rufina JR, J Morgan MD Unavailable Unavailable Rufina JR, J Morgan MD Unavailable Unavailable Rufina JR, J Morgan MD Unavailable Unavailable Rufina JR, J Morgan MD Unavailable Unavailable Rufina JR, J Morgan MD Unavailable Unavailable Rufina JR, J Morgan MD Unavailable Unavailable Rufina JR, J Morgan MD Unavailable Unavailable Rufina JR, J Morgan MD Unavailable Unavailable Rufina JR, J Morgan MD Unavailable Unavailable Rufina JR, J Morgan MD Unavailable Unavailable Rufina JR, J Morgan MD Unavailable Unavailable Rufina JR, J Morgan MD Unavailable Unavailable Rufina JR, J Morgan MD Unavailable Unavailable Rufina JR, J Morgan MD Unavailable Unavailable Rufina JR, J Morgan MD Unavailable Unavailable Rufina JR, J Morgan MD Unavailable Unavailable Rufina JR, J Morgan MD Unavailable Unavailable Rufina JR, J Morgan MD Unavailable Unavailable Rufina JR, J Morgan MD Unavailable Unavailable Rufina JR, J Morgan MD Unavailable Unavailable Rufina JR, J Morgan MD Unavailable Unavailable Rufina JR, J Morgan MD Unavailable Unavailable Re-disclosure Warning The records that you are about to access may contain information from federally-assisted alcohol or drug abuse programs. If such information is present, then the following federally mandated warning applies: This information has been disclosed to you from records protected by federal confidentiality rules (42 CFR part 2). The federal rules prohibit you from making any further disclosure of this information unless further disclosure is expressly permitted by the written consent of the person to whom it pertains or as otherwise permitted by 42 CFR part 2. A general authorization for the release of medical or other information is NOT sufficient for this purpose. The Federal rules restrict any use of the information to criminally investigate or prosecute any alcohol or drug abuse patient.The records that you are about to access may contain highly sensitive health information, the redisclosure of which is protected by Article 27-F of the [facility] Public Health law. If you continue you may have access to information: Regarding HIV / AIDS; Provided by facilities licensed or operated by the [facility] Office of Mental Health; or Provided by the [facility] Office for People With Developmental Disabilities. If such information is present, then the following [facility] mandated warning applies: This information has been disclosed to you from confidential records which are protected by state law. State law prohibits you from making any further disclosure of this information without the specific written consent of the person to whom it pertains, or as otherwise permitted by law. Any unauthorized further disclosure in violation of state law may result in a fine or longterm sentence or both. A general authorization for the release of medical or other information is NOT sufficient authorization for further disc losure. Family History Family Member Name Family Member Gender Family Member Status Date o f Status Description Data Source(s) Unknown Unknown Problem [facility] ([facility], ) Unknown Male Problem [facility] ([facility] () Unknown Female Problem [facility] ([facility]) Unknown Female Problem [facility] ([facility]) Unknown Female Problem [facility] ([facility]) Encounters Encounter Providers Location Date Indications Data Source(s ) Outpatient Attender: Morgan Barnard/Jd/Adin/Charlene joshi 06/24/2021 10:00:00 AM EDT [facility] ([facility], ) Outpatient Attender: VICK MAGANA MDReferrer: MARLENE LANDA MD 06/22/2021 08:29:55 AM EDT [facility] Recurring Patient Referrer: MARLENE LANDA MD 06/19/2021 01: 35:32 PM EDT [facility] Outpatient Attender: Neo Villasenor 06/09 03:00:00 PM EDT [facility] ([facility] ) Office Visit Attender: MARLENE LANDA MD Main office - [facility] 06/02/2021 08:15:00 AM EDT [facility] ([facility] Outpatient Attender: RAMONITA Ribeiroerrer: Neo Sánchez MD 05/05/2021 02:51:47 PM EDT [facility] Outpatient Attender: VICK CORDONeferrer: Neo Boss 04/20/2021 12:00:35 PM EDT [facility] Outpatient Attender: Neo Villasenor 04/15 10:00:00 AM EDT [facility] ([facility] ) Recurring Patient Referrer: MARLENE LANDA MD 03/30/2021 07: 16:28 AM EDT [facility] Outpatient Attender: VICK Hernandezerrer: Neo Boss 03/23/2021 05:02:17 PM EDT [facility] Outpatient Attender: RAMONITA Ribeiroerrer: Neo Sánchez MD 03/05/2021 10:24:37 AM EDT [facility] Recurring Patient Referrer: MARLENE LANDA MD 03/03/2021 10: 03:02 AM EDT [facility] Recurring Patient Referrer: MARLENE LANDA MD 03/02/2021 02: 30:56 PM EDT [facility] Office Visit Attender: MARLENE LANDA MD Main office - [facility] 02/27/2021 08:00:00 AM EDT [facility] ([facility]) Outpatient Attender: MARLENE LANDA MD Main office - [facility] 02/24/2021 03:15:00 PM EDT [facility] ([facility]) Office Visit Attender: MARLENE LANDA MD Main office - [facility] 02/20/2021 09:45:00 AM EDT [facility] ([facility]) Outpatient Attender: Neo Villasenor 02/16 09:30:00 AM EDT [facility] ([facility] ) Outpatient Attender: Milagros Shin MDReferrer: Neo Sánchez MD 01/30/2021 09:53:12 PM EDT [facility] Recurring Patient Referrer: MARLENE LANDA MD 01/26/2021 09: 07:14 AM EDT [facility] Outpatient Attender: WILLI MOSER JR Grant Villasenor 0 01/23/2021 01:40:00 PM EDT [facility] ([facility] ) Outpatient Attender: Cristela elyy 01/14/2021 05:50:00 PM EDT [facility] ([facility] Outpatient Attender: REX Don: Neo Sánchez MD 12/01/2020 05:23:25 PM EST [facility] Outpatient Attender: Milagros CORDONeferrer: Neo Sánchez MD 10/21/2020 08:23:08 PM EST [facility] Outpatient Attender: Milagros Shin MDReferrer: Neo Sánchez MD 09/10/2020 12:44:41 PM EST [facility] Inpatient Attender: Milagros Shin MD 08/29/2020 06:30:33 AM EST [facility] [place] [facility] ( [facility] Healthcare facility) Attender: Milagros Shin MDAdmitter: Milagros Shin MDConsultant: Neo Sánchez MD 08/28/2020 05:2 2:00 AM EST - 08/29/2020 12:26:00 PM EST [facility] Inpatient Attender: Milagros Shin MDAdmitter: Milagros montalvo MD 08/28/2020 05:22:00 AM EST - 08/29/2020 12:26:00 PM EST BILATERAL SHOULDER PAIN (719.41) (M25.511,M25.512) [facility] BILATERAL SHOULDER PAIN (719.41) (M25.51 1,M25.512) Patient discharged. Inpatient Attender: 0000{ BREA 08/28/2020 05:22:00 AM E [facility] Outpatient Attender: REX Don: Neo Sánchez MD 08/25/2020 12:15:18 PM EST [facility] Outpatient CMP [facility] 08/25/2020 08:30:0 0 AM EST [facility] ([facility]) Outpatient Attender: Milagros Shin MD 08/19/2020 12:40:19 PM EST [facility] [place] [facility] Outpatient Attender: Milagros Shin MD 08/19/2020 11 :02:00 AM EST ELECTIVE RIGHT TOTAL SHOULDER ARTHROPLASTY [facility] ELECTIVE RIGHT TOTAL SHOULDER ARTHROPLAS TY Outpatient Attender: Neo Villasenor 08/18 09:00:00 AM EST [facility] ([facility] ) Recurring Patient Referrer: MARLENE LANDA MD 08/13/2020 01: 55:54 PM EST [facility] Outpatient Attender: Milagros Shin MDReferrer: Neo Sánchez MD 07/08/2020 08:42:38 PM EDT [facility] Recurring Patient Referrer: MARLENE LANDA MD 07/07/2020 09: 34:00 AM EDT [facility] Immunizations Vaccine Date Status Description Data Source(s) COVID-19 VACC, MRNA(PFIZER)/PF 07/08/2021 12:00:00 AM EDT completed [facility] COVID-19 VACCINE Pfizer 07/08/2021 12:00:00 AM EDT completed [facility] Vaccine Series Complete: YESThis Data wa s Submitted to [facility] Via [facility]. Pneumococcal conjugate PCV 13 02/16/2021 09:10:00 AM EDT completed [facility] ([facility]) COVID-19 VACCINE Pfizer 11/30/2020 12:00:00 AM EST completed [facility] Vaccine Series Complete: YESThis Data wa s Submitted to [facility] Via [facility]. COVID-19 VACCINE Pfizer 11/11/2020 12:00:00 AM EST completed [facility] Vaccine Series Complete: NOThis Data was Submitted to [facility] Via [facility]. This CVX code allows reporting of a vacc ination when formulation is unknown (for example, when recording a Influenza vaccination when noted on a vaccination card) 06/23/2020 11:47:00 AM EDT completed MEDEN T ([facility]) INFLUENZA VACCINE QUADRIVALENT (65 YR UP)/MF59 C.1/PF 06/23/2020 12:00:00 AM EDT completed [facility] Medications Medication Brand Name Start Date Product Form Dose Route Admi nistrative Instructions Pharmacy Instructions Status Indications Reaction Description Data Source(s) Acetaminophen 325 MG / Hydrocodone Bitartrate 5 MG [facility] Hydrocodone Bitartrate/Acetaminophen 07/14/2021 12:00:00 AM EDT ORAL completed [facility] ([facility] ) Acetaminophen 325 MG / Hydrocodone Bitartrate 5 MG [facility] Tablet 5-325 mg HYDROCODONE/ACETAMINOPHEN 07/14/2021 12:00:00 AM EDT tablet 14 TAKE 1-2 TABLETS BY MOUTH EVERY 6 HOURS NEEDED MAXIMUM DAILY DOSE = 6 TAKE 1-2 TABLETS BY MOUTH EVERY 6 HOURS NEEDED MAXIMUM DAILY DOSE = 6 SOLD: 07/14/2021 [facility] 20 mg 06/27/2021 12:00:00 AM EDT capsule,delayed release (DR/EC) 90 TAKE ONE CAPSULE BY MOUTH EVERY DAY NEEDED FOR GERD TAKE ONE CAPSULE BY MOUTH EVERY DAY NEEDED FOR GERD SOLD: 06/27/2021 [facility] Omeprazole 20 MG Delayed Release Oral Capsule Omeprazole 06/26/2021 12:00:00 AM EDT ORAL active [facility] 240 mcg/0.7 mL 06/23/2021 12:00:00 AM EDT syringe 0 INJECT DIRECTED INJECT DIRECTED SOLD: 06/23/2021 [facility] 500 mg 06/23/2021 12:00:00 AM EDT tablet 20 TAKE ONE TABLET BY MOUTH EVERY 12 HOURS FOR 10 DAYS TAKE ONE TABLET BY MOUTH EVERY 12 HOURS FOR 10 DAYS SO LD: 06/23/2021 [facility] 500 mg 05/02/2021 12:00:00 AM EDT tablet 90 TAKE ONE TABLET BY MOUTH EVERY DAY DIRECTED NEEDED TAKE ONE TABLET BY MOUTH EVERY DAY DI RECTED NEEDED SOLD: 05/07/2021 [facility] Acetaminophen 325 MG / Hydrocodone Bitartrate 5 MG Ora l Tablet 5-325 mg HYDROCODONE/ACETAMINOPHEN 04/17/2021 12:00:00 AM EDT tablet 42 TAKE ONE TABLET BY MOUTH EVERY 4 HOURS NEEDED FOR PAIN, MAXIMUM DAILY DOSE = 6 TAKE ONE TABLET BY MOUTH EVERY 4 HOURS NEEDED FOR PAIN, MAXIMUM DAILY DOSE = 6 SOLD: 04/19/2021 [facility] 600 mg 03/31/2021 12:00:00 AM EDT tablet 90 TAKE ONE TABLET BY MOUTH THREE TIMES A DAY DO NOT TAKE MORE THAN 3 TABLETS (1800MG) PER DAY MAXIMUM DAILY DOSE = 3 TAKE ONE TABLET BY MOUTH THREE TIMES A D AY DO NOT TAKE MORE THAN 3 TABLETS (1800MG) PER DAY MAXIMUM DAILY DOSE = 3 SOLD: 04/02/2021 [facility] Acetaminophen 300 MG / Codeine Phosphate 60 MG Oral Ta blet 300-60 mg ACETAMINOPHEN WITH CODEINE 03/30/2021 12:00:00 AM EDT tablet 28 TAKE 1 TABLET BY MOUTH EVERY 6 HOURS NEEDED FOR PAIN MAXIMUM DAILY DOSE = 4 TAKE 1 TABLET BY MOUTH EVERY 6 HOURS NEEDED FOR PAIN MAXIMUM DAILY DOSE = 4 SOLD: 04/02/2021 [facility] Acetaminophen 300 MG / Codeine Phosphate 60 MG Oral Ta blet 300-60 mg ACETAMINOPHEN WITH CODEINE 03/21/2021 12:00:00 AM EDT tablet 28 TAKE ONE TABLET BY MOUTH EVERY 6 HOURS NEEDED FOR PAIN MAXIMUM DAILY DOSE = 4 TABLETS TAKE ONE TABLET BY MOUTH EVERY 6 HOURS NEEDED FOR PAIN MAXIMUM DAILY DOSE = 4 TABLETS SOLD: 03/21/2021 [facility] 4 mg 03/03/2021 12:00:00 AM EDT tablets,dose pack 21 TAKE DIRECTED TAKE DIRECTED SOLD: 03/04/2021 [facility] 20 mg 02/24/2021 12:00:00 AM EDT tablet 20 TAKE 3 TABLETS BY MOUTH DAILY FOR 3 DAYS , TAKE 2 TABS. DAILY FOR 3 DAYS, 1 TAB. DAILY FOR 3 DAYS THEN 1/2 TAB. DAILY FOR 3 DAYS TAKE 3 TABLETS BY MOUTH DAILY FOR 3 DAYS , TAKE 2 TABS. DAILY FOR 3 DAYS, 1 TAB. DAILY FOR 3 DAYS THEN 1/2 TAB. DAILY FOR 3 DAYS SOLD: 02/24/2021 [facility] Prednisone 20 MG Oral Tablet Prednisone 02/24/2021 12:00:00 AM EDT ORAL active [facility] ([facility]) 300 mg 02/16/2021 12:00:00 AM EDT capsule 540 TAKE TWO CAPSULES BY MOUTH THREE TIMES A DAY TAKE TWO CAPSULES BY MOUTH THREE TIMES A DAY SOLD: [facility] Cephalexin 500 MG Oral Capsule CEPHALEXIN 01/15/2021 12:00:00 AM EDT capsule 14 TAKE ONE CAPSULE BY MOUTH TWICE A DAY TAKE ONE CAPSULE BY [facility] TWICE A DAY SOLD: 01/15/2021 [facility] 0.4 mg 01/09/2021 12:00:00 AM EDT capsule 30 TAKE ONE CAPSULE BY MOUTH EVERY DAY TAKE ONE CAPSULE BY MOUTH EVERY DAY SOLD: 07/08/2021 [facility] 0.4 mg 01/09/2021 12:00:00 AM EDT capsule 30 TAKE ONE CAPSULE BY MOUTH EVERY DAY TAKE ONE CAPSULE BY MOUTH EVERY DAY SOLD: 06/06/2021 [facility] 0.4 mg 01/09/2021 12:00:00 AM EDT capsule 30 TAKE ONE CAPSULE BY MOUTH EVERY DAY TAKE ONE CAPSULE BY MOUTH EVERY DAY SOLD: 04/09/2021 [facility] 0.4 mg 01/09/2021 12:00:00 AM EDT capsule 30 TAKE ONE CAPSULE BY MOUTH EVERY DAY TAKE ONE CAPSULE BY MOUTH EVERY DAY SOLD: 02/09/2021 [facility] 0.4 mg 01/09/2021 12:00:00 AM EDT capsule 30 TAKE ONE CAPSULE BY MOUTH EVERY DAY TAKE ONE CAPSULE BY MOUTH EVERY DAY SOLD: 01/12/2021 [facility] 0.4 mg 01/09/2021 12:00:00 AM EDT capsule 30 TAKE ONE CAPSULE BY MOUTH EVERY DAY TAKE ONE CAPSULE BY MOUTH EVERY DAY SOLD: 05/07/2021 [facility] 0.4 mg 01/09/2021 12:00:00 AM EDT capsule 30 TAKE ONE CAPSULE BY MOUTH EVERY DAY TAKE ONE CAPSULE BY MOUTH EVERY DAY SOLD: 03/09/2021 [facility] 500 mg 01/01/2021 12:00:00 AM EDT capsule 8 TAKE FOUR CAPSULES BY MOUTH 1 HOUR PRIOR TO DENTAL PROCEDURE TAKE FOUR CAPSULES BY MOUTH 1 HOUR PRIOR TO DENTAL PROCEDURE SOLD: 01/09/2021 [facility] 30 mg 12/30/2020 12:00:00 AM EDT capsule,delayed release (DR/EC) 30 TAKE ONE CAPSULE BY MOUTH EVERY DAY TAKE ONE CAPSULE BY MOUTH EVERY DAY SOLD: 12/30/2020 [facility] 30 mg 12/30/2020 12:00:00 AM EDT capsule,delayed release (DR/EC) 30 TAKE ONE CAPSULE BY MOUTH EVERY DAY TAKE ONE CAPSULE BY MOUTH EVERY DAY SOLD: 07/04/2021 [facility] 30 mg 12/30/2020 12:00:00 AM EDT capsule,delayed release (DR/EC) 30 TAKE ONE CAPSULE BY MOUTH EVERY DAY TAKE ONE CAPSULE BY MOUTH EVERY DAY SOLD: 06/02/2021 [facility] 30 mg 12/30/2020 12:00:00 AM EDT capsule,delayed release (DR/EC) 30 TAKE ONE CAPSULE BY MOUTH EVERY DAY TAKE ONE CAPSULE BY MOUTH EVERY DAY SOLD: 04/02/2021 [facility] 30 mg 12/30/2020 12:00:00 AM EDT capsule,delayed release (DR/EC) 30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 of motion and strengthening per protocol. Aggressive stretching is encouraged. Physical therapy renewal was provided if needed. The patient will return for follow-up in 6 weeks. Scribed by Mike Fischer on 10/21/2020 at 12:32 AM for Milagros Shin Signatures Electronically signed by : Mike Fischer MA; Oct 21 2020 12:32AM EST (Author) Electronically signed by : Milagros Shin M.D.; Oct 21 2020 8:23PM EST Name Value Range Interpretation Code Description Data Allie rce(s) Supporting Document(s) ID Date Data Source [id number] 10/08/2020 12:00:00 AM EST [facility] Name Value Range Interpretation Code Description Data Allie rce(s) Supporting Document(s) SARS-CoV2 Rapid Antigen [facility] This lab was ordered by [facility] and reported by [facility]. ID Date Data Source [id number] 09/10/2020 12:44:41 PM EST [facility] PCName: Corey ElderEnderOB: 1945Provider: Beth ShinS: 09/10/2020 Reason For VisitCorey Sandhu is here today for Right shoulder. Corey Sandhu is here for first post-op appointment. Surgery DOS: 08/28/2020. Surgery Description: Right total shoulder arthroplasty and open bicep tenodesis. The patient was notified that the office visit was recorded to enhance documentation accuracy. Patient is retired. History of Present IllnessCHIEF COMPLAINTStatus post right total shoulder arthroplasty.HISTORY OF PRESENT ILLNESSMr. Sandhu is a 74-year-old male who presents for follow-up status post right total shoulder arthroplasty. The patient reports he is doing well in regard to the shoulder. He admit his sensation is intact. He admits to difficulty sleeping. He states he initially tried sleeping in his bed, but is now sleeping in a recliner. The patient has been compliant with his sling and attending formal physical therapy. He admits to taking oxycodone at night to help him sleep. He admits to taking Motrin in the mornings. AssessmentASSESSMENTStatus post right shoulder arthroplasty, doing well. Plan 1. X-Ray I Shoulder - 2 views (XRays were ordered, obtained and interpreted today in the office. Indication: pain/dysfunction.); Status:Complete; Done: [id number] Perform:SOS14 (General); Due:[id number]; Last Updated By:Shad Pennington; 09/10/2020 9:28:58 AM;Ordered; For:Right shoulder pain; Ordered By:Milagros Shin;jkLaterality: : Right PLANThe patient denies any concerns or issues today. I explained the surgical procedure performed at length. We will continue to advance range of motion and strengthening per protocol. Aggressive stretching is encouraged. The patient should continue subscapularis restrictions. He may remove his sling while at rest. He denies a need for pain medication. Follow-up in 3-4 weeks. Scribed by Akosua Oh on 09/10/2020 at 11:56 AM for Milagros Shin Signatures Electronically signed by : Akosua Oh MA; Sep 10 2020 12:00PM EST (Author) Electronically signed by : Milagros Shin M.D.; Sep 10 2020 12:44PM EST Name Value Range Interpretation Code Description Data Allie rce(s) Supporting Document(s) ID Date Data Source [id number] 08/29/2020 06:55:57 AM EST [facility] Name Value Range Interpretation Code Description Data Allie rce(s) Supporting Document(s) SODIUM 142 mmol/L (136-145) [facility] POTASSIUM 4.4 mmol/L (3.6-5.2) [facility] CHLORIDE 109 mmol/L (100-108) H [facility] CO2 26 mmol/L (22-31) [facility] ANION GAP 7 mmol/L (7-16) [facility] UREA NITROGEN 19 mg/dL (7-24) [facility] CREATININE 1.08 mg/dL (0.80-1.30) [facility] BUN/CREAT RATIO 17.6 RATIO (10.0-20.0) [facility] GLUCOSE 118 mg/dL (70-99) H [facility] CALCIUM 7.5 mg/dL (8.4-10.2) L [facility] GFR >60 ml/min/1.73m2 (>59) [facility] GFR ( AMER) >60 ml/min/1.73m2 (>59) [facility] GFR INTERPRETATION [facility] --NORMAL KIDNEY FUNCTION OR MILD DISEASE - GFR >OR= 60CHRONIC KIDNEY DISEASE - GFR 15 - 59RENAL FAILURE - GFR <15 Est. GFR calculation based on the MDRDstudy equation, which assumes a steadystate for creatinine. Est. GFR should notbe used for medication dosing. ID Date Data Source [id number] 08/29/2020 06:30:32 AM EST [facility] Name Value Range Interpretation Code Description Data Allie rce(s) Supporting Document(s) WBC 10.5 10*3/uL (4.1-11.0) [facility] RBC 4.15 10*6/uL (4.60-6.10) L [facility] HGB 13.7 g/dL (13.5-18.0) [facility] HCT 39.1 % (41.0-53.0) L [facility] MCV 94.4 fL (80.0-95.0) [facility] MCH 33.1 pg (27.0-32.0) H [facility] MCHC 35.0 g/dL (32.0-36.0) [facility] RDW 12.9 % (10.5-14.5) [facility] PLT 198 10*3/uL (150-450) [facility] MPV 7.6 fL (7.1-10.7) [facility] ID Date Data Source [id number] 08/30/2020 11:56:00 AM EST [facility] [id number] [facility] [facility] [place], [place] [address] NAME: KONSTANTIN SANDHU OF : 1945REPORT: OPERATIONPATIENT NUMBER: [id number] STATUS: IPMEDICAL RECORD NUMBER: [id number] ADMISSION: 08/28/2020DATE OF DISCHARGE:ROOM: 02DATE OF PROCEDURE: 08/28/2020PREOPERATIVE DIAGNOSIS: Right shoulder end-stage degenerativeglenohumeral osteoarthritis.POSTOPERATIVE DIAGNOSES:1. Right shoulder end-stage degenerative glenohumeral osteoarthritis.2. Bicipital tendinopathy.PROCEDURE PERFORMED: Right total shoulder arthroplasty and open bicepstenodesis.SURGEON: Milagros Shin MDASSISTANT: FELI Morgan, utilized due to case complexity and lackof resident availability.ANESTHESIA: General.COMPLICATIONS: None.SPECIMENS: None.DRAINS: None.TOURNIQUET: None.INDICATIONS FOR PROCEDURE: This is a 74-year-old gentleman withprogressive right shoulder pain and dysfunction refractory to conservativemeasures, and workup including radiographs consistent with the abovepreoperative diagnosis. Intraoperative findings would demonstrate diffusegrade 4 chondrosis at the humeral head and glenoid with numerousintraarticular loose bodies and osteophytes.FINAL IMPLANTS UTILIZED: Arthrex [place] system with a size 10 humerus,medium VaultLock glenoid, and 50 x 19 mm humeral head.OPERATIVE PROCEDURE: After identification of the patient and the correctoperative extremity in the pre-operative area, the patient was taken to theoperating room awake, alert, and in stable condition. Adbbcz-ochkhjlz-lnvomjdai antibiotic was administered within one hour of incision. After induction of general anesthesia, the patient was placed into a beachchair position, with all bony prominences well-padded and with the head,torso, and legs secured. The arm and shoulder were prepped and draped, andwe again confirmed the correct operative site. A standard deltopectoralincision was created with full-thickness skin flaps developed. Thedeltopectoral interval was opened with the cephalic vein mobilizedlaterally. Subdeltoid bursa and clavipectoral fascia were debrided. Self-retaining retractor was placed under the deltoid and conjoint tendon. After coagulation of the anterior circumflex vessels, the subscapularis wasreleased 1 cm medial to the bicipital groove and tagged. Capsule wasmobilized, protecting the axillary nerve and humeral head dislocated. Afreehand cut at approximately 30 degrees retroversion was created. Humeralcanal was sounded and sequentially broached until appropriate interferencefit was determined. A humeral protector was then placed while we turnedattention to the glenoid. Labrum and capsule were debridedcircumferentially. Center of the glenoid was determined, and afterplacement of the central guide pin, appropriate drills and reamers wereused to prepare the glenoid. Trial component demonstrated no evidence ofrocking or instability. We then cemented the final component into placeunder pressure unt il cement fully hardened. Final stem component was thenimplanted as well, and trial heads utilized to test appropriate stabilityand range of motion. After final determination, head implant was impactedonto the stem and shoulder reduced. Final examination showed full overheadmotion, no anterior instability in abduction/external rotation, andposterior translation of 50 percent. After irrigation, subscapularis wasrepaired with non-absorbable suture. Deltopectoral interval was taggedwith a couple of Vicryl and skin closed with Vicryl and jason. Tissueswere injected with pain cocktail. Sterile dressing was applied, andpatient placed in an UltraSling before transport to the recovery room instable condition.Please note that, during glenoid preparation, the long head biceps tendonwas noted to be significantly frayed and degenerative. It was released andthe remaining labrum debrided. At the conclusion of the case, the bicepswas retrieved at the groove, tensioned, and shortened. It was thentenod esed into the groove with a combination of transosseous sutures, aswell as soft tissue sutures incorporating into the subscapularis repair.DICTATED BY: SUSANNA Prattictated: 08/28/2020 19:45DT: 08/28/2020 21:25Job #: [id number]: [facility] computer generated reports are not confirmed orauthenticated unless they are signed by the providerElectronically Authenticated by:MILAGROS SHIN MD On 08/30/2020 11:56 AM EST Name Value Range Interpretation Code Description Data Allie rce(s) Supporting Document(s) ID Date Data Source [id number] 08/28/2020 11:00:00 AM EST [facility] DATE OF EXAM: 08/28/2020AP view. Portabl e. INDICATION: Placement of right shoulder prosthesis. AP views of the right shoulder shows postoperative soft tissue edema and air. Shoulder prosthesis appears well placed with good alignment. No other significant finding. IMPRESSION: Right shoulder prosthesis in good position with normal alignment. No evidence of complication. Professional interpretation performed by [facility] at [facility] End of diagnostic report for accession: [id number] Interpreted: Miguel Case MDTranscribed: 08/28/2020 10 :59 AMSigned: 08/28/2020 11:00 AM Miguel Case MD [facility] ACC # [id number] BILL # [id number] Name Value Range Interpretation Code Description Data Allie rce(s) Supporting Document(s) ID Date Data Source [id number] 08/25/2020 11:47:00 AM EST [facility] Name Value Range Interpretation Code Description Data Allie rce(s) Supporting Document(s) SARS coronavirus 2 RNA [Presence] in Res piratory specimen by KIRILL with probe detection [facility] This lab was ordered by [facility] and reported by [facility]. ID Date Data Source [id number] 08/25/2020 12:15:18 PM EST [facility]: Corey ElderEnderOB: 1945Provider: Ilsa Veliz: 08/22/2020 Reason For VisitCorey Sandhu is here today for Right shoulder. Corey Sandhu is an established patient here for follow up. Patient denies injury . Patient is retired. History of Present Illness<OBX.5.1><OBX.5.1.1>Patient presents for a right shoulder preoperative H</OBX.5.1.1><OBX.5.1.2>P. He is scheduled for a right total shoulder arthroplasty on 08/28/2020. He has known primary degenerative OA. </OBX.5.1.2></OBX.5.1> AssessmentRight shoulder primary degenerative OA. I am prescribing a Slingshot 3 for post-surgical use. The patient will be fitted and educated on the brace today and begin using the product on the date of surgery. Plan UE Slingshot 3 (SOS) [id number]; Status:Complete; Done: 22Aug2020 Perform:SOS28; Due:05Sep2020; Last Updated By:Cecy Canada; 08/22/2020 2:29:13 PM;Ordered; For:Aftercare following surgery of the musculoskeletal system, Pain in joint of right shoulder, Primary osteoarthritis of right shoulder; Ordered By:Rex Veliz;Dispensed : Dispensed Today During Office VisitDME Supply Size 1 (S,M,L) : [place] Plan, Assessment and Recommendation(s) The plan for the patient is surgery open. Right shoulder primary degenerative OA scheduled for a right total shoulder arthroplasty on 08/28/2020. I reviewed the risk, procedure, and recovery with him today. He wishes to proceed. He was provided an UltraSling today. All his questions were answered. We are still awaiting lab work from preadmission testing. If all looks normal, we will proceed as scheduled.Pertinent risks and benefits of surgery were discussed in detail. Specific risks including infection, bleeding, neurovascular injury, deep vein thrombosis, wound / healing complications, and anesthetic complications, including , were fully reviewed. We discussed the possibility that various aspects of the surgical procedure could fail to heal, and that additional surgery could then be required. We discussed rehabilitation-related compl ications such as stiffness or instability. We also thoroughly reviewed the typical postoperative restrictions and rehabilitation requirements for this type of surgery, and how those requirements could change depending on other intra- operative findings, and depending on individual speed of post-operative healing. I explained how failure to follow post-operative instructions could result in failure of the surgery. The patient was given the opportunity to ask questions, and appeared to be satisfied with my responses. Patient expressed good understanding of the surgical procedure, and of the alternative treatment options I presented. The plan, including the appropriateness of surgery for this patient, was also discussed with Dr. Shin Work / School Note Corey Sandhu is retired. This document was dictated and electronically signed using [employer] software. A reasonable attempt at proof reading has been made to minimize errors. Please call with any questions. Signatures Electronically signed by : Rex Veliz PA-C; Aug 22 2020 2:49PM EST (Author) Electronically signed by : Milagros Shin M.D.; Aug 25 2020 12:15PM EST Name Value Range Interpretation Code Description Data Allie rce(s) Supporting Document(s) ID Date Data Source [id number] 08/19/2020 02:21:37 PM EST [facility] SPEC EXP DATE 08/31/2020PATI ENT ABO/Rh O POSITIVEANTIBODY SCREEN NEGATIVETESTING SITE PERFORMED AT [address] [place] [address] BANK COMMENT BLOOD TYPE CONFIRMED. Name Value Range Interpretation Code Description Data Allie rce(s) Supporting Document(s) ID Date Data Source [id number] 08/20/2020 12:57:58 PM EST [facility] Name Value Range Interpretation Code Description Data Allie rce(s) Supporting Document(s) SPECIMEN DESCRIPTION [facility] STAPH SCREEN RESULTS (ONEGSA) [facility] COMMENT [facility] GENE TO DETECT STAPH AUREUS. (2) RT-P CR WAS PERFORMED FOR THE mecA AND SCCmec GENES TO DETECT METHICILLIN RESISTANCE IN STAPH AUREUS. ID Date Data Source [id number] 08/20/2020 11:17:59 AM EST [facility] [place] SPECIMEN DESCRIPTION MIDSTREAM UR INE,CLEAN CATCHCULTURE RESULTS NO GROWTHREPORT STATUS FINAL 08/20/2020 Name Value Range Interpretation Code Description Data Allie rce(s) Supporting Document(s) ID Date Data Source [id number] 08/19/2020 01:00:36 PM EST [facility] [place] Name Value Range Interpretation Code Description Data Allie rce(s) Supporting Document(s) SODIUM 143 mmol/L (136-145) [facility] POTASSIUM 4.4 mmol/L (3.6-5.2) [facility] CHLORIDE 110 mmol/L (100-108) H [facility] CO2 26 mmol/L (22-31) [facility] ANION GAP 7 mmol/L (7-16) [facility] UREA NITROGEN 15 mg/dL (7-24) [facility] CREATININE 0.87 mg/dL (0.80-1.30) [facility] BUN/CREAT RATIO 17.2 RATIO (10.0-20.0) [facility] GLUCOSE 85 mg/dL (70-99) [facility] CALCIUM 8.6 mg/dL (8.4-10.2) [facility] GFR >60 ml/min/1.73m2 (>59) [facility] GFR ( AMER) >60 ml/min/1.73m2 (>59) [facility] GFR INTERPRETATION [facility] --NORMAL KIDNEY FUNCTION OR MILD DISEASE - GFR >OR= 60CHRONIC KIDNEY DISEASE - GFR 15 - 59RENAL FAILURE - GFR <15 Est. GFR calculation based on the MDRDstudy equation, which assumes a steadystate for creatinine. Est. GFR should notbe used for medication dosing. ID Date Data Source [id number] 08/19/2020 12:41:50 PM EST [facility] Name Value Range Interpretation Code Description Data Allie rce(s) Supporting Document(s) COLOR [facility] [address] [facility] [address] APPEARANCE [facility] SPEC GRAV URINE 1.022 (1.003-1.030) [facility] [place] PH URINE 5.0 (5.0-7.5) [facility] LEUK ESTERASE (NEG) [facility] NITRITE URINE (NEG) [facility] PROTEIN URINE (NEG) [facility] GLUCOSE URINE (NEG) [facility] KETONE URINE (NEG) [facility] UROBILINOGEN 1.0 mg/dL (0-1.0) [facility] BILIRUBIN URINE 1+ (NEG) A [facility] INTERFERING SUBSTANCES MAY CAUSE FALSEPO SITIVE BILIRUBIN, WHICH HAS BEENSHOWN TO BE CLINICALLY INSIGNIFICANT.CORRELATE WITH OTHER TESTING. BLOOD/HGB URINE (NEG) [facility] ID Date Data Source [id number] 08/19/2020 12:40:18 PM EST [facility] Name Value Range Interpretation Code Description Data Allie rce(s) Supporting Document(s) WBC 4.6 10*3/uL (4.1-11.0) [facility] [place] RBC 4.81 10*6/uL (4.60-6.10) [facility] HGB 15.7 g/dL (13.5-18.0) [facility] HCT 45.8 % (41.0-53.0) [facility] PERFORMED AT [address] [facility] [address] MCV 95.2 fL (80.0-95.0) H [facility] MCH 32.5 pg (27.0-32.0) H [facility] MCHC 34.2 g/dL (32.0-36.0) [facility] RDW 13.0 % (10.5-14.5) [facility] PLT 208 10*3/uL (150-450) [facility] MPV 7.7 fL (7.1-10.7) [facility] NEUT % 55.9 % (35.0-75.0) [facility] LYMPH % 29.2 % (16.0-52.0) [facility] MONO % 11.3 % (0.0-8.0) H [facility] EOS % 2.6 % (0.0-5.0) [facility] BASO % 1.0 % (0.0-4.0) [facility] NEUT # 2.6 10*3/uL (1.8-7.7) [facility] LYMPH # 1.3 10*3/uL (1.2-4.8) [facility] MONO # 0.5 10*3/uL (0.0-0.8) [facility] Eosinophils [#/volume] in Blood by Automated count 0.1 10*3/uL (0.0-0 .5) [facility] BASO # 0.0 10*3/uL (0.0-0.2) [facility] ID Date Data Source [id number] 08/18/2020 11:09:00 AM EST [facility] ([facility]) Name Value Range Interpretation Code Description Data Allie rce(s) Supporting Document(s) Thyrotropin [Units/volume] in Serum or Plasma by Detec tion limit <= 0.05 mIU/L 0.79 uIU/mL 0.36-3.74 [facility] ([facility] ) ID Date Data Source [id number] 08/18/2020 11:09:00 AM EST [facility] ([facility]) Name Value Range Interpretation Code Description Data Allie rce(s) Supporting Document(s) Glucose [Mass/volume] in Serum or Plasma 105 mg/dL 74-99 [facility] ([facility]) 100-125 mg/dL PRE-DIABETES/FASTING >126 mg/dL DIABETES/FASTING Urea nitrogen [Mass/volume] in Serum or Plasma 19 mg/dL 7-18 [facility] ([facility]) Potassium [Moles/volume] in Serum or Plasma 4.4 meq/L 3.5-5.1 [facility] ([facility]) Creatinine 0.9 mg/dL 0.6-1.3 [facility]) Sodium [Moles/volume] in Serum or Plasma 143 meq/L 136-145 [facility] ([facility]) Chloride [Moles/volume] in Serum or Plasma 106 meq/L 98-107 [facility] ([facility]) Carbon dioxide, total [Moles/volume] in Serum or Plasma 29 meq/L 21 -32 [facility] ([facility]) Calcium [Mass/volume] in Serum or Plasma 8.3 mg/dL 8.5-10.1 [facility] ([facility]) NOTE: RESULT VERIFIED. Alkaline phosphatase isoenzyme [Units/volume] in Serum or Pl asma 95 mg/dL 46-116 [facility] ([facility]) Total Bilirubin 0.6 mg/dL 0.2-1.0 [facility] ([facility]) Albumin [Mass/volume] in Serum or Plasma 3.7 g/dL 3.4-5.0 [facility] ([facility]) Alanine aminotransferase [Enzymatic activity/volume] in Seru m or Plasma 45 U/L 12-78 [facility] ([facility]) Aspartate aminotransferase [Enzymatic activity/volume] in Serum or Plasma 31 U/L 15-37 [facility] ([facility] ) Proteinase 3 Ab [Units/volume] in Serum 6.4 g/dL 6.4-8.2 [facility] A/G Ratio 1.37 CALC 1.00-1.90 [facility] ([facility]) Glomerular filtration rate/1.73 sq M pre dicted among blacks [Volume Rate/Area] in Serum or Plasma by Creatinine-based formula (MDRD) Laboratory test result [facility] ([facility]) <content>CHRONIC KIDNEY DISEASE STAGING PER NKF</content>
<content></content>
<content>STAGE I & II GFR >= 60 NORMAL TO MILDLY DECREASED</content>
<content>STAGE III GFR 30-59 MODERATELY DECREASED</content>
<content>STAGE IV GFR 15-29 SEVERELY DECREASED</content>
<content>STAGE V GFR <15 VERY LITTLE GFR LEFT</content>
<content>ESRD GFR <15 ON RADIOGRAPHER</content>
<content></content> Glomerular filtration rate/1.73 sq M pre dicted among non-blacks [Volume Rate/Area] in Serum or Plasma by Creatinine-based formula (MDRD) Laboratory test result [facility] ([facility] ) ID Date Data Source [id number] 08/18/2020 11:09:00 AM EST [facility] Name Value Range Interpretation Code Description Data Allie rce(s) Supporting Document(s) Leukocytes [#/volume] in Blood by Automated count 4.4 x10*3/UL 4.1-10 .9 [facility] ([facility]) Hemoglobin [Mass/volume] in Blood 15.4 g/dL 12.0-18.0 [facility] ([facility]) Erythrocytes [#/volume] in Blood by Automated count 4.78 x10*6/UL 4.2 0-6.30 [facility] MCV 91.7 fL 80.0-97.0 [facility] ([facility]) MCH 32.2 pg 26.0-32.0 [facility]) Hematocrit [Volume Fraction] of Blood by Automated count 43.9 % 3 7.0-51.0 [facility] ([facility]) MCHC 35.0 g/dL 31.0-38.0 [facility] ([facility]) Erythrocyte distribution width [Ratio] by Automated count 12.8 % 11.6-13.7 [facility] ([facility]) MPV 8.1 FL 7.8-11.0 [facility] ([facility]) Platelets [#/volume] in Blood by Automated count 199 x10*3/UL 140-440 [facility] ([facility]) Lymph % 25.5 % 10.0-58.5 [facility] ([facility]) Neut % 68.3 % 37.0-92.0 [facility] ([facility]) Mid % 6.2 % 1.7-9.3 [facility] Lymph # 1.1 x10*3/UL 0.6-4.1 [facility] ([facility]) Mid # 0.3 x10*3/UL 0.1-0.6 [facility] ([facility]) Neut # 3.0 x10*3/UL 2.0-7.8 [facility] ([facility]) ID Date Data Source [id number] 07/25/2020 12:00:[address] [facility] Milagros Shin MD Patient Name: COREY [id number] Date [place] : 1945[place] [address] Date of Exam: 07/25/2020#: Fax: [phone] EXAM: MRI SHOULDER RIGHT W/O CONTRASTCLINICAL INFORMATION: Chronic atraumatic pain.There are no prior right shoulder MRI examinations for comparison.3T multiplanar MRI imaging of the right shoulder was obtained using varioussequences.There is ggiv-lu-hktmxiez hypertrophic degenerative change seen involvingthe acromioclavicular joint with a small amount of T2 hypersignal seenwithin the AC joint. The acromion process is Type II with a small spurarising from the inferior surface of the acromion process at the AC joint.There is patchy and linear T2 hypersignal seen in the supraspinatus tendonwithout evidence of supraspinatus musculotendinous retraction. There ispatchy and linear T2 hypersignal seen throughout the subscapularis tendonwhich appears thinned. Patchy T2 hypersignal is also seen in theinfraspinatus tendon. The biceps tendon resides within the bicipitalgroove. There is an increased amount of fluid seen surrounding the bicepstendon. There is a large amount of fluid in the subcoracoid recess whichis septated. There is prominent humeral head and glenoid marginalosteophytosis with asymmetric glenohumeral joint space narrowing andchondral thinning. The humeral head resides somewhat high within theglenohumeral joint. Slight patchy T2 hypersignal is seen in thesubchondral humeral head and glenoid. There is somewhat patchy appearingT2 hypersignal seen in the labrum difficult to evaluate without shoulderMRI arthrography.IMPRESSION:1. There is supraspinatus, and particularly, subscapularistendinitis/tendinosis. A partial tear involving the subscapularis tendonis suspected. There is no evidence of a full thickness tear involving thesupraspinatus tendon, however, a partial full thickness tear cannot becompletely ruled out.2. AC joint; and particularly glenohumeral joint degenerative changes asdescribed above.3. Large septated complex fluid collection in the subcoracoid recess.4. Increased fluid seen surrounding the biceps tendon suggestive of bicepstenosynovitis.5. There is subchondral T2 hypersignal seen involving the humeral head andglenoid with cystic degenerative change involving the subchondral glenoidanteriorly and posteriorly.6. Signal changes seen in the labrum suggestive labral degeneration. Alabral tear cannot be ruled out.7. Other findings as described above.Accredited by the [employer] in MR.ALBERTA Jacome/Morgan you for referring COREY SANDHU to our office. Electronically Signed - JASON TODD DO 07/28/20 16:49 Name Value Range Interpretation Code Description Data Allie rce(s) Supporting Document(s) ID Date Data Source [id number] 07/08/2020 08:42:38 PM EDT [facility]: Corey EldereDOB: 1945Provider: Beth ShinS: 07/07/2020 History of Present IllnessCHIEF COMPLAINTFollow- up of right shoulder pain. HISTORY OF PRESENT ILLNESSMr. Sandhu is a 74-year-old male who presents for follow-up evaluation of right shoulder pain. He reports he is experiencing significant right shoulder pain. He notes his pain is deep inside his shoulder, and he admits he is also tender to palpation. He denies numbness and tingling. He admits to night pain. He reports his range of motion is limited due to his shoulder pain. He reports his shoulder pain is beginning to impact his activities of daily living. The patient denies taking any medication to alleviate his symptoms. Results/Data OtherX-rays of the right shoulder previously taken in 11/2019 were reviewed in the office today. These show moderate to early severe end stage degenerative arthrosis with nearly complete loss of joint space on the AP and axillary views. AssessmentASSESS MENTRight shoulder primary glenohumeral osteoarthritis. Plan MRI (SOS) Referral Diagnostic Diagnostic Status: Need Information - FinancialAuthorization Requested for: 07Jul2020 Ordered;For: Pain in joint of right shoulder; Ordered By: Milagros Shin Performed: Order Comments: Patient does not need a follow up in the office after MRI is completed - this is just for surgical planning .Ok to have done in [place] . Due: [id number]; Last Updated By: Felicitas Fernandez; 07/07/2020 10:17:18 AMReason: : for preoperative planningSOS The patient has had a course of Physical Therapy for greater than 4 weeks: : YesThe patient has had a course of NSAIDS for greater than 4 weeks : YesMRI Ordered Contrast : 01: without gadoLaterality: : Right PLANI reviewed with the patient the exam and x-ray findings which reveal moderate to early severe end stage degenerative arthrosis with nearly complete loss of joint space. We discussed his diagnosis as well as treatment options, including operative and nonoperative measures. We discussed conservative management, including Biofreeze, injection, ice therapy, and anti-inflammatories. His symptoms have become bothersome enough that he wants to proceed with surgery. He is a candidate for total shoulder arthroplasty.Pertinent risks and benefits of surgery were discussed in detail. Specific risks including infection, bleeding, neurovascular injury, deep vein thrombosis, wound / healing complications, and anesthetic complications, including , were fully discussed. We discussed the possibility that various aspects of the surgical procedure could fail to heal, and that additional surgery could then be required. We also thoroughly reviewed the typical postoperative restrictions and rehabilitation requirements for this type of surgery, and how those requirements could change depending on other intra-operative findings, and depending on individual speed of post- operative healing. He understands he will need to wear a sling following surgery. He was informed it will take 3-4 months before he can return to high impact activities. I explained how failure to follow post-operative instructions could result in failure of the surgery. The patient was given the opportunity to ask questions, and appeared to be satisfied with my responses. Patient expressed good understanding of the surgical procedure, and of the alternative treatment options I presented. We will get a preoperative MRI to make sure his rotator cuff looks okay prior to surgery. He is in good health and interested in doing this on an outpatient basis. We will get this set up at his convenience. The patient understands and agrees with this plan. Scribed by Akosua Oh on 07/07/2020 at 09:17 PM for Milagros Shin Signatures Electronically signed by : Akosua Oh MA; Jul 07 2020 9:17PM EST (Author) Electronically signed by : Milagros Shin M.D.; Jul 08 2020 8:42PM EST Name Value Range Interpretation Code Description Data Allie rce(s) Supporting Document(s) Procedure Social History No Information Vital Signs ID Date Data Source UNK Name Value Range Interpretation Code Description Data Source(s) Body temperature 98.2 [degF] 98.2 [degF] [facility] ([facility]) Body height 75 [in_i] 75 [in_i] [facility] ([facility]) 6'3" Body weight 285.25 [lb_av] 285.25 [lb_av] [facility] ([facility]) Body mass index (BMI) [Ratio] 35.6 kg/m2 35.6 k g/m2 [facility] ([facility]) Keller body weight 196 [lb_av] 196 [lb_av] [facility] ([facility]) Body weight 129.389 kg 129.389 kg [facility] ([facility]) Body surface area Derived from formula 2.55 m2 2.55 m2 [facility] ([facility]) Systolic blood pressure 131 mm[Hg] 131 mm[Hg] [facility] ([facility]) Diastolic blood pressure 87 mm[Hg] 87 mm[Hg] [facility] ([facility]) Diastolic blood pressure 80 mm[Hg] 80 mm[Hg] [facility] ([facility]) Body height 75 [in_i] 75 [in_i] [facility] ([facility]) 6'3" Keller body weight 196 [lb_av] 196 [lb_av] [facility] ([facility]) Body surface area Derived from formula 2.55 m2 2.55 m2 [facility] ([facility]) Systolic blood pressure 138 mm[Hg] 138 mm[Hg] M [facility] ([facility]) Body temperature 98.2 [degF] 98.2 [degF] [facility] ([facility]) Body weight 284.00 [lb_av] 284.00 [lb_av] [facility] ([facility]) Body mass index (BMI) [Ratio] 35.5 kg/m2 35.5 k g/m2 [facility] ([facility], ) Body weight 128.822 kg 128.822 [facility] Systolic blood pressure 122 mm[Hg] 122 mm[Hg] [facility] Diastolic blood pressure 78 mm[Hg] 78 mm[Hg] [facility] ([facility]) Heart rate 78 /min 78 /min [facility] ([facility]) Body height 74 [in_i] 74 [in_i] [facility] ([facility]) 6'2" Body weight 281.00 [lb_av] 281.00 [lb_av] [facility] ([facility]) Body mass index (BMI) [Ratio] 36.1 kg/m2 36.1 k g/m2 [facility] Systolic blood pressure 124 mm[Hg] 124 mm[Hg] [facility] Diastolic blood pressure 80 mm[Hg] 80 mm[Hg] [facility] ([facility]) Heart rate 76 /min 76 /min [facility] ([facility]) Body height 74 [in_i] 74 [in_i] [facility] 6'2" Body weight 284.00 [lb_av] 284.00 [lb_av] [facility] ([facility]) Body mass index (BMI) [Ratio] 36.5 kg/m2 36.5 k g/m2 [facility] ([facility]) Systolic blood pressure 128 mm[Hg] 128 mm[Hg] [facility] Diastolic blood pressure 72 mm[Hg] 72 mm[Hg] [facility] ([facility]) Heart rate 80 /min 80 /min [facility] ([facility]) Body height 74 [in_i] 74 [in_i] [facility] ([facility]) 6'2" Body weight 286.00 [lb_av] 286.00 [lb_av] [facility] ([facility]) Oxygen saturation in Arterial blood by Pulse oximetry 96 % 96 % [facility] ([facility]) Air Body mass index (BMI) [Ratio] 36.7 kg/m2 36.7 k g/m2 [facility] Systolic blood pressure 130 mm[Hg] 130 mm[Hg] M [facility] ([facility]) Body height 74 [in_i] 74 [in_i] [facility] ([facility]) 6'2" Diastolic blood pressure 80 mm[Hg] 80 mm[Hg] [facility] ([facility]) Systolic blood pressure 132 mm[Hg] 132 mm[Hg] [facility]) Diastolic blood pressure 90 mm[Hg] 90 mm[Hg] [facility] ([facility]) Heart rate 92 /min 92 /min [facility] ([facility], [facility]) Respiratory rate 15 /min 15 /min [facility] ( [facility]) Oxygen saturation in Arterial blood by Pulse oximetry 94 % 94 % [facility] ([facility]) Body temperature 97.5 [degF] 97.5 [degF] [facility] ([facility]) Deprecated Oxygen saturation in Capillary blood by Oximetry 95 % Normal (applies to non-numeric results) 95 % [facility] Systolic blood pressure 121 mm[Hg] Normal (applies t o non-numeric results) 121 mm[Hg] [facility] Diastolic blood pressure 73 mm[Hg] Normal (applies to non-numeric results) 73 mm[Hg] [facility] Heart rate 70 min Normal (applies to non-numeric resul ts) 70 min [facility] Respiratory rate 16 min Normal (applies to non-numeric results) 16 min [facility] Body temperature 37.0 ranjit Normal (applies to non-numeric results) 37.0 ranjit [facility] Body height 190.1952 cm Normal (applies to non-numeric res ults) 190.1952 cm [facility] Body mass index (BMI) [Ratio] 34.39 kg/m2 No rmal (applies to non-numeric results) 34.39 kg/m2 [facility] Body weight Measured 124.8 kg Normal (applies to n on-numeric results) 124.8 kg [facility] Systolic blood pressure 118 mm[Hg] 118 mm[Hg] [facility] Diastolic blood pressure 72 mm[Hg] 72 mm[Hg] [facility] ([facility]) Heart rate 78 /min 78 /min [facility] ([facility]) Body height 74 [in_i] 74 [in_i] [facility] ([facility]) 6'2" Body weight 280.00 [lb_av] 280.00 [lb_av] [facility] ([facility]) Body mass index (BMI) [Ratio] 35.9 kg/m2 35.9 k g/m2 [facility] ([facility])
--- NOTE | 2021-08-03 16:55 | REP ---
INDICATION: CHEST PAIN. COMPARISON: 01/18/2021. TECHNIQUE: Single portable AP view of the chest was performed. FINDINGS: Increased density in the left base may represent atelectasis/infiltrate, a small left effusion is not excluded. The right lung demonstrates no acute abnormality. There is mild cardiomegaly. There is some calcification and tortuosity of the thoracic aorta. The mediastinal silhouette is otherwise unremarkable. IMPRESSION: There are findings suggesting left basilar atelectasis/infiltrate with possible small left effusion. <Electronically signed by Bartolo Salmeron > 08/03/21 1704
[2021-08-03 17:22] LABS: BASO % 0.7 % (0.0-1.0); EOS # 0.2 10^3/uL (0.0-0.5); EOS % 4.8 % (0.0-3.0); HEMATOCRIT 46.7 % (42.0-52.0); HEMOGLOBIN 16.3 g/dl (13.5-17.5); LYMPH # 1.2 10^3/uL (1.5-5.0); LYMPH % 27.7 % (24.0-44.0); MEAN CORPUSCULAR HEMOGLOBIN 32.1 pg (27.0-33.0); MEAN CORPUSCULAR HGB CONC 34.9 g/dl (32.0-36.5); MEAN CORPUSCULAR VOLUME 91.9 fl (80.0-96.0); MONO # 0.5 10^3/uL (0.0-0.8); MONO % 10.9 % (2.0-8.0); NEUTROPHILS # 2.4 10^3/uL (1.5-8.5); NEUTROPHILS % 55.7 % (36.0-66.0); PLATELET COUNT, AUTOMATED 218 10^3/uL (150-450); RED BLOOD COUNT 5.08 10^6/uL (4.30-6.10); WHITE BLOOD COUNT 4.3 10^3/uL (4.0-10.0)
[2021-08-03 18:00] LABS: ALBUMIN 3.4 GM/DL (3.2-5.2); ALT/SGPT 52 U/L (12-78); BILIRUBIN,DIRECT < 0.1 MG/DL (0.0-0.2); BILIRUBIN,TOTAL 0.3 MG/DL (0.2-1.0); BLOOD UREA NITROGEN 15 MG/DL (7-18); CALCIUM LEVEL 8.7 MG/DL (8.8-10.2); CARBON DIOXIDE LEVEL 26 MEQ/L (21-32); CHLORIDE LEVEL 111 MEQ/L (98-107); CREATININE FOR GFR 0.96 MG/DL (0.70-1.30); FREE T4 0.89 NG/DL (0.76-1.46); GLOMERULAR FILTRATION RATE > 60.0 (>42); GLUCOSE, FASTING 139 MG/DL (70-100); LIPASE 90 U/L (73-393); NT-PRO BNP 33 PG/ML (<125); POTASSIUM SERUM 4.2 MEQ/L (3.5-5.1); SODIUM LEVEL 144 MEQ/L (136-145); THYROID STIMULATING HORMONE 0.763 uIU/ML (0.358-3.740); TOTAL PROTEIN 6.6 GM/DL (6.4-8.2)
--- OUTSIDE RECORDS SUMMARY | 2021-08-03 18:12 | CCD ---
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 Phone Vinod Shin MD Unavailable [...] Vinod Taylor MD Unavailable Unavailab le Kip, Viond Taylor MD Unavailable Unavailab le Kip, Vinod [...] Unavailable Unavailable Rayna Sánchez MD Unavailable Unavailable Ryana Sánchez MD Unavailable Unavailable Rayna Sánchez MD [...] Taylor MD Unavailable Unavailab le Kip, Vinod Taylro MD Unavailable Unavailab le Kip, Vinod Taylor [...] Unavailable Unavailable CORDELL, MARLENE ARGUETA Unavailable Unavailable COREDLL, MARLENE ARGUETA Unavailable Unavailable CORDELL, MARLENE ARGUETA Unavailable Unavailable COREDLL, MARLENE ARGUETA Unavailable Unavailable CORDELL, MARLENE ARGUETA [...] Unavailable Kiet MAGANA MD Unavailable Unavailable Kiet MAGNAA MD Unavailable Unavailable Kiet MAGANA MD Unavailable Unavailable Kiet MAGANA MD Unavailable Unavailable Kiet MAGANA MD Unavailable Unavailable Kiet MAGANA MD Unavailable Unavailable Keit MAGANA MD Unavailable Unavailable CHINO, Kiet BINGHAM [...] CHINO, Kiet BINGHAM MD Unavailable Unavailable CHINO, Kite BINGHAM MD Unavailable Unavailable CHINO, Kiet BINGHAM [...] CHINO, Kiet BINGHAM MD Unavailable Unavailable CHINO, Kite BINGHAM MD Unavailable Unavailable CHINO, Kiet BINGHAM [...] Vinod Taylor MD Unavailable Unavailab le Kip, Vniod Taylor MD Unavailable Unavailab le Kip, Vinod [...] Kiet Almaraz JR, MD Unavailable Unavailable Kiet Almarza JR, MD Unavailable Unavailable Kiet Almaraz JR, MD Unavailable Unavailable Rufina JR, J Morgan MD Unavailable Unavailable Rufina JR, J Omrgan MD Unavailable Unavailable Rufina JR, J Morgan [...] is protected by Article 27-F of the [facility] Public [employer] law. If you continue you may have access to information: Regarding HIV / AIDS; Provided by facilities licensed or operated by the [facility] Office of Mental Health; or Provided by the [facility] Office for People With Developmental Disabilities. If such information is present, then the following [facility] mandated warning applies: This information has been [...] law may result in a fine or penitentiary sentence or both. A general authorization for the release of medical or other information is NOT sufficient authorization for further disc losure. Family History Family Member Name Family Member Gender Family Member Status Date o f Status Description Data Source(s) Unknown Unknown Problem [facility] ([facility], ) Unknown Male Problem [facility] ([facility] () Unknown Female Problem [facility] ([facility]) Unknown Female Problem [facility] ([facility]) Unknown Female Problem [facility] ([facility]) Encounters Encounter Providers Location Date Indications Data Source(s ) Outpatient Attender: Morgan Barnard/Jd/Adin/Charlene joshi 06/24/2021 10:00:00 AM EDT MED[facility] ([facility], ) Outpatient Attender: VICK MAGANA MDReferrer: MARLENE LANDA MD 06/22/2021 08:29:55 AM EDT [facility] Recurring Patient Referrer: MARLENE LANDA MD 06/19/2021 01: 35:32 PM EDT [facility] Outpatient Attender: Neo Villasenor 06/09 03:00:00 PM EDT MED[facility] ([facility] ) Office Visit Attender: MARLENE LANDA MD Main office - [facility] 06/02/2021 08:15:00 AM EDT [facility] ([facility]) Outpatient Attender: RAMONITA Ribeiroerrer: Neo Sánchez MD 05/05/2021 02:51:47 PM EDT [facility] Outpatient Attender: VICK CORDONeferrer: Neo Boss 04/20/2021 12:00:35 PM EDT [facility] Outpatient Attender: Neo Villasenor 04/15 10:00:00 AM EDT MEDENT ([facility] ) Recurring Patient Referrer: MARLENE LANDA MD 03/30/2021 07: 16:28 AM EDT [facility] Outpatient Attender: VICK Hernandezerrer: Neo Boss 03/23/2021 05:02:17 PM EDT [facility] Outpatient Attender: RAMONITA Ribeiroerrer: Neo Sánchez MD 03/05/2021 10:24:37 AM EDT [facility] Recurring Patient Referrer: MARLENE LANDA MD 03/03/2021 10: 03:02 AM EDT [facility] Recurring Patient Referrer: MARLENE LANDA MD 03/02/2021 02: 30:56 PM EDT [facility] Office Visit Attender: MARLENE LANDA MD Main office - [facility] 02/27/2021 08:00:00 AM EDT MED[facility] ([facility]) Outpatient Attender: MARLENE LANDA MD Main office - [facility] 02/24/2021 03:15:00 PM EDT [facility] ([facility]) Office Visit Attender: MARLENE LANDA MD Main office - [facility] 02/20/2021 09:45:00 AM EDT [facility] ([facility]) Outpatient Attender: Neo Villasenor 02/16 09:30:00 AM EDT MED[facility] ([facility] ) Outpatient Attender: Milagros Shin MDReferrer: Neo Sánchez MD 01/30/2021 09:53:12 PM EDT [facility] Recurring Patient Referrer: MARLENE LANDA MD 01/26/2021 09: 07:14 AM EDT [facility] Outpatient Attender: WILLI MOSER JR Gratn Villasenor 0 01/23/2021 01:40:00 PM EDT MED[facility] ([facility] ) Outpatient Attender: Cristela elyy 01/14/2021 05:50:00 PM EDT [facility] ([facility]) Outpatient Attender: REX Don: Neo Sánchez MD 12/01/2020 05:23:25 PM EST [facility] Outpatient Attender: Milagros CORDONeferrer: Neo Sánchez MD 10/21/2020 08:23:08 PM EST [facility] Outpatient Attender: Milagros Shin MDReferrer: Neo Sánchez MD 09/10/2020 12:44:41 PM EST [facility] Inpatient Attender: Milagros Shin MD 08/29/2020 06:30:33 AM EST [facility] ( in Healthcare facility) Attender: Milagros Shin MDAdmitter: Milagros Shin MDConsultant: Neo Sánchez MD 08/28/2020 05:2 2:00 AM EST - 08/29/2020 12:26:[address] [facility] Inpatient Attender: Milagros Shin MDAdmitter: Milagros montalvo MD 08/28/2020 05:22:00 AM EST - 08/29/2020 12:26:00 PM EST BILATERAL SHOULDER PAIN (719.41) (M25.511,M25.512) [facility] BILATERAL SHOULDER PAIN (719.41) (M25.51 1,M25.512) Patient discharged. Inpatient Attender: 0000{ WATAGA 08/28/2020 05:22:00 AM E [facility] Outpatient Attender: REX Don: Neo Sánchez MD 08/25/2020 12:15:18 PM EST [facility] Outpatient CMP [facility] 08/25/2020 08:30:0 0 AM EST MED[facility] ([facility]) Outpatient Attender: Milagros Shin MD 08/19/2020 12:40:19 PM EST [facility] Outpatient Attender: Milagros Shin MD 08/19/2020 11 :02:00 AM EST ELECTIVE RIGHT TOTAL SHOULDER ARTHROPLASTY [facility] ELECTIVE RIGHT TOTAL SHOULDER ARTHROPLAS TY Outpatient Attender: Neo Villasenor 08/18 09:00:00 AM EST MED[facility] ([facility] ) Recurring Patient Referrer: MARLENE LANDA MD 08/13/2020 01: 55:54 PM EST [facility] Outpatient Attender: Milagros Shin MDReferrer: Neo Sánchez MD 07/08/2020 08:42:38 PM EDT [facility] Recurring Patient Referrer: MARLENE LANDA MD 07/07/2020 09: 34:00 AM EDT [facility] Immunizations Vaccine Date Status Description Data Source(s) COVID-19 VACC, MRNA(PFIZER)/PF 07/08/2021 12:00:00 AM EDT completed [facility] COVID-19 VACCINE Pfizer 07/08/2021 12:00:00 AM EDT completed [facility] Vaccine Series Complete: YESThis Data wa s Submitted to [facility] Via [employer]. Pneumococcal conjugate PCV 13 02/16/2021 09:10:00 AM EDT completed MED[facility] ([facility]) COVID-19 VACCINE Pfizer 11/30/2020 12:00:00 AM EST completed [facility] Vaccine Series Complete: YESThis Data wa s Submitted to [facility] Via [employer]. COVID-19 VACCINE Pfizer 11/11/2020 12:00:00 AM EST completed [facility] Vaccine Series Complete: NOThis Data was Submitted to [facility] Via [employer]. This CVX code allows reporting of a vacc ination when formulation is unknown (for example, when recording a Influenza vaccination when noted on a vaccination card) 06/23/2020 11:47:00 AM EDT completed MEDEN T ([facility]) INFLUENZA VACCINE QUADRIVALENT (65 YR UP)/MF59 C.1/PF 06/23/2020 12:00:00 AM EDT completed [facility] Medications Medication Brand Name Start Date Product Form Dose Route Admi nistrative Instructions Pharmacy Instructions Status Indications Reaction Description Data Source(s) Acetaminophen 325 MG / Hydrocodone Bitartrate 5 MG Ora l Tablet Hydrocodone Bitartrate/Acetaminophen 07/14/2021 12:00:00 AM EDT ORAL completed MEDENT ([facility], ) Acetaminophen 325 MG / Hydrocodone [...] 06/26/2021 12:00:00 AM EDT ORAL active [facility] 240 mcg/0.7 mL 06/23/2021 12:00:00 AM [...] 12:00:00 AM EDT ORAL active MEDENT ([facility]) 300 mg 02/16/2021 12:00:00 AM EDT capsule 540 TAKE TWO CAPSULES BY MOUTH THREE TIMES A DAY TAKE TWO CAPSULES BY MOUTH THREE TIMES A DAY SOLD: [facility] Cephalexin 500 MG Oral Capsule CEPHALEXIN 01/15/2021 12:00:00 AM EDT capsule 14 TAKE ONE CAPSULE BY MOUTH TWICE A DAY TAKE ONE CAPSULE BY [facility] TWICE A DAY SOLD: 01/15/2021 [facility] [...] CAPSULE BY MOUTH EVERY DAY SOLD: 01/12/2021 [facility] 0.4 mg 01/09/2021 12:00:00 AM EDT [...] Unspecified 11/30/2020 12:00:00 AM EST completed [facility] ([facility]) Medication administered onsite Covid-19 vaccine, Unspecified 11/11/2020 12:00:00 AM EST completed [facility] ([facility]) Medication administered onsite doxycycline hyclate [...] type / Coverage type Policy ID Covered constitution party ID Covered constitution party's relationship to carter Policy Carter Plan Information POMCO [id number] SP [id number] POMCO [id number] SP [id number] DME Jurisdiction A OHIC C [id number] SELF [id number] MEDICARE [id number] SP [id number] A Medicare Natl Govt Servic Medicare Primary [id number] Self [id number] Medicare Natl Govt Servic Medicare Primary [id number] Self [id number] Medicare Natl Govt Servic Medicare Primary [id number] Self [id number] Medicare Natl Govt Servic Medicare Primary [id number] Self [id number] Medicare Natl Govt Servic Medicare Primary [id number] Self [id number] Medicare Natl Govt Servic Medicare Primary [id number] Self [id number] Medicare C [id number] SELF [id number] A Medicare Natl Govt Servic Medicare Primary [id number] Self [id number] Medicare C [id number] SELF [id number] X23 Medicare Natl Govt Servic Medicare Primary [id number] Self MEDICARE [id number] SP [id number] X23 Medicare Part B [facility] [id number] 0 [id number] Medicare Natl Govt Servic Medicare Primary [id number] Self [id number] [facility] / UMR F [id number] SELF [id number] [employer] F [id number] SELF [id number] Umr (New Pomco) Medigap Part B [id number] Self [id number] UMR F [id number] SELF [id number] 900 [facility] Jurisdiction A OHIC C [id number] SELF [id number] UMR F [id number] SELF [id number] Medicare C [id number] SELF [id number] X23 Medicare Medicare Primary [id number]. [id number] Self [id number] [facility] Ppo Medigap Part B [id number]. 24366.0 Self [id number] POMCO PPO O [id number] S [id number] MEDICARE C [id number] S [id number] A MEDICARE [id number] SP [id number] A [facility] Ppo Medigap Part B [id number]. 74853.0 Self [id number] [facility] Ppo Medigap Part B [id number] [id number]. 48884.0 Self [id number] [facility] Ppo Medigap Part B [id number] Self [id number] Pomco [id number] 0 [id number] UMR [facility] [id number] SP [id number] POMCO PPO S [id number] S [id number] UMR HEA [id number] S [id number] MEDICARE MCA [id number] S [id number] MEDICARE MCA [id number] S [id number] UMR O [id number] S [id number] MEDICARE C [id number] S [id number] X23 Pomco/Umr (Old) Medigap Part B [id number] Self [id number] UMR F [id number] SELF [id number] UMR [facility] [id number] SP [id number] Pomco/Umr (Old) Medigap Part B [id number] [id number] Self [id number] Pomco/Umr (Old) Medigap Part B [id number] 3.3.227.99.4595.51142.0 Self [id number] UMR F [id number] SELF [id number] Pomco/Umr (Old) Medigap Part B [id number] 3.3.227.99.4595.86485.0 Self [id number] Umr Commercial [id number] 2.16.840.1.372848.3.227.99.8646.577550. 0 Self [id number] Medicare [place]/N[place] Medicare Primary [id number] Self [id number] Pomco/Umr (Old) Medigap Part B [id number] 2.16.840.1.10077 3.3.227.99.4595.00294.0 Self [id number] Medicare Dme Medigap Part B [id number] .936.19853.0 Self [id number] Medicare Medicare Primary [id number] 2.16.840.1.568200.3.227. 99.936.94240.0 Self [id number] [facility] Medigap Part B [id number] 6.0 Self [id number] Medicare Dme Medigap Part B [id number] .[id number] Self [id number] Medicare Medicare Primary [id number] 2.16.840.1.283491.3.227. 99.936.60266.0 Self [id number] Medicare Dme Medigap Part B [id number] .[id number] Self [id number] Medicare Medicare Primary [id number]. [id number] Self [id number] Medicare [facility] Part B [id number] .[id number] Self [id number] Medicare Medicare Primary [id number]. [id number] Self [id number] Problems, Conditions, and Diagnoses Code Display Name Description Problem Type Effective Dates Data Source(s) M79.604 Pain in right lower limb Pain in right lower limb Prob amara 02/27/2021 12:00:00 AM EDT SHAE ([facility] ) Surgeries/Procedures Procedure Description Date Indications Data Source(s) OFFICE OUTPATIENT VISIT 25 MINUTES 06/24/2021 12:00:00 AM EDT SHAE ([facility]) OFFICE OUTPATIENT VISIT 25 MINUTES 06/09/2021 12:00:00 AM EDT SHAE ([facility]) PHYSICIAN TELEPHONE EVALUATION 11-20 MIN 06/02/2021 12 :00:00 AM EDT SH[facility] ([facility] ) Chronic Care MGMT 20 Mins Clinical Staff Time Per Calendar [facility] 06/01/2021 12:00:00 AM EDT SH[facility] ([facility] ) Chronic Care MGMT 20 Mins Clinical Staff Time Per Calendar [facility] 05/06/2021 12:00:00 AM EDT SH[facility] ([facility] ) ECG ROUTINE ECG W/LEAST 12 LDS W/I&R 04/15/2021 12:00: 00 AM EDT SH[facility] ([facility]) OFFICE OUTPATIENT VISIT 25 MINUTES 04/15/2021 12:00:00 AM EDT SH[facility] ([facility]) Chronic Care MGMT 20 Mins Clinical Staff Time Per Calendar [facility] 04/07/2021 12:00:00 AM EDT SH[facility] ([facility] ) MRI SPINAL CANAL CERVICAL W/O CONTRAST MATRL 12:00:00 AM EDT SHAE ([facility] ) MRI SPINAL CANAL CERVICAL W/O CONTRAST MATRL 12:00:00 AM EDT MEDENT ([facility] ) PHYSICIAN TELEPHONE EVALUATION 5-10 MIN 02/27/2021 12: 00:00 AM EDT MED[facility] ([facility] ) Needle electromyography, each extremity, with related paraspinal areas, when performed, done with nerve conduction, amplitude and latency/velocity study; complete, five or more muscles studied, innervated by three or more nerves or four or more spinal levels (list separately in addition to the code for primary procedure). 02/26/2021 12:00:00 AM EDT MEDEN T ([facility] ) Needle electromyography, each extremity, with related paraspinal areas, when performed, done with nerve conduction, amplitude and latency/velocity study; complete, five or more muscles studied, innervated by three or more nerves or four or more spinal levels (list separately in addition to the code for primary procedure). 02/26/2021 12:00:00 AM EDT MEDEN T ([facility] ) Nerve Conduction 11-12 Studies 02/26/2021 12:00:00 AM EDT [facility] ([facility] ) OFFICE OUTPATIENT VISIT 40 MINUTES 02/24/2021 12:00:00 AM EDT MED[facility] ([facility] ) Chronic Care MGMT 20 Mins Clinical Staff Time Per Calendar [facility] 02/23/2021 12:00:00 AM EDT [facility] ([facility] ) MRI SPINAL CANAL LUMBAR W/O CONTRAST MATERIAL 02/21/20 12:00:00 AM EDT MED[facility] ([facility] ) MRI SPINAL CANAL LUMBAR W/O CONTRAST MATERIAL 02/21/20 12:00:00 AM EDT [facility] ([facility] ) PHYSICIAN TELEPHONE EVALUATION 11-20 MIN 02/20/2021 12 :00:00 AM EDT MED[facility] ([facility] ) OFFICE OUTPATIENT VISIT 25 MINUTES 02/16/2021 12:00:00 AM EDT [facility] ([facility]) Complex Chronic Care Management SVC 1St 60 Min 021 12:00:00 AM EDT [facility] ([facility]) Complex Chronic Care MGMT Service Ea Addl 30 Min 04/19 /2021 12:00:[address] [facility] ([facility]) OFFICE OUTPATIENT VISIT 10 MINUTES 01/23/2021 12:00:00 AM EDT [facility] ([facility]) Chronic Care Management Services Ea Addl 20 Min 2020 12:00:00 AM EDT [facility] ([facility]) Chronic Care MGMT 20 Mins Clinical Staff Time Per Calendar M ont 2020 12:00:[address] [facility] ([facility] ) ECG ROUTINE ECG W/LEAST 12 LDS W/I&R 08/18/2020 12:00: [address] [facility] ([facility]) Results ID Date Data Source [id number] 07/14/2021 01:40:00 PM EDT [facility] ([facility], ) Name Value Range Interpretation Code Description Data Allie rce(s) Supporting Document(s) Surgical pathology study Laboratory test result [facility] ([facility], ) FINAL DIAGNOSIS Submitted as "hernia [...] serially sectioned to reveal benign fibroadipose tissue. [employer] sections submitted in one. -OA 07/15/2021 - 1346 Signed ERROL KEITH MD 07/16/2021 1018 ID Date Data Source [id number] 07/09/2021 10:25:[address] [facility] ([facility]) Name Value Range Interpretation Code Description Data Allie rce(s) Supporting Document(s) Coronavirus 2019 Nasopharygeal Laboratory test result [facility] ASSAY INFORMATION: Real Time RT-PCR NOTE: The COVID-19 assay has been cleared by the U.S. Food and Drug Administration under the Emergency Use Authorization (EUA). [facility] are designated as high complexity laboratories by the Clinical Laboratory Improvement Amendments of 1988(CLIA) and are qualified to perform this test. 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 He is currently not working but he intends to return to work soon. The patient resides in [place]. AssessmentASSESSMENT1. Postlaminectomy syndrome, lumbar spine.2. Aftercare following [...] rce(s) Supporting Document(s) ID Date Data Source [id number] 06/09/2021 02:50:[address] [facility] ([facility]) Name Value Range Interpretation Code Description Data Allie rce(s) Supporting Document(s) Prostate specific Ag [Mass/volume] in Serum or Plasma 0.46 ng/mL [facility] ([facility]) This assay was performed on the Siemens Dimension EXL using the B- Galactosidase/CPRG methodology and should not be compared interchangeably with other methods. The PSA should not be used alone as a screening test for the presence or absence of malignant disease. ID Date Data Source [id number] 06/09/2021 02:49:[address] [facility] ([facility]) Name Value Range Interpretation Code Description Data Allie rce(s) Supporting Document(s) Thyrotropin [Units/volume] in Serum or Plasma by Detec tion limit <= 0.05 mIU/L 1.17 uIU/mL 0.36-3.[address] [facility] ([facility] ) ID Date Data Source [id number] 06/09/2021 02:49:[address] [facility] ([facility]) Name Value Range Interpretation Code Description Data Allie rce(s) Supporting Document(s) Creatinine 0.9 mg/dL 0.6-1.3 [facility] Glucose [Mass/volume] in Serum or Plasma 78 mg/dL 74-99 [facility] ([facility]) 100-125 mg/dL PRE-DIABETES/FASTING >126 mg/dL DIABETES/FASTING Urea nitrogen [Mass/volume] in Serum or Plasma 11 mg/dL 7-18 [facility] ([facility]) Sodium [Moles/volume] in Serum or Plasma 141 meq/L 136-145 [facility] ([facility]) Potassium [Moles/volume] in Serum or Plasma 4.1 meq/L 3.5-5.1 [facility] ([facility]) Chloride [Moles/volume] in Serum or Plasma 108 meq/L 98-107 [facility] ([facility]) Calcium [Mass/volume] in Serum or Plasma 8.8 mg/dL 8.5-10.1 [facility] ([facility]) Alkaline phosphatase isoenzyme [Units/volume] in Serum or Pl asma 104 mg/dL 46-116 [facility] ([facility]) Carbon dioxide, total [Moles/volume] in Serum or Plasma 27 meq/L 21 -32 [facility] ([facility]) Total Bilirubin 0.5 mg/dL 0.2-1.0 [facility] ([facility]) Alanine aminotransferase [Enzymatic activity/volume] in Seru m or Plasma 45 U/L 12-78 [facility] ([facility]) Aspartate aminotransferase [Enzymatic activity/volume] in Serum or Plasma 28 U/L 15-37 [facility] ([facility] ) Proteinase 3 Ab [Units/volume] in Serum 6.6 g/dL 6.4-8.2 [facility] ([facility]) Albumin [Mass/volume] in Serum or Plasma 3.6 g/dL 3.4-5.0 [facility] ([facility]) A/G Ratio 1.20 CALC 1.00-1.[address] [facility]) Glomerular filtration rate/1.73 sq M pre dicted among non-blacks [Volume Rate/Area] in Serum or Plasma by Creatinine-based formula (MDRD) Laboratory test result [facility] ([facility] ) Glomerular filtration rate/1.73 sq M pre dicted among blacks [Volume Rate/Area] in Serum or Plasma by Creatinine-based formula (MDRD) Laboratory test result [facility] ([facility]) <content>CHRONIC KIDNEY DISEASE STAGING PER NKF</content>
<content></content>
<content>STAGE I & II GFR >= 60 NORMAL TO MILDLY DECREASED</content>
<content>STAGE III GFR 30-59 MODERATELY DECREASED</content>
<content>STAGE IV GFR 15-29 SEVERELY DECREASED</content>
<content>STAGE V GFR <15 VERY LITTLE GFR LEFT</content>
<content>ESRD GFR <15 ON CRIB TENDER</content>
<content></content> ID Date Data Source [id number] 06/09/2021 02:49:00 PM EDT [facility] ([facility]) Name Value Range Interpretation Code Description Data Allie rce(s) Supporting Document(s) Leukocytes [#/volume] in Blood by Automated count 5.0 x10*3/UL 4.1-10 .9 [facility] ([facility]) Hemoglobin [Mass/volume] in Blood 15.2 g/dL 12.0-18.0 [facility] ([facility]) Hematocrit [Volume Fraction] of Blood by Automated count 43.1 % 3 7.0-51.0 [facility] ([facility]) Erythrocytes [#/volume] in Blood by Automated count 4.64 x10*6/UL 4.2 0-6.30 [facility] ([facility]) MCHC 35.3 g/dL 31.0-38.0 [facility] ([place] [facility]) MCH 32.8 pg 26.0-32.0 [facility] ([place] [facility]) MCV 92.9 fL 80.0-97.0 [facility] ([place] [facility]) Platelets [#/volume] in Blood by Automated count 240 x10*3/UL 140-440 [facility] ([facility]) Erythrocyte distribution width [Ratio] by Automated count 13.2 % 11.6-13.7 [facility] ([facility]) MPV 7.9 FL 7.8-11.0 [facility] ([place] [facility]) Mid % 8.2 % 1.7-9.3 [facility] ([place] [facility]) Neut % 58.9 % 37.0-92.0 [facility] ([place] [facility]) Lymph % 32.9 % 10.0-58.5 [facility] ([place] [facility]) Mid # 0.5 x10*3/UL 0.1-0.6 [facility] ([facility]) Neut # 2.9 x10*3/UL 2.0-7.8 [facility] ([facility]) Lymph # 1.6 x10*3/UL 0.6-4.1 [facility] ([facility]) ID Date Data Source [id number] 05/05/2021 02:51:47 PM EDT [facility] Corey SerratoOB: 1945Provider: Gilberto [...] document was dictated and electronically signed using Actimize software. A reasonable attempt at proof reading has been made to minimize errors. Please call with any questions. Signatures Electronically signed by : Bear Dawn; May 04 2021 2:54PM EST (Author) Electronically signed by : Vick Magana M.D.; May 05 2021 2:51PM EST Name Value Range Interpretation Code Description Data Allie rce(s) Supporting Document(s) ID Date Data Source [id number] 04/20/2021 12:00:35 PM EDT [facility] Corey SerratoOB: 1945Provider: Julio [...] laminectomy; ADITI = N; Verified Transmission to [facility] #15; Last Updated By: DNA SEQ; 04/17/2021 5:04:03 PMReference #: [id number] Physical Therapy (SOS) - Spinal Physical Therapy [...] rce(s) Supporting Document(s) ID Date Data Source [id number] 04/15/2021 10:02:00 AM EDT [facility] ([facility]) Name Value Range Interpretation Code Description Data Allie rce(s) Supporting Document(s) Prothrombin Time 13.0 s 12.5-14.3 [facility] ([facility]) Partial Thromboplastin Time 26.6 s 24.2-38.5 MA [facility] ([facility]) Inr 0.96 [facility]) THERAPUTIC HUMAN INR VALUES INDICATIONS NORMAL RANGES PROPHYLAXIS/TREATMENT OF: VENOUS THROMBOSIS 2.0-3.0 PULMONARY EMBOLISM 2.0-3.0 PREVENTION OF SYSTEMIC EMBOLISM FROM: TISSUE HEART VALVES 2.0-3.0 ACUTE MYOCARDIAL INFARCTION 2.0-3.0 VALVULAR HEART DISEASE 2.0-3.0 ATRIAL FIBRILLATION 2.0-3.0 MECHANICAL VALVES(HIGH RISK) 2.5-3.5 RECURRENT MYOCARDIAL INFARCTION 2.5-3.5 ID Date Data Source [id number] 04/15/2021 10:01:00 AM EDT [facility] ([facility]) Name Value Range Interpretation Code Description Data Allie rce(s) Supporting Document(s) Urea nitrogen [Mass/volume] in Serum or Plasma 16 mg/dL 7-18 [facility] ([facility]) Glucose [Mass/volume] in Serum or Plasma 107 mg/dL 74-99 [facility] ([facility]) 100-125 mg/dL PRE-DIABETES/FASTING >126 mg/dL DIABETES/FASTING Sodium [Moles/volume] in Serum or Plasma 141 meq/L 136-145 [facility] ([facility]) Potassium [Moles/volume] in Serum or Plasma 4.2 meq/L 3.5-5.1 [facility] ([facility]) Creatinine 1.0 mg/dL 0.6-1.3 [facility]) Chloride [Moles/volume] in Serum or Plasma 104 meq/L 98-107 [facility] ([facility]) Carbon dioxide, total [Moles/volume] in Serum or Plasma 27 meq/L 21 -32 [facility] ([facility]) Calcium [Mass/volume] in Serum or Plasma 8.5 mg/dL 8.5-10.1 [facility] ([facility]) Aspartate aminotransferase [Enzymatic activity/volume] in Serum or Plasma 30 U/L 15-37 [facility] ([facility] ) Total Bilirubin 0.7 mg/dL 0.2-1.0 [facility] ([facility]) Alkaline phosphatase isoenzyme [Units/volume] in Serum or Pl asma 93 mg/dL 46-116 [facility] ([facility]) Alanine aminotransferase [Enzymatic activity/volume] in Seru m or Plasma 50 U/L 12-78 [facility] ([facility]) Proteinase 3 Ab [Units/volume] in Serum 6.3 g/dL 6.4-8.2 [facility] ([facility]) Albumin [Mass/volume] in Serum or Plasma 3.6 g/dL 3.4-5.0 [facility] ([facility]) Glomerular filtration rate/1.73 sq M pre dicted among blacks [Volume Rate/Area] in Serum or Plasma by Creatinine-based formula (MDRD) Laboratory test result [facility] <content>CHRONIC KIDNEY DISEASE STAGING PER NKF</content>
<content></content>
<content>STAGE I & II GFR >= 60 NORMAL TO MILDLY DECREASED</content>
<content>STAGE III GFR 30-59 MODERATELY DECREASED</content>
<content>STAGE IV GFR 15-29 SEVERELY DECREASED</content>
<content>STAGE V GFR <15 VERY LITTLE GFR LEFT</content>
<content>ESRD GFR <15 ON CRIB TENDER</content>
<content></content> A/G Ratio 1.33 CALC 1.00-1.90 [facility] ([facility]) Glomerular filtration rate/1.73 sq M pre dicted among non-blacks [Volume Rate/Area] in Serum or Plasma by Creatinine-based formula (MDRD) Laboratory test result [facility] ID Date Data Source [id number] 04/15/2021 10:01:00 AM EDT [facility] Name Value Range Interpretation Code Description Data Allie rce(s) Supporting Document(s) Leukocytes [#/volume] in Blood by Automated count 4.7 x10*3/UL 4.1-10 .9 [facility] ([facility]) Hemoglobin [Mass/volume] in Blood 15.3 g/dL 12.0-18.0 [facility] Erythrocytes [#/volume] in Blood by Automated count 4.79 x10*6/UL 4.2 0-6.30 [facility] MCV 92.4 fL 80.0-97.0 [facility] ([facility]) Hematocrit [Volume Fraction] of Blood by Automated count 44.2 % 3 7.0-51.[address] [facility] MCHC 34.7 g/dL 31.0-38.0 [facility] ([place] [facility]) MCH 32.1 pg 26.0-32.0 [facility] ([place] [facility]) Erythrocyte distribution width [Ratio] by Automated count 13.4 % 11.6-13.[address] [facility] Platelets [#/volume] in Blood by Automated count 194 x10*3/UL 140-440 [facility] MPV 7.8 FL 7.8-11.0 [facility] ([place] [facility]) Mid % 6.8 % 1.7-9.3 [facility] ([place] [facility]) Lymph % 34.2 % 10.0-58.5 [facility] ([place] [facility]) Neut # 2.7 x10*3/UL 2.0-7.8 [facility] Lymph # 1.6 x10*3/UL 0.6-4.1 [facility] ([facility]) Neut % 59.0 % 37.0-92.0 [facility]) Mid # 0.4 x10*3/UL 0.1-0.6 [facility] ([facility]) ID Date Data Source [id number] 03/23/2021 05:02:17 PM EDT [facility] Corey EldereDOB: 1945Provider: Julio [...] patient was seen by a neurologist [place] and was referred to me. 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 Results/Data OtherMRI of the lumbar spine previously [...] D AW = N; Verified Transmission to [facility] #15; Last Updated By: Hetcor Echeverria; 03/20/2021 1:52:06 PM X-Ray I Lumbosacral [...] Name Value Range Interpretation Code Description Data [facility] Supporting Document(s) ID Date Data Source [id number] 03/05/2021 10:24:37 AM EDT [facility]: Corey ElderEnderOB: 1945Provider: Gilberto [...] his son. Results/Data [facility] shows multilevel [...] Maintenance; ADITI = N; Verified Transmission to [facility] #15; Last Updated By: DNA SEQ; 03/03/2021 3:34:02 PM Plan, Assessment and Recommendation(s) [...] document was dictated and electronically signed using Actimize software. A reasonable attempt at proof reading has been made to minimize errors. Please call with any questions. Signatures Electronically signed by : Bear Dawn; Mar 03 2021 4:37PM EST (Author) Electronically signed by : Vick Magana M.D.; Mar 05 2021 10:24AM EST Name Value Range Interpretation Code Description Data Allie rce(s) Supporting Document(s) ID Date Data Source [id number] 02/13/2021 08:25:00 AM EDT [facility] ([facility]) Name Value Range Interpretation Code Description Data Allie rce(s) Supporting Document(s) Cholesterol [Mass/volume] in Serum or Plasma 182 mg/dL 131-200 [facility] ([facility]) Triglyceride [Mass/volume] in Serum or Plasma 93 mg/dL 30-150 [facility] ([facility]) Cholesterol in LDL [Mass/volume] in Serum or Plasma by calcu lation 111 CALC 50-159 [facility] ([facility]) Cholesterol in HDL [Mass/volume] in Serum or Plasma 52 mg/dL 35-60 [facility] ([facility]) ID Date Data Source [id number] 02/13/2021 08:25:00 AM EDT [facility] ([facility]) Name Value Range Interpretation Code Description Data Allie rce(s) Supporting Document(s) Urea nitrogen [Mass/volume] in Serum or Plasma 16 mg/dL 7-18 [facility] ([facility]) Glucose [Mass/volume] in Serum or Plasma 106 mg/dL 74-99 [facility] ([facility]) 100-125 mg/dL PRE-DIABETES/FASTING >126 mg/dL DIABETES/FASTING Creatinine 1.0 mg/dL 0.6-1.3 [facility] ([facility]) Sodium [Moles/volume] in Serum or Plasma 142 meq/L 136-145 [facility] ([facility]) Chloride [Moles/volume] in Serum or Plasma 105 meq/L 98-107 [facility] ([facility]) Potassium [Moles/volume] in Serum or Plasma 4.1 meq/L 3.5-5.1 [facility] ([facility]) Calcium [Mass/volume] in Serum or Plasma 8.5 mg/dL 8.5-10.1 [facility] ([facility]) NOTE: CALCIUM,ALK PHOS VERIFIED Alkaline phosphatase isoenzyme [Units/volume] in Serum or Pl asma 146 mg/dL 46-116 [facility] ([facility]) Carbon dioxide, total [Moles/volume] in Serum or Plasma 29 meq/L 21 -32 [facility] ([facility]) Aspartate aminotransferase [Enzymatic activity/volume] in Serum or Plasma 37 U/L 15-37 [facility] ([facility] ) Total Bilirubin 0.6 mg/dL 0.2-1.0 [facility] ([facility]) Alanine aminotransferase [Enzymatic activity/volume] in Seru m or Plasma 64 U/L 12-78 [facility] ([facility]) Albumin [Mass/volume] in Serum or Plasma 3.9 g/dL 3.4-5.0 [facility] ([facility]) Proteinase 3 Ab [Units/volume] in Serum 6.9 g/dL 6.4-8.2 [facility] ([facility]) Glomerular filtration rate/1.73 sq M pre dicted among non-blacks [Volume Rate/Area] in Serum or Plasma by Creatinine-based formula (MDRD) Laboratory test result [facility] ([facility] ) A/G Ratio 1.30 CALC 1.00-1.90 [facility] ([facility]) Glomerular filtration rate/1.73 sq M pre dicted among blacks [Volume Rate/Area] in Serum or Plasma by Creatinine-based formula (MDRD) Laboratory test result [facility] ([facility]) <content>CHRONIC KIDNEY DISEASE STAGING PER NKF</content>
<content></content>
<content>STAGE I & II GFR >= 60 NORMAL TO MILDLY DECREASED</content>
<content>STAGE III GFR 30-59 MODERATELY DECREASED</content>
<content>STAGE IV GFR 15-29 SEVERELY DECREASED</content>
<content>STAGE V GFR <15 VERY LITTLE GFR LEFT</content>
<content>ESRD GFR <15 ON CRIB TENDER</content>
<content></content> ID Date Data Source [id number] 01/30/2021 09:53:12 PM EDT [facility] Corey SerratoOB: 1945Provider: Mayur [...] OF PRESENT ILLNESSMr. Sandhu is a 75-year-old uzfmy-ixsl-upfruyft male who presents for an initial evaluation [...] pain; Ordered By: Milagros Shin Performed: Due: [id number]; Last Updated By: Felicitas Fernandez; 01/28/2021 1:23:01 [...] rce(s) Supporting Document(s) ID Date Data Source [id number] 12/01/2020 05:23:25 PM EST [facility] Corey SerratoOB: 1945Provider: Ilsa [...] document was dictated and electronically signed using [employer] software. A reasonable attempt at proof reading has been made to minimize errors. Please call with any questions. Signatures Electronically signed by : Rex Veliz PA-C; Dec 01 2020 1:48PM EST (Author) Electronically signed by : Milagros Shin M.D.; Dec 01 2020 5:23PM EST Name Value Range Interpretation Code Description Data Allie rce(s) Supporting Document(s) ID Date Data Source [id number] 10/21/2020 08:23:08 PM EST [facility]: Corey EldereDOB: 1945Provider: Milagros [...] Antigen [place] This lab was ordered by [facility] and reported by [facility]. ID Date Data Source [id number] 09/10/2020 12:44:41 PM EST [facility]: Corey ElderEnderOB: 1945Provider: Beth [...] in the office. Indication: pain/dysfunction.); Status:Complete; Done: [id number] Perform:SOS14 (General); Due:[id number]; Last Updated By:Shad Pennington; 09/10/2020 9:28:58 AM;Ordered; [...] rce(s) Supporting Document(s) ID Date Data Source [id number] 08/29/2020 06:55:57 AM EST [facility] Name Value Range Interpretation Code Description Data Allie rce(s) Supporting Document(s) SODIUM 142 mmol/L (136-145) [facility] POTASSIUM 4.4 mmol/L (3.6-5.2) [facility] CHLORIDE 109 mmol/L (100-108) H [facility] CO2 26 mmol/L (22-31) [facility] ANION GAP 7 mmol/L (7-16) [facility] UREA NITROGEN 19 mg/dL (7-24) [facility] CREATININE 1.08 mg/dL (0.80-1.30) [facility] BUN/CREAT RATIO 17.6 RATIO (10.0-20.0) [facility] GLUCOSE 118 mg/dL (70-99) H [facility] CALCIUM 7.5 mg/dL (8.4-10.2) L [facility] GFR >60 ml/min/1.73m2 (>59) [facility] GFR ( AMER) >60 ml/min/1.73m2 (>59) [facility] GFR INTERPRETATION [facility] --NORMAL KIDNEY FUNCTION OR MILD DISEASE - GFR >OR= 60CHRONIC KIDNEY DISEASE - GFR 15 - 59RENAL FAILURE - GFR <15 Est. GFR calculation based on the MDRDstudy equation, which assumes a steadystate for creatinine. Est. GFR should notbe used for medication dosing. ID Date Data Source [id number] 08/29/2020 06:30:32 AM EST [facility] Name Value Range Interpretation Code Description Data Allie rce(s) Supporting Document(s) WBC 10.5 10*3/uL (4.1-11.0) [facility] RBC 4.15 10*6/uL (4.60-6.10) L [facility] HGB 13.7 g/dL (13.5-18.0) [facility] HCT 39.1 % (41.0-53.0) L [facility] MCV 94.4 fL (80.0-95.0) [facility] MCH 33.1 pg (27.0-32.0) H [facility] MCHC 35.0 g/dL (32.0-36.0) [facility] RDW 12.9 % (10.5-14.5) [facility] PLT 198 10*3/uL (150-450) [facility] MPV 7.6 fL (7.1-10.7) [facility] ID Date Data Source [id number] 08/30/2020 11:56:00 AM EST [facility] [id number] [facility] [place], [place] [address]VDBHYEW NAME: KONSTANTIN SANDHU OF : 1945REPORT: OPERATIONPATIENT NUMBER: [id number] STATUS: IPMEDICAL RECORD NUMBER: [id number] OF ADMISSION: 08/28/2020DATE OF DISCHARGE:ROOM: 02DATE OF [...] loose bodies and osteophytes.FINAL IMPLANTS UTILIZED: Arthrex [place] system with a size 10 humerus,medium VaultLock glenoid, and 50 x 19 mm humeral head.OPERATIVE PROCEDURE: After identification of the patient and the correctoperative extremity in the pre-operative area, the patient was taken to theoperating room awake, alert, and in stable condition. Nlqowa-wcmoomjx-zvymqbvbi antibiotic was administered within one hour of [...] SUSANNA Prattictated: 08/28/2020 19:45DT: 08/28/2020 21:25Job #: [id number]: [facility] computer generated reports are not confirmed orauthenticated unless they are signed by the providerElectronically Authenticated by:MILAGROS SHIN MD On 08/30/2020 11:56 AM EST Name Value Range Interpretation Code Description Data Allie rce(s) Supporting Document(s) ID Date Data Source [id number] 08/28/2020 11:00:00 AM EST [facility] DATE OF EXAM: 08/28/2020AP view. Portabl e. INDICATION: Placement of right shoulder prosthesis. AP views of the right shoulder shows postoperative soft tissue edema and air. Shoulder prosthesis appears well placed with good alignment. No other significant finding. IMPRESSION: Right shoulder prosthesis in good position with normal alignment. No evidence of complication. Professional interpretation performed by [facility] Medical Imaging at [facility] End of diagnostic report for accession: [id number] Interpreted: Miguel Case MDTranscribed: 08/28/2020 10 :59 AMSigned: 08/28/2020 11:00 AM Miguel Case MD [facility] ACC # [id number] BILL # [id number] Name Value Range Interpretation Code Description Data Allie rce(s) Supporting Document(s) ID Date Data Source [id number] 08/25/2020 11:47:00 AM EST [facility] Name Value Range Interpretation Code Description Data Allie rce(s) Supporting Document(s) SARS coronavirus 2 RNA [Presence] in Res piratory specimen by KIRILL with probe detection [facility] This lab was ordered by [facility] - Surgical and reported by [employer]. ID Date Data Source [id number] 08/25/2020 12:15:18 PM EST [facility]: Corey ElderEnderOB: 1945Provider: Ilsa [...] Office VisitDME Supply Size 1 (S,M,L) : [place] Plan, Assessment and Recommendation(s) The plan for [...] document was dictated and electronically signed using Actimize software. A reasonable attempt at proof reading has been made to minimize errors. Please call with any questions. Signatures Electronically signed by : Rex Veliz PA-C; Aug 22 2020 2:49PM EST (Author) Electronically signed by : Milagros Shin M.D.; Aug 25 2020 12:15PM EST Name Value Range Interpretation Code Description Data Allie rce(s) Supporting Document(s) ID Date Data Source [id number] 08/19/2020 02:21:37 PM EST [facility] SPEC EXP DATE 08/31/2020PATI ENT ABO/Rh O POSITIVEANTIBODY SCREEN NEGATIVETESTING SITE PERFORMED AT [address] [place] [address] BANK COMMENT BLOOD TYPE CONFIRMED. Name Value Range Interpretation Code Description Data Allie rce(s) Supporting Document(s) ID Date Data Source [id number] 08/20/2020 12:57:58 PM EST [facility] Name Value Range Interpretation Code Description Data Allie rce(s) Supporting Document(s) SPECIMEN DESCRIPTION [facility] STAPH SCREEN RESULTS (ONEGSA) [facility] COMMENT [facility] GENE TO DETECT STAPH AUREUS. (2) RT-P CR WAS PERFORMED FOR THE mecA AND [employer] GENES TO DETECT METHICILLIN RESISTANCE IN STAPH AUREUS. ID Date Data Source [id number] 08/20/2020 11:17:59 AM EST [facility] SPECIMEN DESCRIPTION MIDSTREAM UR INE,CLEAN CATCHCULTURE RESULTS NO GROWTHREPORT STATUS FINAL 08/20/2020 Name Value Range Interpretation Code Description Data Allie rce(s) Supporting Document(s) ID Date Data Source [id number] 08/19/2020 01:00:36 PM EST [facility] Name Value Range Interpretation Code Description Data Allie rce(s) Supporting Document(s) SODIUM 143 mmol/L (136-145) [facility] POTASSIUM 4.4 mmol/L (3.6-5.2) [facility] CHLORIDE 110 mmol/L (100-108) H [facility] CO2 26 mmol/L (22-31) [facility] ANION GAP 7 mmol/L (7-16) [facility] UREA NITROGEN 15 mg/dL (7-24) [facility] CREATININE 0.87 mg/dL (0.80-1.30) [facility] BUN/CREAT RATIO 17.2 RATIO (10.0-20.0) [facility] GLUCOSE 85 mg/dL (70-99) [facility] CALCIUM 8.6 mg/dL (8.4-10.2) [facility] GFR >60 ml/min/1.73m2 (>59) [facility] GFR ( AMER) >60 ml/min/1.73m2 (>59) [facility] GFR INTERPRETATION [facility] --NORMAL KIDNEY FUNCTION OR MILD DISEASE - GFR >OR= 60CHRONIC KIDNEY DISEASE - GFR 15 - 59RENAL FAILURE - GFR <15 Est. GFR calculation based on the MDRDstudy equation, which assumes a steadystate for creatinine. Est. GFR should notbe used for medication dosing. ID Date Data Source [id number] 08/19/2020 12:41:50 PM EST [facility] Name Value Range Interpretation Code Description Data Allie rce(s) Supporting Document(s) COLOR [facility] [address] [facility] [address] APPEARANCE [facility] SPEC GRAV URINE 1.022 (1.003-1.030) [facility] PH URINE 5.0 (5.0-7.5) [facility] LEUK ESTERASE (NEG) [facility] NITRITE URINE (NEG) [facility] PROTEIN URINE (NEG) [facility] GLUCOSE URINE (NEG) [facility] KETONE URINE (NEG) [facility] UROBILINOGEN 1.0 mg/dL (0-1.0) [facility] BILIRUBIN URINE 1+ (NEG) A [facility] INTERFERING SUBSTANCES MAY CAUSE FALSEPO SITIVE BILIRUBIN, WHICH HAS BEENSHOWN TO BE CLINICALLY INSIGNIFICANT.CORRELATE WITH OTHER TESTING. BLOOD/HGB URINE (NEG) [facility] ID Date Data Source [id number] 08/19/2020 12:40:18 PM EST [facility] Name Value Range Interpretation Code Description Data Allie rce(s) Supporting Document(s) WBC 4.6 10*3/uL (4.1-11.0) [facility] [place] RBC 4.81 10*6/uL (4.60-6.10) [facility] HGB 15.7 g/dL (13.5-18.0) [facility] HCT 45.8 % (41.0-53.0) [facility] PERFORMED AT [address] [facility] [address] MCV 95.2 fL (80.0-95.0) H [facility] MCH 32.5 pg (27.0-32.0) H [facility] MCHC 34.2 g/dL (32.0-36.0) [facility] RDW 13.0 % (10.5-14.5) [facility] PLT 208 10*3/uL (150-450) [facility] MPV 7.7 fL (7.1-10.7) [facility] NEUT % 55.9 % (35.0-75.0) [facility] LYMPH % 29.2 % (16.0-52.0) [facility] MONO % 11.3 % (0.0-8.0) H [facility] EOS % 2.6 % (0.0-5.0) [facility] BASO % 1.0 % (0.0-4.0) [facility] NEUT # 2.6 10*3/uL (1.8-7.7) [facility] LYMPH # 1.3 10*3/uL (1.2-4.8) [facility] MONO # 0.5 10*3/uL (0.0-0.8) [facility] Eosinophils [#/volume] in Blood by Automated count 0.1 10*3/uL (0.0-0 .5) [facility] BASO # 0.0 10*3/uL (0.0-0.2) [facility] ID Date Data Source [id number] 08/18/2020 11:09:00 AM EST [facility] ([facility]) Name Value Range Interpretation Code Description Data Allie rce(s) Supporting Document(s) Thyrotropin [Units/volume] in Serum or Plasma by Detec tion limit <= 0.05 mIU/L 0.79 uIU/mL 0.36-3.74 [facility] ([facility] ) ID Date Data Source [id number] 08/18/2020 11:09:00 AM EST [facility] ([facility]) Name Value Range Interpretation Code Description Data Allie rce(s) Supporting Document(s) Glucose [Mass/volume] in Serum or Plasma 105 mg/dL 74-99 [facility] ([facility]) 100-125 mg/dL PRE-DIABETES/FASTING >126 mg/dL DIABETES/FASTING Urea nitrogen [Mass/volume] in Serum or Plasma 19 mg/dL 7-18 [facility] ([facility]) Potassium [Moles/volume] in Serum or Plasma 4.4 meq/L 3.5-5.1 [facility] ([facility]) Creatinine 0.9 mg/dL 0.6-1.3 [facility] ([facility]) Sodium [Moles/volume] in Serum or Plasma 143 meq/L 136-145 [facility] ([facility]) Chloride [Moles/volume] in Serum or Plasma 106 meq/L 98-107 [facility] ([facility]) Carbon dioxide, total [Moles/volume] in Serum or Plasma 29 meq/L 21 -32 [facility] ([facility]) Calcium [Mass/volume] in Serum or Plasma 8.3 mg/dL 8.5-10.1 [facility] ([facility]) NOTE: RESULT VERIFIED. Alkaline phosphatase isoenzyme [Units/volume] in Serum or Pl asma 95 mg/dL 46-116 [facility] ([facility]) Total Bilirubin 0.6 mg/dL 0.2-1.0 [facility] ([facility]) Albumin [Mass/volume] in Serum or Plasma 3.7 g/dL 3.4-5.0 [facility] ([facility]) Alanine aminotransferase [Enzymatic activity/volume] in Seru m or Plasma 45 U/L 12-78 [facility] ([facility]) Aspartate aminotransferase [Enzymatic activity/volume] in Serum or Plasma 31 U/L 15-37 [facility] ([facility] ) Proteinase 3 Ab [Units/volume] in Serum 6.4 g/dL 6.4-8.2 [facility] ([facility]) A/G Ratio 1.37 CALC 1.00-1.90 [facility] ([facility] [place] Glomerular filtration rate/1.73 sq M pre dicted among blacks [Volume Rate/Area] in Serum or Plasma by Creatinine-based formula (MDRD) Laboratory test result [facility] ([facility]) <content>CHRONIC KIDNEY DISEASE STAGING PER NKF</content>
<content></content>
<content>STAGE I & II GFR >= 60 NORMAL TO MILDLY DECREASED</content>
<content>STAGE III GFR 30-59 MODERATELY DECREASED</content>
<content>STAGE IV GFR 15-29 SEVERELY DECREASED</content>
<content>STAGE V GFR <15 VERY LITTLE GFR LEFT</content>
<content>ESRD GFR <15 ON CRIB TENDER</content>
<content></content> Glomerular filtration rate/1.73 sq M pre dicted among non-blacks [Volume Rate/Area] in Serum or Plasma by Creatinine-based formula (MDRD) Laboratory test result [facility] ([facility] ) ID Date Data Source [id number] 08/18/2020 11:09:00 AM EST [facility] ([facility]) Name Value Range Interpretation Code Description Data Allie rce(s) Supporting Document(s) Leukocytes [#/volume] in Blood by Automated count 4.4 x10*3/UL 4.1-10 .9 [facility] ([facility]) Hemoglobin [Mass/volume] in Blood 15.4 g/dL 12.0-18.0 [facility] ([facility]) Erythrocytes [#/volume] in Blood by Automated count 4.78 x10*6/UL 4.2 0-6.30 [facility] ([facility]) MCV 91.7 fL 80.0-97.0 [facility] ([facility] [place]) MCH 32.2 pg 26.0-32.0 [facility] ([facility]) Hematocrit [Volume Fraction] of Blood by Automated count 43.9 % 3 7.0-51.0 [facility] ([facility]) MCHC 35.0 g/dL 31.0-38.0 [facility] ([facility]) Erythrocyte distribution width [Ratio] by Automated count 12.8 % 11.6-13.7 [facility] ([facility]) MPV 8.1 FL 7.8-11.0 [facility] ([facility]) Platelets [#/volume] in Blood by Automated count 199 x10*3/UL 140-440 [facility] ([facility]) Lymph % 25.5 % 10.0-58.5 [facility] ([facility]) Neut % 68.3 % 37.0-92.0 [facility] ([facility]) Mid % 6.2 % 1.7-9.3 [facility] ([facility]) Lymph # 1.1 x10*3/UL 0.6-4.1 [facility] ([facility]) Mid # 0.3 x10*3/UL 0.1-0.6 [facility] ([facility]) Neut # 3.0 x10*3/UL 2.0-7.8 [facility] ([facility]) ID Date Data Source [id number] 07/25/2020 12:00:00 AM EDT [facility] Milagros Shin MD Patient Name: COREY [id number] Date of : 1945[place] [id number] Date of Exam: 07/25/2020#: Fax: [phone] EXAM: MRI SHOULDER RIGHT W/O CONTRASTCLINICAL INFORMATION: Chronic atraumatic pain.There are no prior right shoulder MRI examinations for comparison.3T multiplanar MRI imaging of the right shoulder was obtained using varioussequences.There is kgdu-di-geagecmv hypertrophic degenerative change seen involvingthe acromioclavicular joint [...] Other findings as described above.Accredited by the [employer] in MR.ALBERTA Jacome/Morgan you for referring COREY SANDHU to our office. Electronically Signed - JASON TODD DO 07/28/20 16:49 Name Value Range Interpretation Code Description Data Allie rce(s) Supporting Document(s) ID Date Data Source [id number] 07/08/2020 08:42:38 PM EDT [facility]: Corey EldereDOB: 1945Provider: Beth [...] surgical planning .Ok to have done in [place] . Due: [id number]; Last Updated By: Felicitas Fernandez; 07/07/2020 10:17:18 [...] Value Range Interpretation Code Description Data Source(s) Systolic blood pressure 131 mm[Hg] 131 mm[Hg] M [facility] ([facility]) Diastolic blood pressure 87 mm[Hg] 87 mm[Hg] [facility] ([facility]) Body temperature 98.2 [degF] 98.2 [degF] [facility] ([facility]) Body height 75 [in_i] 75 [in_i] [facility] ([facility]) 6'3" Body weight 285.25 [lb_av] 285.25 [lb_av] [facility] ([facility]) Body mass index (BMI) [Ratio] 35.6 kg/m2 35.6 k g/m2 [facility] ([facility]) Zapata body weight 196 [lb_av] 196 [lb_av] [facility] ([facility]) Body weight 129.389 kg 129.389 kg [facility] ([facility]) Body surface area Derived from formula 2.55 m2 2.55 m2 [facility] ([facility]) Diastolic blood pressure 80 mm[Hg] 80 mm[Hg] [facility] ([facility]) Body height 75 [in_i] 75 [in_i] [facility] ([facility]) 6'3" [place] body weight 196 [lb_av] [facility] Body surface area Derived from formula 2.55 m2 2.55 m2 [facility] ([facility]) Systolic blood pressure 138 mm[Hg] 138 mm[Hg] [facility] ([facility]) Body temperature 98.2 [degF] 98.2 [degF] [facility] ([facility]) Body weight 284.00 [lb_av] 284.00 [lb_av] [facility] T ([facility]) Body mass index (BMI) [Ratio] 35.5 kg/m2 35.5 k g/m2 [facility] ([facility], ) Body weight 128.822 kg 128[address] [facility] [facility] Systolic blood pressure 122 mm[Hg] 122 mm[Hg] M [facility] ([facility]) Diastolic blood pressure 78 mm[Hg] 78 mm[Hg] [facility] ([facility]) Heart rate 78 /min 78 /min [facility] ([facility]) Body height 74 [in_i] 74 [in_i] [facility] ([facility]) 6'2" Body weight 281.00 [lb_av] 281.00 [lb_av] [facility] T ([facility]) Body mass index (BMI) [Ratio] 36.1 kg/m2 36.1 k g/m2 [facility] Body height 74 [in_i] 74 [in_i] [facility] ([facility]) 6'2" Systolic blood pressure 124 mm[Hg] 124 mm[Hg[facility] Diastolic blood pressure 80 mm[Hg] 80 mm[Hg] [facility] Heart rate 76 /min 76 /min [facility]) Body weight 284.00 [lb_av] 284.00 [lb_av] [facility] T ([facility]) Body mass index (BMI) [Ratio] 36.5 kg/m2 36.5 k g/m2 [facility] ([facility]) Systolic blood pressure 128 mm[Hg] 128 mm[Hg] [facility] Diastolic blood pressure 72 mm[Hg] 72 mm[Hg] [facility] ([facility]) Heart rate 80 /min 80 /min [facility] ([facility]) Body height 74 [in_i] 74 [in_i] [facility] ([facility]) 6'2" Body weight 286.00 [lb_av] 286.00 [lb_av] [facility] T ([facility]) Oxygen saturation in Arterial blood by Pulse oximetry 96 % 96 % [facility] ([facility]) Air Body mass index (BMI) [Ratio] 36.7 kg/m2 36.7 k g/m2 [facility] ([facility]) Body height 74 [in_i] 74 [in_i] [facility] ([facility]) 6'2" Systolic blood pressure 130 mm[Hg] 130 mm[Hg] [facility] ([facility]) Diastolic blood pressure 80 mm[Hg] 80 mm[Hg] [facility] ([facility]) Systolic blood pressure 132 mm[Hg] 132 mm[Hg] [facility] ([facility], [facility]) Diastolic blood pressure 90 mm[Hg] 90 mm[Hg] [facility] ([facility], [facility]) Heart rate 92 /min 92 /min [facility] ([facility], [facility]) Respiratory rate 15 /min 15 /min [facility] ( [facility], [facility]) Oxygen saturation in Arterial blood by Pulse oximetry 94 % 94 % [facility] ([facility], [facility]) Body temperature 97.5 [degF] 97.5 [degF] [facility] ([facility], [facility]) Deprecated Oxygen saturation in Capillary blood by Oximetry 95 % Normal (applies to non-numeric results) 95 % [facility] Systolic blood pressure 121 mm[Hg] Normal (applies t o non-numeric results) 121 mm[Hg] [facility] Diastolic blood pressure 73 mm[Hg] Normal (applies to non-numeric results) 73 mm[Hg] [facility] Heart rate 70 min Normal (applies to non-numeric resul ts) [address] [facility] Respiratory rate 16 min Normal (applies to non-numeric results) [address] [facility] Body temperature 37.0 ranjit Normal (applies to non-numeric results) 37.[address] [facility] Body height 190.1952 cm Normal (applies to non-numeric res ults) 190.[address] [facility] Body mass index (BMI) [Ratio] 34.39 kg/m2 No rmal (applies to non-numeric results) 34.39 kg/m2 [facility] Body weight Measured 124.8 kg Normal (applies to n on-numeric results) 124.[address] [facility] Systolic blood pressure 118 mm[Hg] 118 mm[Hg] M [facility] ([facility]) Diastolic blood pressure 72 mm[Hg] 72 mm[Hg] [facility] ([facility]) Heart rate 78 /min 78 /min [facility] ([facility]) Body height 74 [in_i] 74 [in_i] [facility] ([facility]) 6'2" Body weight 280.00 [lb_av] 280.00 [lb_av] [facility] ([facility]) Body mass index (BMI) [Ratio] 35.9 kg/m2 35.9 k g/m2 [facility] ([facility])
--- NOTE | 2021-08-03 18:31 | ECGEPIP ---
[facility] - ED Test Date: 2021-08-03 Pat Name: COREY SANDHU Department: Room: - Gender: Male Residential Building Inspector: OLGA : 1945 Requested By: Yamilka Herbert Order Number: [id number] Reading MD: Yamilka Herbert Measurements Intervals [place] Rate: 93 P: 30 DE: 166 QRS: -18 QRSD: 90 T: 72 QT: 370 QTc: 460 Interpretive Statements Normal sinus rhythm Nonspecific ST abnormality increased rate 12/26/16 Electronically Signed on 08-03-2021 18:31:22 EDT by Yamilka Herbert
[2021-08-03 19:23] LABS: RSV AMPLIFICATION NEGATIVE (NEGATIVE)
[2021-08-03] MEDS ORDERED: ISOVUE-370 76% 100ML VIAL As Ordered ONE (19:29)
--- NOTE | 2021-08-03 20:26 | REPVR ---
PROCEDURE INFORMATION: Exam: CTA Chest With Contrast Exam date and time: 08/03/2021 7:42 PM Age: 75 years old Clinical indication: Shortness of breath; Additional info: SOB; Chest pain TECHNIQUE: Imaging protocol: Computed tomographic angiography of the chest with contrast. 3D rendering (Not supervised by radiologist): MIP and/or 3D reconstructed images were created by the technologist. Radiation optimization: All CT scans at this facility use at least one of these dose optimization techniques: automated exposure control; mA and/or kV adjustment per patient size (includes targeted exams where dose is matched to clinical indication); or iterative reconstruction. 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 Pulmonary arteries: The main pulmonary artery measures 30 mm. No pulmonary embolism is identified. Aorta: The ascending thoracic aorta measures 40 mm. Lungs: Minimal scattered fibro-atelectatic change. No focal infiltrates. Pleural spaces: Unremarkable. No pneumothorax. No pleural effusion. Heart: Unremarkable. No cardiomegaly. No pericardial effusion. Lymph nodes: Unremarkable. No enlarged lymph nodes. Bones/joints: Unremarkable. No acute fracture. Soft tissues: Unremarkable. IMPRESSION: 1. Minimal scattered fibro-atelectatic change. 2. 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 3. Otherwise negative CTA chest. No pulmonary embolism is identified. Electronically signed by: Butch Sharma On 08/03/2021 20:25:25 PM
[2021-08-03 21:31] VITALS: BP 121/68
== END 2021-08-03 21:43 | disposition home or self-care (01) ==
LOC: M ED 15:54
DX: R06.00 Dyspnea, unspecified (principal); K21.9 Gastro-esophageal reflux disease without esophagitis; N40.0 Benign prostatic hyperplasia without lower urinary tract symptoms; Z79.899 Other long term (current) drug therapy
CPT/HCPCS: 71045; 71275; 80048; 80076; 83690; 83880; 84439; 84443; 84484; 85025; 87631; 93005; 93041; 94760; 99285; Q9967

== ENCOUNTER → 2021-12-10 | Outpatient (REF) | payer MEDICARE, OTHER ==
[2021-12-10 14:53] LABS: FOLATE 4.2 NG/ML; VITAMIN B12 LEVEL 544 PG/ML
== END ==
LOC: M LAB REF 12:35
PROVIDERS: ATTEND Family Medicine
DX: R41.3 Other amnesia (principal)

== ENCOUNTER → 2022-02-22 | Outpatient (CLI) | payer MEDICARE, OTHER ==
[~2022-02-22] MED LIST changes: +ALBU8.5H
== END ==
LOC: M LABSMTC 09:23
PROVIDERS: ATTEND Anesthesiology
DX: Z20.828 Contact with and (suspected) exposure to other viral communicable diseases (principal); Z11.59 Encounter for screening for other viral diseases

== ENCOUNTER 2022-02-25 10:20 | Day surgery (SDC) | payer MEDICARE, OTHER ==
[~2022-02-25] VITALS: Ht 190.5 cm; Wt 127.4 kg
[~2022-02-25 10:20] MED LIST changes: +NS 1,000 ML IV ONE
[2022-02-25] MEDS ORDERED: propofoL 200 MG/20 ML VIAL As Ordered ONE (11:04)
[2022-02-25] MEDS ORDERED: LIDOCAINE 2% 100MG/5ML SDV (FOR ANES.) As Ordered ONE (11:04)
[2022-02-25 13:10] VITALS: BP 120/68
== END 2022-02-25 13:25 | disposition home or self-care (01) ==
LOC: M OPP 10:20
PROVIDERS: ATTEND Surgery
DX: Z86.010 Personal history of colon polyps (principal); D12.6 Benign neoplasm of colon, unspecified; K21.9 Gastro-esophageal reflux disease without esophagitis; R42 Dizziness and giddiness; M19.90 Unspecified osteoarthritis, unspecified site; G62.9 Polyneuropathy, unspecified; N40.0 Benign prostatic hyperplasia without lower urinary tract symptoms; Z96.653 Presence of artificial knee joint, bilateral; Z96.611 Presence of right artificial shoulder joint; Z79.899 Other long term (current) drug therapy

== ENCOUNTER → 2022-06-16 | Outpatient (REF) | payer MEDICARE, OTHER ==
[~2022-06-16] MED LIST changes: -NS 1,000 ML IV ONE
[2022-06-16 13:53] LABS: FERRITIN 15 NG/ML (26-388); RHEUMATOID FACTOR QUANT < 10.0 IU/ML (<15.0); TOTAL PROTEIN 6.7 GM/DL (6.4-8.2)
[2022-06-16 14:19] LABS: VITAMIN B12 LEVEL 439 PG/ML
[2022-06-18 09:20] LABS: ALBUMIN 4.03 GM/DL (3.29-5.55); ALBUMIN % 60.1 % (55.8-66.1); ALPHA-1-GLOBULIN % 4.1 % (2.9-4.9); ALPHA-2-GLOBULINS % 10.8 % (7.1-11.8); BETA-1-GLOBULINS % 7.8 % (4.7-7.2); BETA-2-GLOBULINS % 5.3 % (3.2-6.5); GAMMA GLOBULIN % 11.9 % (11.1-18.8)
[2022-06-18 09:21] LABS: ALPHA-1-GLOBULINS 0.27 GM/DL (0.17-0.41); ALPHA-2-GLOBULINS 0.72 GM/DL (0.42-0.99); BETA-1-GLOBULINS 0.52 GM/DL (0.28-0.60); BETA-2-GLOBULINS 0.36 GM/DL (0.19-0.55)
[2022-06-21 07:32] LABS: DRVV SCREEN 36.2 SEC
[2022-06-21 15:07] LABS: ANA (HEP2) Negative (.); VITAMIN B1 LEVEL WHOLE BLOOD 128.6 nmol/L (66.5-200.0); VITAMIN B6,PYRIDOXAL PHOSPHATE 121.3 ug/L (3.4-65.2); VITAMIN E(ALPHA TOCOPHEROL) 8.1 mg/L (9.0-29.0)
== END ==
LOC: M LAB REF 12:15
PROVIDERS: ATTEND Family Medicine
DX: G60.9 Hereditary and idiopathic neuropathy, unspecified (principal); R41.81 Age-related cognitive decline

== ENCOUNTER → 2023-01-31 | Outpatient (CLI) | payer MEDICARE, OTHER ==
[2023-01-31 11:44] LABS: BLOOD UREA NITROGEN 19 MG/DL (9-23); CREATININE FOR GFR 0.84 MG/DL (0.70-1.30); GLOMERULAR FILTRATION RATE > 60.0 (>42)
== END ==
LOC: M LAB 10:44
PROVIDERS: ATTEND Psychiatry & Neurology Neurology
DX: I10 Essential (primary) hypertension (principal)

== ENCOUNTER → 2023-04-25 | Outpatient (REF) | payer MEDICARE, OTHER | LOC: M LAB REF 16:30 | PROVIDERS: ATTEND Family Medicine | DX: G60.9 Hereditary and idiopathic neuropathy, unspecified (principal) ==

== ENCOUNTER → 2023-09-07 | Outpatient (REF) | payer MEDICARE, OTHER ==
[~2023-09-07] MED LIST changes: +MECL-209 PO; -MECL1TAB31 PO
[2023-09-07 13:02] LABS: PERCENT SATURATION 28.5 % (19.7-50.0)
== END ==
LOC: M LAB REF 11:48
PROVIDERS: ATTEND Family Medicine
DX: G60.9 Hereditary and idiopathic neuropathy, unspecified (principal)

== ENCOUNTER → 2024-01-03 | Outpatient (REF) | payer MEDICARE, OTHER ==
[2024-01-03 21:46] LABS: APPEARANCE, URINE CLEAR (CLEAR); BACTERIA, URINE AUTO NEGATIVE (NEGATIVE); BILIRUBIN, URINE AUTO NEGATIVE (NEGATIVE); BLOOD, URINE BLOOD NEGATIVE (NEGATIVE); COLOR, URINE YELLOW (YELLOW); GLUCOSE, URINE (UA) AUTO NEGATIVE (NEGATIVE); KETONE, URINE AUTO NEGATIVE (NEGATIVE); LEUKOCYTE ESTERASE, URINE AUTO NEGATIVE (NEGATIVE); MUCUS, URINE SMALL (NEGATIVE); NITRITE, URINE AUTO NEGATIVE (NEGATIVE); PROTEIN, URINE AUTO NEGATIVE (NEGATIVE); RBC, URINE AUTO 0 /HPF (0-3); SPECIFIC GRAVITY URINE AUTO 1.025 (1.002-1.035); SQUAMOUS EPITHELIAL CELL UR AU 0 /HPF (0-6); WBC, URINE AUTO 1 /HPF (0-3)
== END ==
LOC: M LAB REF 21:03
PROVIDERS: ATTEND Physician Assistant Medical
DX: B34.9 Viral infection, unspecified (principal)

== ENCOUNTER 2024-01-06 05:33 | Emergency (ER) | payer MEDICARE, OTHER ==
[~2024-01-06] VITALS: Ht 190.5 cm; Wt 133.0 kg
[~2024-01-06 05:33] MED LIST changes: -ALBU8.5H; +ALBU8.5H INH; -DULO1CAP5; +DULO1CAP5 PO
[2024-01-06] MEDS ORDERED: GABA-1171 PO (07:38)
[2024-01-06] MEDS ORDERED: ECOT81TA5 PO (07:38)
[2024-01-06] MEDS: MORPHINE 2 MG/ML 1ML VIAL IV PRN (08:28)
[2024-01-06] MEDS: ONDANSETRON 4MG 2ML VIAL IV ONE (08:28)
[2024-01-06 08:49] LABS: BASO % 0.8 % (0.0-1.0); EOS # 0.2 10^3/uL (0.0-0.5); EOS % 3.3 % (0.0-3.0); HEMATOCRIT 45.8 % (42.0-52.0); LYMPH # 1.6 10^3/uL (1.5-5.0); LYMPH % 29.7 % (24.0-44.0); MEAN CORPUSCULAR HEMOGLOBIN 31.9 pg (27.0-33.0); MEAN CORPUSCULAR HGB CONC 34.9 g/dl (32.0-36.5); MEAN CORPUSCULAR VOLUME 91.2 fl (80.0-96.0); MONO # 0.5 10^3/uL (0.0-0.8); MONO % 8.8 % (2.0-8.0); PLATELET COUNT, AUTOMATED 190 10^3/uL (150-450); RED BLOOD COUNT 5.02 10^6/uL (4.30-6.10); WHITE BLOOD COUNT 5.2 10^3/uL (4.0-10.0)
[2024-01-06 09:13] LABS: BLOOD UREA NITROGEN 14 MG/DL (9-23); CALCIUM LEVEL 8.2 MG/DL (8.3-10.6); CARBON DIOXIDE LEVEL 30 MMOL/L (20-31); CHLORIDE LEVEL 105 MMOL/L (98-107); CREATININE FOR GFR 0.86 MG/DL (0.70-1.30); GLOMERULAR FILTRATION RATE > 60.0 (>42); GLUCOSE, FASTING 113 MG/DL (74-106); POTASSIUM SERUM 4.4 MMOL/L (3.5-5.1); SODIUM LEVEL 142 MMOL/L (136-145)
[2024-01-06] MEDS ORDERED: ACET-683 PO (10:13)
[2024-01-06] MEDS ORDERED: HOME MED LIST COMPLETE! XX SCH (10:15)
[2024-01-06] MEDS ORDERED: IBUP-1022 PO (13:05)
[2024-01-06 13:24] VITALS: BP 135/69; TEMP 98.4; O2SAT 95
== END 2024-01-06 13:27 | disposition home or self-care (01) ==
LOC: M ED 05:33
DX: M54.30 Sciatica, unspecified side (principal); M51.36 Other intervertebral disc degeneration, lumbar region; Z79.899 Other long term (current) drug therapy
CPT/HCPCS: 72110; 72148; 72170; 80048; 81001; 84145; 85025; 85652; 93041; 96374; 96375; 99284; J2405

== ENCOUNTER → 2024-03-08 | Outpatient (CLI) | payer MEDICARE, OTHER ==
[~2024-03-08] MED LIST changes: +ECOT81TA5 PO; +GABA-1171 PO; +IBUP-1022 PO
== END ==
LOC: M RAD 10:06
PROVIDERS: ATTEND Family Medicine
DX: R73.01 Impaired fasting glucose (principal); R09.89 Other specified symptoms and signs involving the circulatory and respiratory systems

== ENCOUNTER → 2024-05-12 | Outpatient (CLI) | payer MEDICARE, OTHER | LOC: M LAB 15:32 | PROVIDERS: ATTEND Family Medicine | DX: Z11.8 Encounter for screening for other infectious and parasitic diseases (principal) ==

== ENCOUNTER → 2024-07-23 | Outpatient (CLI) | payer MEDICARE, OTHER ==
[~2024-07-23] MED LIST changes: +GABA-1172; -GABA-282
== END ==
LOC: M RAD 14:57
PROVIDERS: ATTEND Family Medicine
DX: M16.11 Unilateral primary osteoarthritis, right hip (principal)

== ENCOUNTER 2024-09-05 09:44 | Outpatient (RCR) | payer MEDICARE, OTHER | END 2024-09-08 | LOC: M PT 09:44 | PROVIDERS: ATTEND Physician Assistant | DX: M54.16 Radiculopathy, lumbar region (principal); M25.551 Pain in right hip ==

== ENCOUNTER → 2024-09-18 | Outpatient (CLI) | payer MEDICARE, OTHER | LOC: M RAD 11:50 | PROVIDERS: ATTEND Family Medicine | DX: R06.2 Wheezing (principal) ==

== ENCOUNTER 2024-10-08 09:47 | Outpatient (RCR) | payer MEDICARE, OTHER | END 2024-10-09 | LOC: M PT 09:47 | PROVIDERS: ATTEND Physician Assistant | DX: R06.2 Wheezing (principal) ==

== ENCOUNTER 2024-11-08 09:42 | Outpatient (RCR) | payer MEDICARE, OTHER | END 2024-11-09 | LOC: M PT 09:42 | PROVIDERS: ATTEND Physician Assistant | DX: R53.1 Weakness (principal) ==

== ENCOUNTER 2024-12-06 09:46 | Outpatient (RCR) | payer MEDICARE, OTHER | END 2024-12-07 | LOC: M PT 09:46 | PROVIDERS: ATTEND Physician Assistant | DX: R53.1 Weakness (principal) ==

== ENCOUNTER 2024-12-31 17:11 | Observation (INO) | payer MEDICARE, OTHER ==
[~2024-12-31] VITALS: Ht 190.5 cm; Wt 134.6 kg
[2024-12-31 18:27] LABS: BASO % 0.2 % (0.0-1.0); EOS % 0.5 % (0.0-3.0); HEMATOCRIT 47.9 % (42.0-52.0); HEMOGLOBIN 16.4 g/dl (13.5-17.5); LYMPH # 0.4 10^3/uL (1.5-5.0); LYMPH % 5.3 % (24.0-44.0); MEAN CORPUSCULAR HEMOGLOBIN 31.9 pg (27.0-33.0); MEAN CORPUSCULAR HGB CONC 34.2 g/dl (32.0-36.5); MEAN CORPUSCULAR VOLUME 93.2 fl (80.0-96.0); MONO # 0.4 10^3/uL (0.0-0.8); MONO % 6.5 % (2.0-8.0); NEUTROPHILS # 5.8 10^3/uL (1.5-8.5); NEUTROPHILS % 87.2 % (36.0-66.0); PLATELET COUNT, AUTOMATED 183 10^3/uL (150-450); RED BLOOD COUNT 5.14 10^6/uL (4.30-6.10); WHITE BLOOD COUNT 6.6 10^3/uL (4.0-10.0)
[2024-12-31 18:39] LABS: INR 0.97; PARTIAL THROMBOPLASTIN TIME 27.7 SECONDS (24.8-34.2); PROTHROMBIN TIME 13.2 SECONDS (12.5-14.5)
[2024-12-31 18:51] LABS: CK-MB VALUE MASS 2.2 NG/ML (<3.6)
[2024-12-31 18:53] LABS: BLOOD UREA NITROGEN 19 MG/DL (9-23); CALCIUM LEVEL 8.3 MG/DL (8.3-10.6); CARBON DIOXIDE LEVEL 26 MMOL/L (20-31); CHLORIDE LEVEL 104 MMOL/L (98-107); CREATININE FOR GFR 0.92 MG/DL (0.70-1.30); GLOMERULAR FILTRATION RATE > 60.0 (>42); GLUCOSE, FASTING 112 MG/DL (74-106); POTASSIUM SERUM 4.3 MMOL/L (3.5-5.1); SODIUM LEVEL 139 MMOL/L (136-145)
[2024-12-31 18:55] LABS: CPK CREATINE PHOSPHOKINASE 184 U/L (46-171); MB/CK RELATIVE INDEX 1.19 (< OR =4)
[2024-12-31] MEDS ORDERED: ISOVUE-370 76% 100ML VIAL As Ordered ONE (19:07)
[2024-12-31 20:57] LABS: KETONE, URINE AUTO RFX NEGATIVE (NEGATIVE); LEUKOCYTE ESTERASE UR AUTO RFX NEGATIVE (NEGATIVE); MUCUS, URINE RFX SMALL (NEGATIVE); NITRITE, URINE AUTO RFX NEGATIVE (NEGATIVE); RBC, URINE AUTO RFX 1 /HPF (0-3); SQUAM EPITHELIAL CELL UR AURFX 0 /HPF (0-6); WBC, URINE AUTO RFX 1 /HPF (0-3)
[2024-12-31] MEDS ORDERED: ROPI0.5T33 PO (21:55)
[2024-12-31] MEDS ORDERED: AZEL1SPR3 (21:55)
[2024-12-31] MEDS ORDERED: CLOP75TA2 PO (21:55)
[2024-12-31] MEDS ORDERED: HOME MED LIST COMPLETE! XX SCH (22:00)
[2024-12-31] MEDS ORDERED: MOM 30ML SUSPENSION UDC PO PRN (23:25)
[2024-12-31] MEDS: NS 500 ML IV ONE (23:25)
[2024-12-31] MEDS ORDERED: MAALOX 30 ML SUSP *UDC PO PRN (23:25)
[2024-12-31] MEDS ORDERED: ACETAMINOPHEN 325 MG TAB PO PRN (23:25)
[2024-12-31 23:27] LABS: ALBUMIN 3.5 G/DL (3.2-5.2); BILIRUBIN,DIRECT 0.3 MG/DL (<0.4); BILIRUBIN,TOTAL 1.1 MG/DL (0.3-1.2); TOTAL PROTEIN 6.4 G/DL (5.7-8.2)
[2025-01-01 00:39] LABS: CK-MB VALUE MASS 1.5 NG/ML (<3.6); MB/CK RELATIVE INDEX 0.76 (< OR =4)
[2025-01-01 01:20] LABS: ETHYL ALCOHOL (ETHANOL) 0.004 % (0.000-0.010)
[2025-01-01 01:22] LABS: CHOLESTEROL RISK RATIO 4.78 (<5); LDL CHOLESTEROL 92.6 MG/DL (<100)
[2025-01-01 06:05] LABS: VENOUS BASE EXCESS -1.3 (-2.0-2.0); VENOUS HCO3 21.4 MMOL/L (23.0-27.0); VENOUS O2 SATURATION 95.5 % (60.0-80.0); VENOUS PARTIAL PRESSURE CO2 30.8 mmHg (38.0-50.0); VENOUS PARTIAL PRESSURE O2 78.2 mmHg (30.0-50.0); VENOUS STANDARD HCO3 23.4 MMOL/L; VENOUS TOTAL CO2 22.4 MMOL/L (24.0-28.0)
[2025-01-01 06:35] LABS: ALBUMIN 3.3 G/DL (3.2-5.2); ALKALINE PHOSPHATASE 86 U/L (40-129); ALT/SGPT 35 U/L (7.0-40); AST/SGOT 22 U/L (<34); BILIRUBIN,TOTAL 1.1 MG/DL (0.3-1.2); BLOOD UREA NITROGEN 19 MG/DL (9-23); CALCIUM LEVEL 8.1 MG/DL (8.3-10.6); CARBON DIOXIDE LEVEL 24 MMOL/L (20-31); CHLORIDE LEVEL 107 MMOL/L (98-107); CREATININE FOR GFR 0.92 MG/DL (0.70-1.30); GLOMERULAR FILTRATION RATE > 60.0 (>42); GLUCOSE, FASTING 110 MG/DL (74-106); MAGNESIUM LEVEL 1.8 MG/DL (1.8-2.4); POTASSIUM SERUM 3.8 MMOL/L (3.5-5.1); SODIUM LEVEL 140 MMOL/L (136-145); TOTAL PROTEIN 6.1 G/DL (5.7-8.2)
[2025-01-01 06:39] LABS: HEMATOCRIT 42.6 % (42.0-52.0); MEAN CORPUSCULAR HEMOGLOBIN 32.5 pg (27.0-33.0); MEAN CORPUSCULAR HGB CONC 35.2 g/dl (32.0-36.5); MEAN CORPUSCULAR VOLUME 92.2 fl (80.0-96.0); PLATELET COUNT, AUTOMATED 154 10^3/uL (150-450); RED BLOOD COUNT 4.62 10^6/uL (4.30-6.10); WHITE BLOOD COUNT 6.2 10^3/uL (4.0-10.0)
[2025-01-01 07:06] LABS: HEMOGLOBIN A1c 5.1 % (4.0-6.0)
[2025-01-01] MEDS: DOCUSATE SODIUM 100MG CAPSULE PO SCH (09:00)
[2025-01-01] MEDS: LR 1,000 ML IV ONE (11:33)
[2025-01-01] MEDS: ENOXAPARIN 40MG/0.4ML SYRINGE (J1650 PER 10MG) SC SCH (11:33)
[2025-01-01] MEDS: LR 1,000 ML IV SCH (13:15)
[2025-01-01] MEDS: LEVALBUTEROL 1.25MG 0.5ML CONCENTRATE NEB INH PRN (22:03)
[2025-01-01 22:53] LABS: BLOOD UREA NITROGEN 17 MG/DL (9-23); CALCIUM LEVEL 8.1 MG/DL (8.3-10.6); CARBON DIOXIDE LEVEL 26 MMOL/L (20-31); CHLORIDE LEVEL 106 MMOL/L (98-107); CK-MB VALUE MASS 2.1 NG/ML (<3.6); CPK CREATINE PHOSPHOKINASE 186 U/L (46-171); CREATININE FOR GFR 0.88 MG/DL (0.70-1.30); GLOMERULAR FILTRATION RATE > 60.0 (>42); GLUCOSE, FASTING 118 MG/DL (74-106); MB/CK RELATIVE INDEX 1.12 (< OR =4); SODIUM LEVEL 142 MMOL/L (136-145)
[2025-01-02] MEDS: D5W 1,000 ML IV ONE
[2025-01-02] MEDS: D5W 1,000 ML IV SCH (01:06)
[2025-01-02 10:16] VITALS: BP 138/78; TEMP 97.3; O2SAT 97
== END 2025-01-02 11:36 | disposition home or self-care (01) ==
LOC: M ED 17:11 → EDBEDREQSVC 21:28 → M ED INP 23:21 → INTOOBSV 23:21
PROVIDERS: ADMIT Student in an Organized Health Care Education/Training Program; ATTEND Student in an Organized Health Care Education/Training Program
DX: M48.062 Spinal stenosis, lumbar region with neurogenic claudication (principal); R41.82 Altered mental status, unspecified; R42 Dizziness and giddiness; I95.1 Orthostatic hypotension; E86.0 Dehydration; R19.7 Diarrhea, unspecified; K21.9 Gastro-esophageal reflux disease without esophagitis; K42.9 Umbilical hernia without obstruction or gangrene; M19.90 Unspecified osteoarthritis, unspecified site; N40.0 Benign prostatic hyperplasia without lower urinary tract symptoms; G25.81 Restless legs syndrome; Z79.899 Other long term (current) drug therapy; Z86.73 Personal history of transient ischemic attack (TIA), and cerebral infarction without residual deficits
CPT/HCPCS: 36415; 70450; 70496; 70498; 70551; 71045; 71275; 72148; 80048; 80053; 80061; 80076; 81001; 82077; 82140; 82550; 82553; 82803; 83036; 83735; 83874; 83880; 84484; 85025; 85027; 85610; 85730; 86850; 86900; 86901; 87486; 87581; 87633; 87798; 92526; 92610; 93005; 93041; 93306; 94640; 94760; 97161; 97165; 97530; 97535; 99285; G0378; J1650; Q9967

== ENCOUNTER → 2025-01-09 | Outpatient (REF) | payer MEDICARE, OTHER ==
[~2025-01-09] MED LIST changes: +AZEL1SPR3; +CLOP75TA2 PO; +ROPI0.5T33 PO
== END ==
LOC: M LAB REF 14:22
PROVIDERS: ATTEND Family Medicine
DX: M54.50 Low back pain, unspecified (principal)

== ENCOUNTER → 2025-02-07 | Outpatient (CLI) | payer MEDICARE, OTHER ==
[~2025-02-07] MED LIST changes: +METHACHOLINE KIT (6 VIAL.NEB PREMIX) INH ONE
== END ==
LOC: M CARPUL 10:18
PROVIDERS: ATTEND Physician Assistant
DX: R06.02 Shortness of breath (principal)
CPT/HCPCS: 94070; 95070; J7674

== ENCOUNTER → 2025-02-20 | Outpatient (CLI) | payer MEDICARE, OTHER ==
[~2025-02-20] MED LIST changes: -METHACHOLINE KIT (6 VIAL.NEB PREMIX) INH ONE
== END ==
LOC: M EKG 10:47
PROVIDERS: ATTEND Internal Medicine Cardiovascular Disease
DX: I63.9 Cerebral infarction, unspecified (principal); I49.40 Unspecified premature depolarization

== ENCOUNTER → 2025-02-20 | Outpatient (CLI) | payer MEDICARE, OTHER | LOC: M SLEEP HO 10:04 | PROVIDERS: ATTEND Internal Medicine Cardiovascular Disease | DX: I27.20 Pulmonary hypertension, unspecified (principal) ==

== ENCOUNTER → 2025-05-21 | Outpatient (CLI) | payer MEDICARE, OTHER | LOC: M EKG 10:39 | PROVIDERS: ATTEND Physician Assistant | DX: I63.9 Cerebral infarction, unspecified (principal); Z53.9 Procedure and treatment not carried out, unspecified reason ==

== ENCOUNTER → 2025-06-26 | Outpatient (CLI) | payer MEDICARE, OTHER ==
[~2025-06-26] MED LIST changes: -IBUP-1022 PO; +IBUP600T42 PO; -VITA100T14 PO; +VITA100T69 PO
== END ==
LOC: M SLEEP 20:00
PROVIDERS: ATTEND Physician Assistant
DX: G47.61 Periodic limb movement disorder (principal)

== ENCOUNTER → 2025-07-19 | Outpatient (REF) | payer MEDICARE, OTHER ==
[~2025-07-19] MED LIST changes: +FLUT1BLS4; +FURO20TA2 PO; +ROSU20TA86 PO; +[UNRECOGNIZED DRUG - OTHER]
== END ==
LOC: M LAB REF 13:04
PROVIDERS: ATTEND Physician Assistant
DX: I63.9 Cerebral infarction, unspecified (principal)

== ENCOUNTER → 2025-07-29 | Outpatient (CLI) | payer MEDICARE, OTHER ==
[2025-07-29 16:04] LABS: CALCIUM LEVEL 8.7 MG/DL (8.3-10.6); CARBON DIOXIDE LEVEL 28.0 MMOL/L (20-31); CHLORIDE LEVEL 107.0 MMOL/L (98-107); CREATININE FOR GFR 1.02 MG/DL (0.70-1.30); GLOMERULAR FILTRATION RATE 75.7 (>42); POTASSIUM SERUM 4.0 MMOL/L (3.5-5.1); SODIUM LEVEL 145.0 MMOL/L (136-145)
== END ==
LOC: M LAB 14:53
PROVIDERS: ATTEND Family Medicine
DX: R60.0 Localized edema (principal)

== ENCOUNTER 2025-08-01 09:28 | Day surgery (SDC) | payer MEDICARE, OTHER ==
[~2025-08-01] VITALS: Ht 190.5 cm; Wt 127.3 kg
[~2025-08-01 09:28] MED LIST changes: +LIDOCAINE 2% 100 MG/5 ML SDV (FOR ANES.) As Ordered ONE; +ONDANSETRON 4MG/2ML VIAL As Ordered ONE; +dexAMETHasone 4 MG/ML 1 ML VIAL As Ordered ONE
[2025-08-01] MEDS ORDERED: MIDAZOLAM INJ 2 MG/2 ML VIAL As Ordered ONE (10:41)
[2025-08-01] MEDS: ceFAZolin SOD 3 GM in DEXTROSE 5% (D5W) MINI-BAG PLU 1... IV ONE (11:26)
[2025-08-01] MEDS ORDERED: ACETAMINOPHEN 1000MG/100ML IV BAG As Ordered ONE (11:29)
[2025-08-01] MEDS: LIDOCAINE 1% SDV 30 ML VIAL As Ordered ONE (11:40)
[2025-08-01 12:28] VITALS: BP 130/80; TEMP 97.1; O2SAT 96
== END 2025-08-01 12:28 | disposition home or self-care (01) ==
LOC: M SDC 09:28
PROVIDERS: ATTEND Internal Medicine Cardiovascular Disease
DX: I63.9 Cerebral infarction, unspecified (principal); E78.5 Hyperlipidemia, unspecified; K21.9 Gastro-esophageal reflux disease without esophagitis; K44.9 Diaphragmatic hernia without obstruction or gangrene; F03.90 Unspecified dementia, unspecified severity, without behavioral disturbance, psychotic disturbance, mood disturbance, and anxiety; N40.0 Benign prostatic hyperplasia without lower urinary tract symptoms; Z79.82 Long term (current) use of aspirin; Z86.73 Personal history of transient ischemic attack (TIA), and cerebral infarction without residual deficits; Z79.02 Long term (current) use of antithrombotics/antiplatelets; Z79.899 Other long term (current) drug therapy
CPT/HCPCS: 33285; C1764; J0131; J0688; J1100; J2250; J2405; J3010